=== PATIENT | female | born 1950 | race Caucasian/White ===

== ENCOUNTER → 2017-12-07 11:29 | Outpatient (CLI) | payer MEDICARE, BC, SELFPAY ==
--- NOTE | 2017-12-07 11:37 | XR_ITS ---
EXAM: XR lumbar spine min 4V HISTORY: ITS.REASON: CATRACHITA LOW BACK PAIN ORDERING PHYSICIAN: Dian Terrell PATIENT AGE: 67 years COMPARISON: None FINDINGS: Normal alignment. No fracture or dislocation. No lytic or blastic change. The endplate osteophyte present along the inferior endplate of L2 . IMPRESSION: 1. No acute finding. 2. Small endplate osteophyte inferior endplate of L2
== END ==
PROVIDERS: PCP Nurse Practitioner Family; Visit Provider Nurse Practitioner Family
DX: M54.5 Low back pain (principal)
CPT/HCPCS: 72110

== ENCOUNTER → 2017-12-22 10:48 | Outpatient (CLI) | payer MEDICARE, BC, SELFPAY ==
--- NOTE | 2017-12-22 10:50 | MR_ITS ---
MR lumbar spine wo con, MR 3-d myelogram/MRCP HISTORY: Left-sided sciatica, severe low back pain with weakness in legs, leg pain ITS.REASON: LEFT SIDED SCIATICA ORDERING PHYSICIAN: Darius Joseph MD PATIENT AGE: 67 years COMPARISON: Radiograph of 12/07/2017 TECHNIQUE: Standard multiplanar multiecho sequences are performed without contrast. 3-D MIP and myelographic images are also rendered and reviewed FINDINGS: There is normal alignment. The spinal cord ends at the T12 level. The disc spaces are well-preserved. No disc herniation, canal stenosis, lateral recess, or foraminal narrowing evident. No significant disc bulge or significant degenerative change. There is a small area of decreased T2 signal which involves the mid aspect of the left kidney laterally. This measures 9 mm. IMPRESSION: 1. Negative MRI of the lumbar spine. 2. Small T2 hypointensity in the left kidney laterally which could be due to a hemorrhagic cyst. Ultrasound may confirm.
== END ==
PROVIDERS: Family Provider Internal Medicine Adolescent Medicine; PCP Nurse Practitioner Family; Visit Provider Internal Medicine Adolescent Medicine
DX: M54.32 Sciatica, left side (principal)
CPT/HCPCS: 72148; 76376

== ENCOUNTER → 2019-05-18 16:35 | Outpatient (CLI) | payer MEDICARE, BC, SELFPAY ==
[2019-05-18 17:32] LABS: Adenovirus F 40/41, stool Not Detected (NotDetected); Astrovirus Not Detected (NotDetected); Campylobacter Not Detected (NotDetected); Clostridium Difficile A/B, PCR Not Detected (NotDetected); Cryptosporidium Not Detected (NotDetected); Cyclospora Cayetanesis Not Detected (NotDetected); Entamoeba histolytica Not Detected (NotDetected); Enteroaggregative E coli Not Detected (NotDetected); Enteropathogenic E coli Not Detected (NotDetected); Enterotoxigenic E coli Not Detected (NotDetected); Giardia lamblia Not Detected (NotDetected); Norovirus Not Detected (NotDetected); Plesimonas Shigalloides, PCR Not Detected (NotDetected); Rotavirus A Not Detected (NotDetected); Salmonella, PCR Not Detected (NotDetected); Sapovirus Not Detected (NotDetected); Shiga-like toxin E coli Not Detected (NotDetected); Shigella Enterovasive E coli Not Detected (NotDetected); Vibrio Cholerae Not Detected (NotDetected); Vibrio, PCR Not Detected (NotDetected); Yersinia Entercolitica, PCR Not Detected (NotDetected)
== END ==
PROVIDERS: PCP Internal Medicine Adolescent Medicine; Visit Provider Emergency Medicine
DX: K52.89 Other specified noninfective gastroenteritis and colitis (principal)
CPT/HCPCS: 87507

== ENCOUNTER → 2019-07-30 14:46 | Outpatient (CLI) | payer MEDICARE, BC, SELFPAY ==
--- NOTE | 2019-07-30 14:51 | MR_ITS ---
PROCEDURE: MR HEAD/BRAIN WO CON CLINICAL INDICATION: VERTIGO, TINNITUS OF BOTH EARS COMPARISON: No exams were available for comparison TECHNIQUE: At routine multi-echo and multiplanar images including susceptibility and diffusion-weighted images. FINDINGS: There is no mass, hemorrhage or extra-axial fluid collections. There are no areas of restricted diffusion. Ventricles, sulci and cortical areas are normal. The brainstem areas and posterior fossa structures including petrous portions of the temporal bones and internal auditory canals are normal however study is somewhat limited without the use of intravenous contrast. There is evidence of left orbital globe lens surgery and otherwise the visualized portions of the optic pathway structures are normal. There are small symmetrical areas of increased FLAIR signal within the periventricular white matter adjacent to the trigone portion of the lateral ventricles in a few small foci involving bilateral superior frontal lobe areas. Visualized vessels are patent in the area the foramen magnum is normal. The visualized paranasal sinuses and mastoid air cells are clear. IMPRESSION: White matter findings as described nonspecific although likely either age related or from mild chronic microvascular ischemic change. Dictated by: Sam Oscar 07/30/2019 16:29 Electronically signed by Sam Oscar in [place] 07/30/2019 16:29
== END ==
PROVIDERS: PCP Internal Medicine Adolescent Medicine; Visit Provider Internal Medicine Adolescent Medicine
DX: R42 Dizziness and giddiness (principal); H93.13 Tinnitus, bilateral
CPT/HCPCS: 70551

== ENCOUNTER 2020-08-19 11:44 | Emergency (ER) | payer MEDICARE, BC, SELFPAY ==
[2020-08-19 11:55] VITALS: BP 155/93; PULSE 118; RESP 18; TEMP 36.7; O2SAT 98; BMI 29.7
--- NOTE | 2020-08-19 12:14 | HMH.EDUTC ---
[facility] [place] Impression: Sinusitis Qualifiers: Sinusitis location: unspecified location Chronicity: unspecified Qualified Code(s): J32.9 - Chronic sinusitis, unspecified Disposition: Home, Self-Care Condition on Discharge: Good Instructions: Sinusitis, Sinus Headache, DI for Sinusitis, Azithromycin, Mometasone Nasal Victor Additional Instructions: *Monitor Temp, Over the counter Motrin or Tylenol as directed/as needed Tylenol every 4 hours and Motrin every 6 hours (as long as your family doctor has told you that you can take it) for fever or pain. and straight to ER if unable to lower temp less than 101.0 after medication given *Warm salt water gargles may help to soothe the throat *Throat Lozenges *Warm fluids like tea with honey may help to soothe the throat *Sleep elevated *Humidifier/Vaporizer Continue using nasal spray as prescribed Follow up IMMEDIATELY for new or worsening symptoms or no Noticeable improvement over the next 48-72 hours. 911 for difficulty breathing or swallowing Prescriptions: Benzonatate [Tessalon Perle 100mg Cap*] 100 mg PO TID PRN #15 cap PRN Reason: Cough [facility]: [facility] Azithromycin [Z-Michael 250mg Tab] 250 mg PO DIRECTED #6 tab Transmission Status: [facility] Referrals: Darius Joseph MD [Primary Care Provider] - As needed Time of Disposition: 12:24 Medical Decision Making - Cral Inquiry Pt receiving controlled substance: No Carl was queried for this patient: No Vital Signs: 08/19/20 11:55 Temperature 98.1 F Temperature Source Oral Pulse Rate [Radial] 118 H Respiratory Rate 18 Blood Pressure [Right Arm] 155/93 H Blood Pressure Mean [Right Arm] 113 Blood Pressure Source [Right Arm] Automatic Cuff Blood Pressure Position [Right Arm] Sitting 02 Sat by Pulse Oximetry 98 Oxygen Delivery Method Room Air Medical Decision Narrative: Patient state that she has taken azithromycin without reaction and complications [facility] [place] - General Stated complaint: sinus, headache,sore throat Time Seen by Provider: 08/19/20 12:14 Mode of Arrival: Ambulatory Source of Information: Patient Limitations: No Limitations Description of Symptoms (Recalled from Triage Doc. by RN): sinus, headache, sore throat. HEENT Symptoms (Recalled from RN notes): Yes Resp Symptoms (Recalled from RN notes): No Skin Symptoms (Recalled from RN notes): No MS Symptoms (Recalled from RN notes): No Functional Status (Recalled from RN notes): wnl - History of Present Illness Provider Complaint: Patient states that she gets a bad sinus infection about this time every year and has to come in and get a zpack States that she has been having sinus pain and pressure along with drainage in the back of her throat that is making her throat irritated States that drainage started clear and now is yellowish green and making her have a sinus headache and cough Denies exposure to COVID - Related Data Home Medications Medication Instructions Recorded Confirmed Fexofenadine/Pseudoephedrine 1 each PO DAILY 03/01/18 07/15/19 [Michelle-D 24 Hour Tablet] Previous Rx's Medication Instructions Recorded Meclizine HCl [Meclizine 25mg Tab] 25 mg PO TID PRN #15 tab 07/15/19 Azithromycin [Z-Michael 250mg Tab] 250 mg PO DIRECTED #6 tab 08/19/20 Benzonatate [Tessalon Perle 100mg 100 mg PO TID PRN #15 cap 08/19/20 Cap*] Allergies Allergy/AdvReac Type Severity Reaction Status Date / Time Penicillins [PENICILLINS] Allergy Unknown Verified 03/01/18 16:08 bacitracin Allergy Verified 04/14/18 15:09 [From Neosporin ([id number])] gabapentin Allergy Verified 12/29/18 10:14 neomycin Allergy Verified 04/14/18 15:09 [From Neosporin ([id number])] polymyxin B Allergy Verified 04/14/18 15:09 [From Neosporin ([id number])] - Worker's Comp Is this a Worker's Comp case?: No [facility] History -
[2020-08-19 12:24] VITALS: BP 155/93; PULSE 118; RESP 18; TEMP 36.7; O2SAT 98
== END 2020-08-19 12:26 | disposition home or self-care (01) ==
PROVIDERS: Emergency Provider Nurse Practitioner; PCP Internal Medicine Adolescent Medicine
DX: J32.9 Chronic sinusitis, unspecified (principal); C50.911 Malignant neoplasm of unspecified site of right female breast; Z90.49 Acquired absence of other specified parts of digestive tract; Z90.710 Acquired absence of both cervix and uterus; Z88.0 Allergy status to penicillin
CPT/HCPCS: 99201

== ENCOUNTER → 2020-09-03 16:23 | Outpatient (CLI) | payer MEDICARE, BC, SELFPAY ==
--- NOTE | 2020-09-03 | XR_ITS ---
PROCEDURE: XR RIBS RT 2V CLINICAL INDICATION: RT CHEST WALL PAIN COMPARISON: No exams were available for comparison FINDINGS: Multiple views of the right ribs show no obvious fracture. No lytic or blastic change. Consider follow-up in 7-[address] with 3D reformats if pain persists IMPRESSION: No acute findings. Dictated by: David Salinas MD 09/03/2020 17:18 David Salinas MD in [place] 09/03/2020 17:18
--- NOTE | 2020-09-03 | XR_ITS ---
PROCEDURE: XR CHEST 2V CLINICAL HISTORY: RT CHEST WALL PAIN COMPARISON: CR CXR CHEST(2 VIEWS-NOT PORTABLE) from 08/08/2014 FINDINGS: The cardiomediastinal silhouette and pulmonary vascularity are within normal limits. The lungs are clear without infiltrates, suspicious nodules, or pleural effusions. Calcified granuloma is present in the left lower lobe. No acute bony abnormalities. IMPRESSION: No acute findings. Dictated by: David Salinas MD 09/03/2020 17:19 David Salinas MD in [place] 09/03/2020 17:19
== END ==
PROVIDERS: PCP Internal Medicine Adolescent Medicine; Visit Provider Internal Medicine Adolescent Medicine
DX: R07.89 Other chest pain (principal)
CPT/HCPCS: 71046; 71100

== ENCOUNTER 2021-08-04 10:30 | Emergency (ER) | payer MEDICARE, BC, SELFPAY ==
[2021-08-04 10:40] VITALS: BP 141/73; PULSE 71; RESP 18; TEMP 36.7; O2SAT 97; BMI 28.3
--- NOTE | 2021-08-04 11:11 | HMH.EDUTC ---
[facility] [place] Impression: Infected skin tear Disposition: Home, Self-Care Condition on Discharge: Good Instructions: DI for Cellulitis -- Adult, Doxycycline Additional Instructions: Clean area well with antibacterial soap and water Take oral antibiotic as prescribed Return if needed Straight to ER if any life threatening symptoms Follow up with Family Doctor if needed Prescriptions: Doxycycline Monohydrate [Doxycycline Jennings 100mg Tab] 100 mg PO Q12 7 Days #14 tab Transmission Status: Received by [facility] Referrals: Darius Joseph MD [Primary Care Provider] - As needed Time of Disposition: 11:17 Medical Decision Making - Carl Inquiry Pt receiving controlled substance: No Carl was queried for this patient: No Vital Signs: 08/04/21 10:40 08/04/21 11:13 Temperature 98.0 F 98.0 F Temperature Source Temporal Artery Scan Pulse Rate 71 Pulse Rate [Right Brachial] 71 Respiratory Rate 18 18 Blood Pressure 141/73 H Blood Pressure [Right Arm] 141/73 H Blood Pressure Mean [Right Arm] 95 Blood Pressure Source [Right Arm] Automatic Cuff Blood Pressure Position [Right Arm] Sitting 02 Sat by Pulse Oximetry 97 Oxygen Delivery Method Room Air [facility] [place] - General Stated complaint: AO 07/31 laceration rt arm Time Seen by Provider: 08/04/21 11:11 Mode of Arrival: Ambulatory Source of Information: Patient Limitations: No Limitations Description of Symptoms (Recalled from Triage Doc. by RN): PATIENT C/O SKIN TEAR TO RIGHT FOREARM. SHE REPORTS ON MONDAY SHE WAS TRYING TO CATCH A CABINET WHILE IT WAS FALLING AND IT CUT HER ARM. SHE STATES SHE IS UP TO DATE ON TDAP HEENT Symptoms (Recalled from RN notes): No Resp Symptoms (Recalled from RN notes): No Skin Symptoms (Recalled from RN notes): Yes MS Symptoms (Recalled from RN notes): No Functional Status (Recalled from RN notes): WNL - History of Present Illness Provider Complaint: Patient states that she is up to date on her TDAP States that on Monday a cabinet door was falling and she tried to catch it and it caused a skin tear on her right forearm States that she thought it would be ok but today she noticed it was looking red like it was getting infected so she came in to get it checked out - Related Data Previous Rx's Medication Instructions Recorded Doxycycline Monohydrate 100 mg PO Q12 7 Days #14 tab 08/04/21 [Doxycycline Jennings 100mg Tab] Allergies Allergy/AdvReac Type Severity Reaction Status Date / Time Penicillins [PENICILLINS] Allergy Unknown Verified 03/01/18 16:08 bacitracin Allergy Verified 04/14/18 15:09 [From Neosporin ([id number])] gabapentin Allergy Verified 12/29/18 10:14 neomycin Allergy Verified 04/14/18 15:09 [From Neosporin ([id number])] polymyxin B Allergy Verified 04/14/18 15:09 [From Neosporin ([id number])] - Worker's Comp Is this a Worker's Comp case?: No [facility] [place] History - Hepatitis A Screen Drug use history?: No High risk sexual behaviors?: No History of sexually transmitted infection?: No Currently employed?: No Childcare worker?: No Do you have indoor plumbing?: Yes Do you have electricity?: Yes Attestation statement:: This patient has been screened for Hepatitis A risk factors. I have reviewed the patient's past medical history: Yes Medical History: Reports:: Cancer (breast, stage 0, completed radiation only) Denies:: Diabetes Mellitus Type 1, Diabetes Mellitus Type 2, MRSA Other Medical History: Reports: Other (allergies) Laterality Cases: Right: Lumpectomy, Other, Bilateral: Tonsillectomy Other Surgeries: Yes: Appendectomy, Cholecystectomy, Other (hysterectomy, right breast lumpectomy (preca, stage 0), lt foot cyst,) Amputation: No Fractures: No - Social History Smoking Status: Never smoker Alcohol Intake: never Occupational Status: other Housing: house Household Members: spouse ROS Obtained: Yes All systems rev
[2021-08-04 11:13] VITALS: BP 141/73; PULSE 71; RESP 18; TEMP 36.7; O2SAT 97
== END 2021-08-04 11:31 | disposition home or self-care (01) ==
PROVIDERS: Emergency Provider Nurse Practitioner; PCP Internal Medicine Adolescent Medicine
DX: S51.811A Laceration without foreign body of right forearm, initial encounter (principal); W22.03XA Walked into furniture, initial encounter; Y92.019 Unspecified place in single-family (private) house as the place of occurrence of the external cause; Z88.0 Allergy status to penicillin
CPT/HCPCS: 99202; G0463

== ENCOUNTER 2021-12-25 14:11 | Emergency (ER) | payer MEDICARE, BC, SELFPAY ==
--- NOTE | 2021-12-25 15:26 | HMH.EDUTC ---
[facility] [place] Clinical Impression: Left otitis media Qualifiers: Otitis media type: suppurative Chronicity: acute Recurrence: non-recurrent Spontaneous tympanic membrane rupture: without spontaneous rupture Qualified Code(s): H66.002 - Acute suppurative otitis media without spontaneous rupture of ear drum, left ear Disposition: Home, Self-Care Condition on Discharge: Good Instructions: Middle Ear Infection Additional Instructions: Drink plenty of fluids. Take tylenol for pain or fever. Take the medications as directed. Follow up with your regular doctor. GO TO THE ER FOR ANY WORSENING SYMPTOMS Don't start the oral steroids until tomorrow, since you had the shot here today. Prescriptions: methylPREDNISolone [Medrol] 4 mg PO DIRECTED 6 Days #21 packet Transmission Status: Received by [facility] Azithromycin [Z-Michael 250mg Tab*] 250 mg PO UD DOSE PK #6 tab Transmission Status: Received by [facility] Referrals: Darius Joseph MD [Primary Care Provider] - Time of Disposition: 16:09 Medical Decision Making - Medical Records Medical records reviewed: No: I reviewed the patient's medical records. - Carl Inquiry Pt receiving controlled substance: No Vital Signs: 12/25/21 15:30 12/25/21 16:17 Temperature 98.2 F 98.2 F Temperature Source Oral Pulse Rate 109 H Pulse Rate [Left] 109 H Respiratory Rate 18 18 Blood Pressure 188/81 H Blood Pressure [Right Arm] 188/81 H Blood Pressure Mean [Right Arm] 116 02 Sat by Pulse Oximetry 96 Orders (Tests/Meds): ED MEDICATIONS Discontinued Medications Generic Name Dose Route Start Last Admin Trade Name Radha PRN Reason Stop Dose Admin Methylprednisolone Sodium Succinate 125 mg 12/25/21 15:45 12/25/21 15:49 Methylprednisolone Sod Succ 125mg Vial IM 12/25/21 15:46 125 mg ONCE ONE Administration [facility] [place] HPI - General Stated complaint: facial swelling, lt ear pain Time Seen by Provider: 12/25/21 15:26 - History of Present Illness Provider Complaint: She has had left ear pain and a swollen area below her ear for the past 2 days. She gets ear infections frequently and usually she doesn't have this swelling wiht them, but she has had it sometimes in the past. She denies any fever or chills. - Related Data Previous Rx's Medication Instructions Recorded Doxycycline Monohydrate 100 mg PO Q12 7 Days #14 tab 08/04/21 [Doxycycline Attala 100mg Tab] Azithromycin [Z-Michael 250mg Tab*] 250 mg PO UD DOSE PK #6 tab 12/25/21 methylPREDNISolone [Medrol] 4 mg PO DIRECTED 6 Days #21 12/25/21 packet Allergies Allergy/AdvReac Type Severity Reaction Status Date / Time Penicillins [PENICILLINS] Allergy Unknown Verified 03/01/18 16:08 bacitracin Allergy Verified 04/14/18 15:09 [From Neosporin ([id number])] gabapentin Allergy Verified 12/29/18 10:14 neomycin Allergy Verified 04/14/18 15:09 [From Neosporin ([id number]-tyr-[id number])] polymyxin B Allergy Verified 04/14/18 15:09 [From Neosporin ([id number]-jsq-seara)] [facility] History - Hepatitis A Screen Attestation statement:: This patient has been screened for Hepatitis A risk factors. I have reviewed the patient's past medical history: Yes Medical History: Reports:: Cancer (breast, stage 0, completed radiation only) Denies:: Diabetes Mellitus Type 1, Diabetes Mellitus Type 2, MRSA Other Medical History: Reports: Other (allergies) Laterality Cases: Right: Lumpectomy, Other, Bilateral: Tonsillectomy Other Surgeries: Yes: Appendectomy, Cholecystectomy, Other (hysterectomy, right breast lumpectomy (preca, stage 0), lt foot cyst,) Amputation: No Fractures: No - Social History Smoking Status: Never smoker Alcohol Intake: never Occupational Status: other Housing: house Household Members: spouse ROS Obtained: Yes All systems reviewed & no additional complaints - Constitutional Constitutional: Reports as per HPI
[2021-12-25 15:30] VITALS: BP 188/81; PULSE 109; RESP 18; TEMP 36.8; O2SAT 96; BMI 29.0
[2021-12-25 16:17] VITALS: BP 188/81; PULSE 109; RESP 18; TEMP 36.8
== END 2021-12-25 16:17 | disposition home or self-care (01) ==
PROVIDERS: Emergency Provider Nurse Practitioner Family; PCP Internal Medicine Adolescent Medicine
DX: H66.002 Acute suppurative otitis media without spontaneous rupture of ear drum, left ear (principal); Z88.0 Allergy status to penicillin
CPT/HCPCS: G0463; 96372; 99202

== ENCOUNTER → 2022-05-04 12:34 | Outpatient (CLI) | payer MEDICARE, BC, SELFPAY ==
--- NOTE | 2022-05-04 | CA_ITS ---
FINAL REPORT TECHNIQUE: Color Doppler, duplex Doppler and fry scale sonography of the bilateral neck vasculature was performed. Velocities were measured in the carotid arteries. Stenosis evaluation based on velocity criteria. CLINICAL HISTORY: HTN, dizziness FINDINGS: The peak systolic velocity of the right common carotid artery is 91 cm/sec and internal carotid artery 86 cm/sec. The diastolic velocity in the internal carotid artery is 31 cm/sec. The ICA/CCA ratio is 1.44. Visually, a small amount of plaque is seen. These findings are consistent with less than 50% stenosis. The external carotid artery is patent. The right vertebral artery is patent with antegrade flow. The peak systolic velocity of the left common carotid artery is 106 cm/sec and internal carotid artery 87 cm/sec. The diastolic velocity in the internal carotid artery is 30 cm/sec. The ICA/CCA ratio is 1.14. Visually, a small amount of plaque is seen. These findings are consistent with less than 50% stenosis. The external carotid artery is patent. The left vertebral artery is patent with antegrade flow. IMPRESSION: No evidence of significant carotid stenosis. Bilateral patent vertebral arteries. If indicated, CTA or MRA could further evaluate. Reviewed, Interpreted and Dictated by Benoit Matamoros III, MD Transcribed by Robert Ventura Authenticated and [facility]
== END ==
PROVIDERS: PCP Internal Medicine Adolescent Medicine; Visit Provider Nurse Practitioner Family
DX: R42 Dizziness and giddiness (principal); I10 Essential (primary) hypertension
CPT/HCPCS: 93880

== ENCOUNTER 2022-10-30 15:11 | Emergency (ER) | payer MEDICARE, BC, SELFPAY ==
--- NOTE | 2022-10-30 17:03 | XR_ITS ---
PROCEDURE INFORMATION: Exam: XR Right Hip Exam date and time: 10/30/2022 5:01 PM Age: 72 years old Clinical indication: Patient HX: Right hip pain down leg TECHNIQUE: Imaging protocol: Radiologic exam of the Right hip. Views: 2 or 3 views hip with pelvis when performed. COMPARISON: CR Acute Abdomen 05/18/2019 1:07 PM FINDINGS: Bones/joints: Unremarkable for age. No acute fracture, deformity or bone lesion detected. Joint surfaces preserved. Soft tissues: Unremarkable. IMPRESSION: Negative examination right hip.
--- NOTE | 2022-10-30 17:03 | XR_ITS ---
PROCEDURE INFORMATION: Exam: XR Right Femur Exam date and time: 10/30/2022 5:03 PM Age: 72 years old Clinical indication: Patient HX: Right hip pain down leg TECHNIQUE: Imaging protocol: Radiologic exam of the Right femur. Views: 2 views. COMPARISON: CR XR HIP RT 2-3V W/PELVIS 10/30/2022 5:01 PM FINDINGS: Bones/joints: Unremarkable. No acute fracture. No bony deformity. Soft tissues: Unremarkable. IMPRESSION: Normal exam.
[2022-10-30 17:10] VITALS: BP 196/86; PULSE 85; RESP 20; TEMP 36.8; O2SAT 99; BMI 29.8
--- NOTE | 2022-10-30 17:26 | EXP.UTC ---
Discharge Plan Disposition Patient Disposition: Home, Self-Care Condition: Good Prescriptions Prescriptions: New methylprednisolone 4 mg Tablets,Dose Pack 4 mg PO DIRECTED Qty: 21 0RF Discontinued doxycycline monohydrate 100 MG tablet 100 mg PO Q12 7 Days Qty: 14 0RF azithromycin 250 MG tablet 250 mg PO UD DOSE PK Qty: 6 0RF Rx Instructions: Take two (2) tablets today, then one (1) tablet days #2 thru #5 methylprednisolone 4 MG tablets,dose pack 4 mg PO DIRECTED 6 Days Qty: 21 0RF Referrals Follow up/Referrals: Darius Joseph MD [Primary Care Provider] - See instructions Activity Restrictions/Add. Instructions Additional Instructions/Restrictions: Go home and rest. It would be best if you rested for the next few days and try not to over do anything. No heavy lifting. No twisting. Take the oral medications as directed. Don't start the oral steroids (medrol dose pack) until tomorrow, since you had the shots in here today. Follow up with your regular doctor. If you're not doing some better within 48 hours then make sure you follow up here or with your primary care physician. GO TO THE ER FOR ANY WORSENING SYMPTOMS OR CONCERN, ESPECIALLY BOWEL OR BLADDER ISSUES, SADDLE AREA NUMBNESS, FEVER, ETC Clinical Impressions Clinical Impression: Radicular pain of right lower extremity Instructions Patient Instructions: Methylprednisolone Injection, DI for Lumbar Radiculopathy, Ketorolac Injection Discharge ED Provider: Ramez Chery [facility] General Stated complaint: right hip pain no accident Time Seen by Provider: 10/30/22 17:26 History of Present Illness Provider Complaint: She c/o pain in her right leg that radiates from her hip area down her leg to her foot. She denies any known injury. She has a history of getting sciatica of her left leg, but she has never had it in the right. She states that this feels like her sciatica but she has never had it in this leg before. She denies any recent injury, falls, etc. She denies any fever/chills/malaise. She does have a history of advanced osteopenia, so she is worried about her hip and would like it to be x-rayed. Related Data Previous Rx's Medication Instructions Recorded methylprednisolone 4 mg tablets in 4 mg PO DIRECTED #21 tabs 01/01/23 a dose pack Allergies Allergy/AdvReac Type Severity Reaction Status Date / Time Penicillins [PENICILLINS] Allergy Unknown Verified 03/01/18 16:08 bacitracin Allergy Verified 04/14/18 15:09 [From Neosporin ([id number])] gabapentin Allergy Verified 12/29/18 10:14 neomycin Allergy Verified 04/14/18 15:09 [From Neosporin ([id number])] polymyxin B Allergy Verified 04/14/18 15:09 [From Neosporin ([id number])] [facility] Disclaimer: The information contained in this section may have been updated after the patient was seen, as this information can be updated by other users. Medical History Kidney stone Urinary tract infection Surgical History History of appendectomy History of section History of cholecystectomy History of hysterectomy Social History Smoking Status: Never smoker alcohol intake: never current occupational status: other Travel in the last 8 weeks: None household members: spouse housing: house ROS Obtained: Yes All systems reviewed & no additional complaints except as documented Constitutional Constitutional: Denies chills and Denies fever(s) Eyes Eyes: Denies eye discharge ENT Ears, Nose, Mouth, and Throat: Denies dizziness, Denies otalgia and Denies sore throat Cardiovascular Cardiovascular: Denies chest pain Respiratory Respiratory: Denies shortness of breath, Denies chest congestion, Denies cough, Denies stridor and Denies whee
[2022-10-30 17:45] VITALS: BP 196/86; PULSE 85; RESP 20; TEMP 36.8; O2SAT 99
== END 2022-10-30 18:07 | disposition home or self-care (01) ==
PROVIDERS: Emergency Provider Nurse Practitioner Family; PCP Internal Medicine Adolescent Medicine
DX: M54.10 Radiculopathy, site unspecified (principal); M25.551 Pain in right hip; M85.80 Other specified disorders of bone density and structure, unspecified site
CPT/HCPCS: 73502; 73552; 96372; 99213; 99214; G0463

== ENCOUNTER → 2022-11-09 07:07 | Outpatient (CLI) | payer MEDICARE, BC, SELFPAY ==
--- NOTE | 2022-11-09 07:32 | MR_ITS ---
FINAL REPORT CLINICAL HISTORY: ACUTE RIGHT SIDED LOW BACK PAIN WITH SCIATICA. low back pain into right hip x1.5 weeks. FINDINGS: MRI LUMBAR SPINE W/O CONTRAST Multiplanar MR imaging of the lumbar spine was performed without contrast. On the sagittal T2-weighted images, disc degeneration is seen at multiple levels. There are mild endplate changes at multiple levels. Several hemangiomas are noted. The vertebral alignment is normal. There is no evidence of fracture. The conus has an unremarkable appearance. L1-2: No significant central canal stenosis or neural foraminal narrowing. L2-3: An annular disc bulge is present. No significant central canal stenosis or neural foraminal narrowing. L3-4: An annular disc bulge is present. No significant central canal stenosis or neural foraminal narrowing. L4-5: An annular disc bulge is present. No significant central canal stenosis or neural foraminal narrowing. L5-S1: No significant central canal stenosis or neural foraminal narrowing. IMPRESSION: Multilevel disc degeneration and spondylosis as above. Reviewed, Interpreted and Dictated by Benoit Matamoros III, MD Transcribed by Daphne Flannery Authenticated and [facility]
== END ==
PROVIDERS: PCP Internal Medicine Adolescent Medicine; Visit Provider Internal Medicine Adolescent Medicine
DX: M54.41 Lumbago with sciatica, right side (principal)
CPT/HCPCS: 72148; 76376

== ENCOUNTER 2022-12-26 11:00 | Outpatient (RCR) | payer MEDICARE, BC, SELFPAY | END 2023-02-10 07:15 | disposition home or self-care (01) | LOC: PT 11:00 | PROVIDERS: PCP Internal Medicine Adolescent Medicine; Visit Provider Orthopaedic Surgery | DX: M54.50 Low back pain, unspecified (principal) | CPT/HCPCS: 97010; 97014; 97110; 97140; 97163; G0283 ==

== ENCOUNTER 2023-07-19 11:07 | Emergency (ER) | payer MEDICARE, BC, SELFPAY ==
[2023-07-19 11:30] VITALS: BP 136/86; PULSE 91; RESP 18; TEMP 36.9; O2SAT 98; BMI 31.9
--- NOTE | 2023-07-19 11:54 | EXP.UTC ---
Discharge Plan Disposition Patient Disposition: Home, Self-Care Condition: Good Prescriptions Prescriptions: New doxycycline hyclate 100 mg capsule 100 mg PO BID Qty: 20 0RF No Action fexofenadine [Michelle] 60 mg Tablet 60 mg PO DAILY Referrals Follow up/Referrals: Darius Joseph MD [Primary Care Provider] - See instructions Activity Restrictions/Add. Instructions Additional Instructions/Restrictions: Warm compresses on eyelid Clean with warm water and baby shampoo Follow up with your Family Doctor or Eye Doctor if no improvement or any worsening of symptoms Take antibiotics as prescribed Straight to ER if any life threatening symptoms Clinical Impressions Clinical Impression: Hordeolum externum (stye) Qualifiers: Laterality: right Eyelid: upper Qualified Code(s): H00.011 - Hordeolum externum right upper eyelid Instructions Patient Instructions: DI for Hordeolum, Hordeolum, Doxycycline Discharge ED Provider: Arlene Horton [facility] [place] HPI General Stated complaint: eye pain Mode of Arrival: Ambulatory Source of Information: Patient Limitations: No Limitations Time Seen by Provider: 07/19/23 11:54 Description of Symptoms (Recalled from Triage Doc. by RN): Stye on right eye. OVer the counter ointment is not working. HEENT Symptoms (Recalled from RN notes): Yes Resp Symptoms (Recalled from RN notes): No Skin Symptoms (Recalled from RN notes): No MS Symptoms (Recalled from RN notes): No Functional Status (Recalled from RN notes): n/a History of Present Illness Provider Complaint: Patient states that she has been having redness and swelling in right eye from stye on inner corner of her eye State that she has been doing warm compresses and over the counter stye medication but it hasnt been working States that today it is more sore and swelling in her eyelid so she came in to get something to help Related Data Home Medications Medication Instructions Recorded Confirmed fexofenadine 60 mg tablet 60 mg PO DAILY allergies 07/19/23 07/19/23 Previous Rx's Medication Instructions Recorded doxycycline hyclate 100 mg capsule 100 mg PO BID #20 caps 07/19/23 Allergies Allergy/AdvReac Type Severity Reaction Status Date / Time Penicillins [PENICILLINS] Allergy Unknown Verified 07/19/23 11:46 bacitracin Allergy Verified 07/19/23 11:46 [From Neosporin ([id number])] gabapentin Allergy Verified 07/19/23 11:46 neomycin Allergy Verified 07/19/23 11:46 [From Neosporin ([id number])] polymyxin B Allergy Verified 07/19/23 11:46 [From Neosporin ([id number])] Worker's Comp Is this a Worker's Comp case?: No [facility] Disclaimer: The information contained in this section may have been updated after the patient was seen, as this information can be updated by other users. Medical History Kidney stone Urinary tract infection Surgical History History of appendectomy History of section History of cholecystectomy History of hysterectomy Social History Smoking Status: Never smoker alcohol intake: never current occupational status: other Travel in the last 8 weeks: None household members: spouse housing: house ROS Obtained: Yes All systems reviewed & no additional complaints except as documented and Yes Systems reviewed as appropriate & no additional complaints except as documented Constitutional Constitutional: Reports system reviewed and no additional complaints, except as documented and Reports as per HPI Eyes Eyes: Reports system reviewed and no additional complaints, except as documented, Reports as per HPI and Reports other (redness and swelling from stye in her right eyelid for 3-5 days) ENT Ears, Nose, Mouth, and Throat: Reports system reviewed and no additional complaints, excep
[2023-07-19 12:15] VITALS: BP 136/86; PULSE 91; RESP 16; TEMP 36.9; O2SAT 98
== END 2023-07-19 12:15 | disposition home or self-care (01) ==
PROVIDERS: Emergency Provider Nurse Practitioner; PCP Internal Medicine Adolescent Medicine
DX: H00.011 Hordeolum externum right upper eyelid (principal)
CPT/HCPCS: 99212; 99214; G0463

== ENCOUNTER 2023-08-31 15:54 | Emergency (ER) | payer MEDICARE, BC, SELFPAY ==
[2023-08-31 16:00] VITALS: BP 172/92; PULSE 96; RESP 20; TEMP 36.6; O2SAT 96; BMI 29.0
--- NOTE | 2023-08-31 16:14 | EXP.UTC ---
Discharge Plan Disposition Patient Disposition: Home, Self-Care Condition: Good Prescriptions Prescriptions: No Action fexofenadine [Michelle] 60 mg Tablet 60 mg PO DAILY doxycycline hyclate 100 mg capsule 100 mg PO BID Qty: 20 0RF Referrals Follow up/Referrals: Darius Joseph MD [Primary Care Provider] - See instructions Activity Restrictions/Add. Instructions Additional Instructions/Restrictions: Keep area clean and dry Follow up with your Family Doctor if any signs of infection including but not limited too redness, swelling, drainage etc Return if needed Straight to ER if any life threatening symptoms Allow dermabond to wear off do not pick or pull off Clinical Impressions Clinical Impression: Skin tear Instructions Patient Instructions: DI for Laceration Repair-Skin Glue Discharge ED Provider: Arlene Horton [facility] General Stated complaint: AO08/30 RT hand lac Mode of Arrival: Ambulatory Source of Information: Patient Limitations: No Limitations Time Seen by Provider: 08/31/23 16:15 Description of Symptoms (Recalled from Triage Doc. by RN): PATIENT C/O LACERATION TO RIGHT HAND AFTER A TRASH CAN LID CAME DOWN ON HER HAND YESTERDAY HEENT Symptoms (Recalled from RN notes): No Resp Symptoms (Recalled from RN notes): No Skin Symptoms (Recalled from RN notes): Yes MS Symptoms (Recalled from RN notes): No Functional Status (Recalled from RN notes): WNL History of Present Illness Provider Complaint: Patient states that she was handling her trash can late last night when the lid came down and hit her on the top of her right hand causing a skin tear on the top of her right hand States that she cleaned it well and put a bandaid on it and waited till today to come in and get it looked at thinks she may need some steri strips on it to help it heal good Related Data Home Medications Medication Instructions Recorded Confirmed fexofenadine 60 mg tablet 60 mg PO DAILY allergies 07/19/23 07/19/23 Previous Rx's Medication Instructions Recorded doxycycline hyclate 100 mg capsule 100 mg PO BID #20 caps 07/19/23 Allergies Allergy/AdvReac Type Severity Reaction Status Date / Time Penicillins [PENICILLINS] Allergy Unknown Verified 07/19/23 11:46 bacitracin Allergy Verified 07/19/23 11:46 [From Neosporin ([id number])] gabapentin Allergy Verified 07/19/23 11:46 neomycin Allergy Verified 07/19/23 11:46 [From Neosporin ([id number])] polymyxin B Allergy Verified 07/19/23 11:46 [From Neosporin ([id number])] Worker's Comp Is this a Worker's Comp case?: No [facility] Disclaimer: The information contained in this section may have been updated after the patient was seen, as this information can be updated by other users. Medical History Kidney stone Urinary tract infection Surgical History History of appendectomy History of section History of cholecystectomy History of hysterectomy Social History Smoking Status: Never smoker alcohol intake: never current occupational status: other Travel in the last 8 weeks: None household members: spouse housing: house ROS Obtained: Yes All systems reviewed & no additional complaints except as documented and Yes Systems reviewed as appropriate & no additional complaints except as documented Constitutional Constitutional: Reports system reviewed and no additional complaints, except as documented and Reports as per HPI ENT Ears, Nose, Mouth, and Throat: Reports system reviewed and no additional complaints, except as documented and Reports as per HPI Cardiovascular Cardiovascular: Reports system reviewed and no additional complaints, except as documented and Reports as per HPI Respiratory Respiratory: Reports system reviewed and no additio
[2023-08-31 16:27] VITALS: BP 172/92; PULSE 96; RESP 20; TEMP 36.6; O2SAT 96
== END 2023-08-31 16:31 | disposition home or self-care (01) ==
PROVIDERS: Emergency Provider Nurse Practitioner; PCP Internal Medicine Adolescent Medicine
DX: S61.401A Unspecified open wound of right hand, initial encounter (principal); W20.8XXA Other cause of strike by thrown, projected or falling object, initial encounter
CPT/HCPCS: G0168; 99213; 99214; G0463

== ENCOUNTER 2023-10-08 14:26 | Emergency (ER) | payer MEDICARE, BC, SELFPAY ==
[2023-10-08 14:29] VITALS: BP 180/94; PULSE 81; RESP 16; TEMP 36.8; O2SAT 98; BMI 29.0
--- NOTE | 2023-10-08 14:48 | CT_ITS ---
PROCEDURE INFORMATION: Exam: CT Head Without Contrast Exam date and time: 10/08/2023 3:04 PM Age: 73 years old Clinical indication: Dizziness; Additional info: L dizziness, calvarial pressure TECHNIQUE: Imaging protocol: Computed tomography of the head without contrast. Radiation optimization: All CT scans at this facility use at least one of these dose optimization techniques: automated exposure control; mA and/or kV adjustment per patient size (includes targeted exams where dose is matched to clinical indication); or iterative reconstruction. REPORTING DATA: Count of CT and Cardiac NM exams in prior 12 months: This patient has received 0 known CTs and 0 known cardiac nuclear medicine studies in the 12 months prior to the current study. COMPARISON: MR HEAD/BRAIN WO CON 07/30/2019 3:24 PM FINDINGS: Brain: No intracranial hemorrhage. Generalized atrophic changes of the ventricles and subarachnoid spaces. Chronic small-vessel ischemic changes noted. No mass, mass effect or midline shift. Intracranial atherosclerotic changes are noted. Cerebral ventricles: See Brain finding. Paranasal sinuses: Visualized sinuses are unremarkable. No fluid levels. Mastoid air cells: Visualized mastoid air cells are well aerated. Bones/joints: Unremarkable. No acute fracture. Soft tissues: Unremarkable. IMPRESSION: No acute intracranial abnormality. Chronic changes as above.
--- NOTE | 2023-10-08 14:50 | HMH.EDGENADL ---
Discharge Plan Disposition Patient Disposition: Home, Self-Care Prescriptions Prescriptions: New meclizine 25 mg tablet 25 mg PO TID PRN (Reason: dizziness) Qty: 15 0RF nitrofurantoin macrocrystal 100 mg capsule 100 mg PO BID 5 Days Qty: 10 0RF Rx Instructions: must administer with a meal/food No Action fexofenadine [Michelle] 60 mg Tablet 60 mg PO DAILY doxycycline hyclate 100 mg capsule 100 mg PO BID Qty: 20 0RF Referrals Follow up/Referrals: Darius Joseph MD [Primary Care Provider] - See instructions Activity Restrictions/Add. Instructions Additional Instructions/Restrictions: Please follow-up with your primary care provider. Please return to the emergency department if you develop any new or worsening symptoms or become concerned for your health. Please take nitrofurantoin as prescribed for urinary tract infection. Please take meclizine as needed for vertigo. Clinical Impressions Clinical Impression: Vertigo UTI (urinary tract infection) Qualifiers: Urinary tract infection type: acute cystitis Hematuria presence: without hematuria Qualified Code(s): N30.00 - Acute cystitis without hematuria Discharge ED Provider: Jamison Chew General Adult HPI <Jamison Chew MD - Last Filed: 10/08/23 15:29> General Chief complaint: Dizziness Stated complaint: dizziness,vomiting,weakness Time Seen by Provider: 10/08/23 14:33 History of Present Illness HPI narrative: Patient is a 73-year-old female with past medical history of vertigo who presents the emergency department for multiple complaints. Patient states that she has vertiginous symptoms at baseline that come and go however she has had persistent left-sided vertigo over the last 2 weeks that have been refractory to her meclizine. She has previously seen ENT who have told her that she has damaged her middle ear . Patient also has decreased p.o. intake, 1 episode of nonbloody nonbilious vomiting, dark urine and dysuria over the last few days. No falls. No blood thinners. No other acute complaints at this time. Related Data Home Medications Medication Instructions Recorded Confirmed fexofenadine 60 mg tablet 60 mg PO DAILY allergies 07/19/23 07/19/23 Previous Rx's Medication Instructions Recorded doxycycline hyclate 100 mg capsule 100 mg PO BID #20 caps 07/19/23 meclizine 25 mg tablet 25 mg PO TID PRN dizziness #15 tabs 10/08/23 nitrofurantoin macrocrystal 100 mg 100 mg PO BID 5 days #10 caps 10/08/23 capsule Allergies Allergy/AdvReac Type Severity Reaction Status Date / Time Penicillins [PENICILLINS] Allergy Unknown Verified 07/19/23 11:46 bacitracin Allergy Verified 07/19/23 11:46 [From Neosporin ([id number])] gabapentin Allergy Verified 07/19/23 11:46 neomycin Allergy Verified 07/19/23 11:46 [From Neosporin ([id number])] polymyxin B Allergy Verified 07/19/23 11:46 [From Neosporin ([id number])] PFSH <Jamison Chew MD - Last Filed: 10/08/23 15:29> [facility] Disclaimer: The information contained in this section may have been updated after the patient was seen, as this information can be updated by other users. Medical History Kidney stone Urinary tract infection Surgical History History of appendectomy History of section History of cholecystectomy History of hysterectomy Social History Smoking Status: Never smoker alcohol intake: never current occupational status: other Travel in the last 8 weeks: None household members: spouse housing: house <Jamison Chew MD - Last Filed: 10/08/23 15:29> ROS Obtained: Yes Systems reviewed as appropriate & no additional complaints except as documented Physical Exam <Jamison Chew MD - Last Filed: 10/08/23 15:29> General Gene
[2023-10-08 14:59] LABS: Microscopic, Urine URINE MICROSCOPIC (MICROSCOPIC)
[2023-10-08 15:01] LABS: Appearance,Urine CLEAR (Clear); Bilirubin,Urine Negative (Negative); Blood, Urine Negative (Negative); Color,Urine YELLOW (Yellow); Glucose,Urine (UA) Negative (Negative); Ketones,Urine Negative (Negative); Leukocyte Esterase,Urine 1+ (Negative); Nitrate,Urine Negative (Negative); Protein,Urine Negative (Negative); Specific Gravity, Urine >= 1.030 (1.005-1.030); Urobilinogen,Urine 0.2 EU/dl (0.2)
--- NOTE | 2023-10-08 15:02 | PC.NURSE ---
Pt to rad
--- NOTE | 2023-10-08 15:03 | PC.NURSE ---
Patient to CT
--- NOTE | 2023-10-08 15:13 | ECG_ITS ---
APPROVED REPORT Exam: Resting ECG HR:81 bpm ECG Measurements Heart Rate 81 AXES LA 156 P 65 QRSd 86 QRS 52 QT 393 T 59 QTc 430 Conclusion SINUS RHYTHM NORMAL ECG UNCONFIRMED REPORT Electronically signed by : Darius Joseph MD 10/09/2023 19:19:17
[2023-10-08 15:15] LABS: Basophils % 0.5 % (0.1-2.0); Eosinophils # 0.1 K/mm3 (0.0-0.4); Eosinophils % 0.7 % (0.1-12.0); Hematocrit 47.8 % (37.0-47.0); Hemoglobin 15.7 g/dL (12.2-16.2); Lymphocytes # 2.9 K/mm3 (0.7-4.5); Lymphocytes % 32.9 % (10-50); Mean Corpuscular HGB Conc 32.9 g/dL (31.8-35.4); Mean Corpuscular Hemoglobin 29.1 pg (27.0-31.2); Mean Corpuscular Volume 88.6 fl (81-99); Mean Platelet Volume 7.9 fl (7.4-10.4); Monocytes # 0.4 K/mm3 (0.1-1.0); Monocytes % 4.6 % (1.7-9.3); Neutrophils # 5.4 K/mm3 (1.8-7.8); Neutrophils % 61.5 % (37.0-80.0); Platelet Count 275 K/mm3 (142-424); Red Cell Distribution Width 14.5 % (11.5-17.5); White Blood Count 8.8 K/mm3 (4.8-10.8)
[2023-10-08 15:19] LABS: Chloride 106 mmol/L (98-107); Potassium 3.9 mmoL/L (3.5-5.1); Sodium 141 mmol/L (136-145)
--- NOTE | 2023-10-08 15:20 | PC.NURSE ---
Rounded on patient; Call light within reach of patient
[2023-10-08 15:21] LABS: Blood Urea Nitrogen 9 mg/dl (7-17); Creatinine Clearance Estimated 64 mL/min (50-200); Estimated Glomerular Filt Rate 82 ml/min (>60); GFR (African American) 99 ML/MIN (>60)
[2023-10-08 15:22] LABS: Alanine Aminotransferase 27 U/L (12-78); Albumin Level 4.5 g/dl (3.5-5.0); Albumin/Globulin Ratio 1.5 (1.1-1.8); Alkaline Phosphatase 65 U/L (38-126); Anion Gap 10.9 mEq/L (5-15); Aspartate Amino Transferase 30 U/L (14-36); Bilirubin,Total 0.7 mg/dl (0.2-1.3); Calcium 8.8 mg/dl (8.4-10.2); Carbon Dioxide 28 mmol/L (22.0-30.0); Globulin 3.1 g/dL (1.3-3.2); Glucose 108 mg/dl (74-100); Lipase 78 U/L (23-300); Total Protein,Serum 7.6 g/dl (6.3-8.2)
--- NOTE | 2023-10-08 15:25 | PC.NURSE ---
Rounded on patient; call light within reach
[2023-10-08 15:31] VITALS: BP 164/75; PULSE 79; RESP 16; O2SAT 97
[2023-10-08 16:02] VITALS: BP 158/66; PULSE 78; RESP 17; O2SAT 95
[2023-10-08 16:16] LABS: Coronavirus 19, PCR Not Detected (NotDetected); Influenza A, PCR Not Detected (NotDetected); Influenza B, PCR Not Detected (NotDetected)
[2023-10-08 16:17] VITALS: BP 185/82; PULSE 77; RESP 16; O2SAT 98
[2023-10-08 16:21] VITALS: BP 177/77; PULSE 80; RESP 16; O2SAT 98
[2023-10-08 16:30] VITALS: BP 177/77; PULSE 82; RESP 16; TEMP 36.8; O2SAT 98
== END 2023-10-08 16:35 | disposition home or self-care (01) ==
PROVIDERS: Emergency Provider Emergency Medicine; PCP Internal Medicine Adolescent Medicine
DX: N30.00 Acute cystitis without hematuria (principal); R42 Dizziness and giddiness
CPT/HCPCS: 70450; 80053; 81001; 83690; 83735; 85025; 87086; 87636; 93005; 96361; 96374; 99285; J2405

== ENCOUNTER 2023-12-12 16:51 | Emergency (ER) | payer MEDICARE, BC, SELFPAY ==
[2023-12-12 17:50] VITALS: BP 186/60; PULSE 86; RESP 20; TEMP 36.7; O2SAT 98; BMI 29.2
--- NOTE | 2023-12-12 18:08 | EXP.UTC ---
Discharge Plan Disposition Patient Disposition: Home, Self-Care Condition: Good Prescriptions Prescriptions: New sulfamethoxazole-trimethoprim [Bactrim DS] 800-160 mg tablet 1 tab PO BID 5 Days Qty: 10 0RF phenazopyridine [Pyridium] 200 mg tablet 200 mg PO Q8H 2 Days Qty: 6 0RF No Action meclizine 25 mg tablet 25 mg PO TID PRN (Reason: dizziness) Qty: 15 0RF nitrofurantoin macrocrystal 100 mg capsule 100 mg PO BID 5 Days Qty: 10 0RF Rx Instructions: must administer with a meal/food fexofenadine [Michelle] 60 mg Tablet 60 mg PO DAILY doxycycline hyclate 100 mg capsule 100 mg PO BID Qty: 20 0RF Referrals Follow up/Referrals: Darius Joseph MD [Primary Care Provider] - See instructions Activity Restrictions/Add. Instructions Additional Instructions/Restrictions: *Increase fluids. Water not Soda or Tea *Start antibiotic immediately and be sure to take as ordered for the FULL length of time although you should start to see improvement over the next 48 hours *Pyridium as needed Remember this medication will turn your urine . This is normal but it will stain what ever it gets on *You should not use Pyridium for more than 48 hours. If so , follow up with your primary physician to review urine culture and ensure that antibiotic is adequate for infection *Be SURE to follow up anytime for new or worsening symptoms with your family doctor. AND in 48 hours for urine culture results with your family doctor, if you do not have a doctor then you may call back to the [facility] for urine culture results and further treatment. We do recommend that you choose and establish care with a Primary Care Physician. ?AND follow up with them ?in 10-14 days to repeat UA to ensure infection is resolved and blood no longer present *Be sure to let your PCP know that we sent urine cultures from the [facility] so they can follow up to ensure that you area the on the correct antibiotic Call your doctor office and make appointment for 48 hours (2 days from today) ?to follow up and get the results of your urine culture and further treatment Clinical Impressions Clinical Impression: UTI (urinary tract infection) Qualifiers: Urinary tract infection type: site unspecified Hematuria presence: without hematuria Qualified Code(s): N39.0 - Urinary tract infection, site not specified Instructions Patient Instructions: DI for Urinary Tract Infection (UTI), DI for Ear Pain-Adult Discharge ED Provider: Arlene Horton [facility] [place] HPI General Stated complaint: pain in kidney area on both sides Mode of Arrival: Ambulatory Source of Information: Patient Limitations: No Limitations Time Seen by Provider: 12/12/23 18:09 Description of Symptoms (Recalled from Triage Doc. by RN): PATIENT C/O BURNING WITH URINATION X 3 WEEKS, BILATERAL FLANK PAIN AND LEFT EAR PAIN/SWELLING HEENT Symptoms (Recalled from RN notes): Yes Resp Symptoms (Recalled from RN notes): No Skin Symptoms (Recalled from RN notes): No MS Symptoms (Recalled from RN notes): No Functional Status (Recalled from RN notes): WNL History of Present Illness Provider Complaint: Patient states that she has been having achy like feeling in her back around her kidneys, burning with urination and feeling of urgency and frequency States that she seen her PCP in Oct for it and was started on Macrobid but didnt finish it because she was having some side effects from the medication so tonight when she was still having bilateral flank pain, burning with urination and pain in her left ear she came in to get checked again and see if there was something else she can take Related Data Home Medications Medication Instructions Recorded Confirmed fexofenadine 60 mg tablet 60 mg PO DAILY allergies 07/19/23 07/19/23 Previous Rx's Medication Instructions Recorded doxycycline hyclate 100 mg capsule 100 mg PO BID #20 caps 07/19/23 meclizine 25 mg tablet 25 mg PO TID PRN dizziness #15 tabs 10/08/23 nitrofurantoin macrocrystal 100 mg 100 mg PO BID 5 days #10 caps 10/08/23 capsule phenazopyridine 200 mg tablet 200 mg PO Q8H pain 2 days #6 tabs 12/12/23 (Pyridium) sulfamethoxazole 800 1 tab PO BID 5 days #10 tabs 12/12/23 mg-trimethoprim 160 mg tablet (Bactrim DS) Allergies Allergy/AdvReac Type Severity Reaction Status Date / Time bacitracin Allergy Verified 07/19/23 11:46 [From Neosporin ([id number])] gabapentin Allergy Verified 07/19/23 11:46 neomycin Allergy Verified 07/19/23 11:46 [From Neosporin ([id number])] polymyxin B Allergy Verified 07/19/23 11:46 [From Neosporin ([id number])] nitrofurantoin AdvReac Verified 12/12/23 18:08 [From Macrobid] Worker's Comp Is this a Worker's Comp case?: No [facility] Disclaimer: The information contained in this section may have been updated after the patient was seen, as this information can be updated by other users. Medical History Kidney stone Urinary tract infection Surgical History History of appendectomy History of section History of cholecystectomy History of hysterectomy Social History Smoking Status: Never smoker alcohol intake: never current occupational status: other Travel in the last 8 weeks: None household members: spouse housing: house ROS Obtained: Yes All systems reviewed & no additional complaints except as documented and Yes Systems reviewed as appropriate & no additional complaints except as documented Constitutional Constitutional: Reports system reviewed and no additional complaints, except as documented, Reports as per HPI, Denies body ache, Denies chills and Denies fever(s) ENT Ears, Nose, Mouth, and Throat: Reports system reviewed and no additional complaints, except as documented, Reports as per HPI and Reports otalgia Cardiovascular Cardiovascular: Reports system reviewed and no additional complaints, except as documented and Reports as per HPI Respiratory Respiratory: Reports system reviewed and no additional complaints, except as documented and Reports as per HPI Gastrointestinal Gastrointestingal: Reports system reviewed and no additional complaints, except as documented and as per HPI; Denies abdominal pain, nausea or vomiting Genitourinary Female Genitourinary: Reports system reviewed and no additional complaints, except as documented, Reports as per HPI, Reports dysuria, Reports flank pain, Reports urinary frequency and Reports urinary urgency Physical Exam General General appearance: alert and in no apparent distress ENT ENT exam: Present mucous membranes moist Expanded ENT Exam TM/Canal exam: Left TM: erythema (mild ) and bulging Throat exam: Present normal inspection Respiratory Respiratory exam: Present normal lung sounds bilaterally; Absent respiratory distress or wheezes Cardiovascular Cardiovascular exam: Present regular rate, normal rhythm and normal heart sounds Abdominal Exam Abdominal exam: Present soft and normal bowel sounds; Absent distention or tenderness Back Exam Back 1 view image: 1. reports achy like pain in kidney area on and off x 3 weeks Neurological Exam Neurological exam: Present alert, oriented X3 and normal gait Medical Decision Making Carl Inquiry Pt receiving controlled substance: No Carl was queried for this patient: No Vital Signs: 12/12/23 17:50 Temperature 98.1 F Temperature Source Oral Pulse Rate [Left Brachial] 86 Respiratory Rate 20 Blood Pressure [Left Arm] 186/60 H Blood Pressure Mean [Left Arm] 102 Blood Pressure Source [Left Arm] Automatic Cuff Blood Pressure Position [Left Arm] Sitting 02 Sat by Pulse Oximetry 98 Oxygen Delivery Method Room Air Lab Data Lab results reviewed: Yes I reviewed the patient's lab results. Medical Decision Narrative: Medication discussed with pharmacy and dosed per pharmacy Patient no allergy to bactrim
[2023-12-12 18:14] LABS: Apearance,Urine Cloudy (Clear); Bilirubin,Urine Negative (Negative); Blood, Urine Trace (Negative); Color,Urine Yellow (Yellow); Glucose,Urine (UA) Negative (Negative); Ketones,Urine Negative (Negative); PH,Urine 5.5 (5.0-8.5); Protein,Urine Negative (Negative); Specific Gravity, Urine >= 1.030 (1.005-1.030); UTC Leukocyte Esterase,Urine 1+ (Negative); UTC Nitrate,Urine Negative (Negative); Urobilinogen,Urine 0.2 EU/dl (0.2)
[2023-12-12 18:23] VITALS: BP 186/60; PULSE 86; RESP 20; TEMP 36.7; O2SAT 98
== END 2023-12-12 18:25 | disposition home or self-care (01) ==
PROVIDERS: Emergency Provider Nurse Practitioner; PCP Internal Medicine Adolescent Medicine
DX: N39.0 Urinary tract infection, site not specified (principal); R10.30 Lower abdominal pain, unspecified; M54.59 Other low back pain; H92.02 Otalgia, left ear
CPT/HCPCS: 81003; 99212; 99214; G0463

== ENCOUNTER 2024-01-27 10:18 | Emergency (ER) | payer MEDICARE, BC, SELFPAY ==
[2024-01-27 10:35] VITALS: BP 140/87; PULSE 89; RESP 19; TEMP 36.7; O2SAT 98; BMI 31.2
--- NOTE | 2024-01-27 10:55 | EXP.UTC ---
Discharge Plan Disposition Patient Disposition: Home, Self-Care Condition: Good Prescriptions Prescriptions: New azithromycin [Zithromax] 250 mg tablet 250 mg PO UD DOSE PK Qty: 6 0RF Rx Instructions: Take two (2) tablets today, then one (1) tablet days #2 thru #5 benzonatate 100 mg capsule 100 mg PO TIDP PRN (Reason: Cough) Qty: 30 0RF No Action fexofenadine [Michelle] 60 mg Tablet 60 mg PO DAILY Referrals Follow up/Referrals: Darius Joseph MD [Primary Care Provider] - See instructions Activity Restrictions/Add. Instructions Additional Instructions/Restrictions: Drink plenty of fluids. Take tylenol or ibuprofen for pain or fever. Take the medications as directed. Follow up with your regular doctor. GO TO THE ER FOR ANY WORSENING SYMPTOMS Clinical Impressions Clinical Impression: Sinusitis, Allergic rhinitis Instructions Patient Instructions: Sinusitis, DI for Sinusitis, Benzonatate, Azithromycin Discharge ED Provider: Ramez Chery [facility] General Stated complaint: runny nose, cough, sore throat Mode of Arrival: Ambulatory Source of Information: Patient Limitations: No Limitations Time Seen by Provider: 01/27/24 10:55 Description of Symptoms (Recalled from Triage Doc. by RN): PATIENT C/O SINUS DRAINAGE, SORE THROAT, AND CHEST CONGESTION HEENT Symptoms (Recalled from RN notes): Yes Resp Symptoms (Recalled from RN notes): No Skin Symptoms (Recalled from RN notes): No MS Symptoms (Recalled from RN notes): No Functional Status (Recalled from RN notes): WNL History of Present Illness Provider Complaint: She states that for the past 3 days she has had worsening sinus congestion, scratchy throat and a cough. She denies any fever/chills/body aches. Related Data Home Medications Medication Instructions Recorded Confirmed fexofenadine 60 mg tablet 60 mg PO DAILY allergies 07/19/23 01/27/24 Previous Rx's Medication Instructions Recorded azithromycin 250 mg tablet 250 mg PO UD DOSE PK #6 tabs 01/27/24 (Zithromax) benzonatate 100 mg capsule 100 mg PO TIDP PRN Cough #30 caps 01/27/24 Allergies Allergy/AdvReac Type Severity Reaction Status Date / Time bacitracin Allergy Verified 07/19/23 11:46 [From Neosporin ([id number])] gabapentin Allergy Verified 07/19/23 11:46 neomycin Allergy Verified 07/19/23 11:46 [From Neosporin ([id number])] polymyxin B Allergy Verified 07/19/23 11:46 [From Neosporin ([id number])] nitrofurantoin AdvReac Verified 12/12/23 18:08 [From Macrobid] Worker's Comp Is this a Worker's Comp case?: No [facility] Disclaimer: The information contained in this section may have been updated after the patient was seen, as this information can be updated by other users. Medical History Kidney stone Urinary tract infection Surgical History History of appendectomy History of section History of cholecystectomy History of hysterectomy Social History Smoking Status: Never smoker alcohol intake: never current occupational status: other Travel in the last 8 weeks: None household members: spouse housing: house ROS Obtained: Yes All systems reviewed & no additional complaints except as documented Constitutional Constitutional: Reports poor appetite Eyes Eyes: Reports system reviewed and no additional complaints, except as documented ENT Ears, Nose, Mouth, and Throat: Reports as per HPI Cardiovascular Cardiovascular: Reports system reviewed and no additional complaints, except as documented and Denies chest pain Respiratory Respiratory: Denies shortness of breath, Reports chest congestion, Reports cough, Denies stridor and Denies wheezing Gastrointestinal Gastrointestingal: Reports system reviewed and no additional complaints, except as documented; Denies abdominal pain, diarrhea or vomiting Musculoskeletal Musculoskeletal: Reports system reviewed and no additional complaints, except as documented and Denies arthralgias Integumentary/Breasts Skin/Breast: Reports system reviewed and no additional complaints, except as documented and Denies rash Neurologic Neurologic: Denies paresthesias Allergic/Immunologic Allergic/Immunologic: Denies wheezing Physical Exam General General appearance: alert and in no apparent distress Eye Eye exam: Present normal appearance, PERRL and EOMI ENT ENT exam: Present mucous membranes moist and normal external ear exam Expanded ENT Exam External ear exam: Present normal external inspection TM/Canal exam: Bilateral TM: erythema and bulging Nose exam: Absent sinus tenderness Nasal speculum exam: Bilateral: normal Mouth exam: Present normal external inspection; Absent drooling Teeth exam: Present normal inspection Throat exam: Present tonsillar erythema and tonsillomegaly Neck Neck exam: Present normal inspection, full ROM and trachea midline; Absent tenderness, lymphadenopathy or thyromegaly Chest Chest inspection: Present normal inspection and symmetric chest wall rise; Absent tenderness or rash Respiratory Respiratory exam: Present normal lung sounds bilaterally; Absent respiratory distress, wheezes, stridor or accessory muscle use Cardiovascular Cardiovascular exam: Present regular rate, normal rhythm and normal heart sounds Abdominal Exam Abdominal exam: Present soft; Absent distention, tenderness, guarding, rebound or rigidity Extremities Exam Extremities exam: Present normal inspection, full ROM and normal capillary refill; Absent tenderness or calf tenderness Back Exam Back exam: Present normal inspection and full ROM; Absent tenderness Neurological Exam Neurological exam: Present alert and oriented X3 Psychiatric Psychiatric exam: Present normal affect and normal mood Skin Skin exam: Present warm, dry, intact and normal color Lymphatic Lymphatic Findings: no adenopathy Medical Decision Making Medical Records Medical records reviewed: No I reviewed the patient's medical records. Carl Inquiry Pt receiving controlled substance: No Vital Signs: 01/27/24 10:35 Temperature 98.1 F Temperature Source Oral Pulse Rate [Left Brachial] 89 Respiratory Rate 19 Blood Pressure [Left Arm] 140/87 Blood Pressure Mean [Left Arm] 104 Blood Pressure Source [Left Arm] Automatic Cuff Blood Pressure Position [Left Arm] Sitting 02 Sat by Pulse Oximetry 98 Oxygen Delivery Method Room Air Lab Data Lab results reviewed: Yes I reviewed the patient's lab results.
[2024-01-27 10:59] VITALS: BP 140/87; PULSE 89; RESP 19; TEMP 36.7; O2SAT 98
[2024-01-27] MEDS: DEXAMETHASONE 4MG/ML 1ML VIAL 8 MG IM (11:15)
== END 2024-01-27 11:23 | disposition home or self-care (01) ==
PROVIDERS: Emergency Provider Nurse Practitioner Family; PCP Internal Medicine Adolescent Medicine
DX: J01.90 Acute sinusitis, unspecified (principal); R05.9 Cough, unspecified; R07.0 Pain in throat; R09.81 Nasal congestion
CPT/HCPCS: 96372; 99212; 99214; G0463

== ENCOUNTER 2024-08-04 14:35 | Emergency (ER) | payer MEDICARE, BC, SELFPAY ==
[2024-08-04 14:48] VITALS: BP 222/90; PULSE 100; RESP 20; TEMP 36.8; O2SAT 97; BMI 29.0
--- NOTE | 2024-08-04 14:54 | EXP.UTC ---
Discharge Plan Disposition Patient Disposition: Home, Self-Care Condition: Good Prescriptions Prescriptions: New diphenhydramine HCl 25 mg capsule 25 mg PO Q6HP PRN (Reason: Itching) Qty: 30 0RF methylprednisolone 4 mg Tablets,Dose Pack 4 mg PO DIRECTED 6 Days Qty: 21 0RF Rx Instructions: Take 1 pack as directed for 6 days No Action fexofenadine [Michelle] 60 mg Tablet 60 mg PO DAILY Referrals Follow up/Referrals: Darius Joseph MD [Primary Care Provider] - See instructions Activity Restrictions/Add. Instructions Additional Instructions/Restrictions: Try to identify and avoid contact with the offending substance. Don't start the oral steroids until tomorrow. The diphenhydramine (benedryl) will make you drowsy, so don't drive or operate heavy machinery after taking it. Follow up with your regular doctor. GO TO THE ER FOR ANY WORSENING SYMPTOMS OR CONCERNS Clinical Impressions Clinical Impression: Contact dermatitis Instructions Patient Instructions: DI for Contact Dermatitis Print Language Print Language: Indonesian Discharge ED Provider: Ramez Chery [facility] General Stated complaint: swollen eye lids Mode of Arrival: Ambulatory Source of Information: Patient Time Seen by Provider: 08/04/24 14:54 Description of Symptoms (Recalled from Triage Doc. by RN): SWOLLEN EYELIDS, ITCHING, BURNING, WAS AROUND POISION [place] HEENT Symptoms (Recalled from RN notes): Yes Resp Symptoms (Recalled from RN notes): No Skin Symptoms (Recalled from RN notes): No MS Symptoms (Recalled from RN notes): No Functional Status (Recalled from RN notes): WNL Related Data Home Medications ?Medication ?Instructions ?Recorded ?Confirmed fexofenadine 60 mg tablet 60 mg PO DAILY allergies 07/19/23 08/04/24 Previous Rx's ?Medication ?Instructions ?Recorded diphenhydramine HCl 25 mg capsule 25 mg PO Q6HP PRN Itching #30 caps 08/04/24 methylprednisolone 4 mg tablets in 4 mg PO DIRECTED 6 days #21 tabs 08/04/24 a dose pack Allergies Allergy/AdvReac Type Severity Reaction Status Date / Time bacitracin Allergy Verified 07/19/23 11:46 [From Neosporin ([id number])] gabapentin Allergy Verified 07/19/23 11:46 neomycin Allergy Verified 07/19/23 11:46 [From Neosporin ([id number])] polymyxin B Allergy Verified 07/19/23 11:46 [From Neosporin ([id number])] nitrofurantoin AdvReac Verified 12/12/23 18:08 [From Macrobid] Worker's Comp Is this a Worker's Comp case?: No [facility] Disclaimer: The information contained in this section may have been updated after the patient was seen, as this information can be updated by other users. Medical History Kidney stone Urinary tract infection Surgical History History of appendectomy History of section History of cholecystectomy History of hysterectomy Social History Smoking Status: Never smoker alcohol intake: never current occupational status: other Travel in the last 8 weeks: None household members: spouse housing: house ROS Obtained: Yes All systems reviewed & no additional complaints except as documented Constitutional Constitutional: Denies chills and Denies fever(s) Eyes Eyes: Denies eye discharge ENT Ears, Nose, Mouth, and Throat: Denies dizziness, Denies otalgia and Denies sore throat Cardiovascular Cardiovascular: Denies chest pain Respiratory Respiratory: Denies shortness of breath, Denies chest congestion, Denies cough, Denies stridor and Denies wheezing Gastrointestinal Gastrointestingal: Denies nausea or vomiting Musculoskeletal Musculoskeletal: Reports system reviewed and no additional complaints, except as documented and Denies arthralgias Integumentary/Breasts Skin/Breast: Reports as per HPI and Reports rash Neurologic Neurologic: Denies dizziness and Denies paresthesias Allergic/Immunologic Allergic/Immunologic: Denies wheezing Physical Exam General General appearance: alert and in no apparent distress Head Head exam: atraumatic, normocephalic and normal inspection Eye Eye exam: Present normal appearance, PERRL and EOMI ENT ENT exam: Present normal exam, normal oropharynx, mucous membranes moist, TM's normal bilaterally and normal external ear exam Neck Neck exam: Present normal inspection, full ROM and trachea midline; Absent meningismus or lymphadenopathy Chest Chest inspection: Present normal inspection and symmetric chest wall rise; Absent tenderness Respiratory Respiratory exam: Present normal lung sounds bilaterally; Absent respiratory distress Cardiovascular Cardiovascular exam: Present regular rate and normal rhythm; Absent JVD Abdominal Exam Abdominal exam: Present soft and normal bowel sounds; Absent distention, tenderness or guarding Extremities Exam Extremities exam: Present normal inspection, full ROM and normal capillary refill; Absent calf tenderness Back Exam Back exam: Present normal inspection; Absent tenderness Neurological Exam Neurological exam: Present alert and oriented X3 Psychiatric Psychiatric exam: Present normal affect and normal mood Skin Skin exam: Present rash Lymphatic Lymphatic Findings: no adenopathy Medical Decision Making Medical Records Medical records reviewed: No I reviewed the patient's medical records. Screening: Per USPSTF and CDC recommendations, given the prevalence of disease in our region, it is our hospital?s policy to screen for HIV and viral Hepatitis for all patients aged 18 and over and those with ongoing risk factors. Carl Inquiry Pt receiving controlled substance: No Vital Signs: 08/04/24 14:48 Temperature 98.2 F Temperature Source Oral Pulse Rate [Left Radial] 100 H Respiratory Rate 20 Blood Pressure [Left Arm] 222/90 H Blood Pressure Mean [Left Arm] 134 02 Sat by Pulse Oximetry 97
[2024-08-04] MEDS: DEXAMETHASONE 4MG/ML 1ML VIAL 8 MG IM (15:26)
[2024-08-04 15:56] VITALS: BP 142/82; PULSE 100; RESP 20; TEMP 36.8
== END 2024-08-04 15:56 | disposition home or self-care (01) ==
PROVIDERS: Emergency Provider Nurse Practitioner Family; PCP Internal Medicine Adolescent Medicine
DX: L25.9 Unspecified contact dermatitis, unspecified cause (principal)
CPT/HCPCS: 96372; 99213; G0381; J1100

== ENCOUNTER 2024-08-10 14:03 | Emergency (ER) | payer MEDICARE, BC, SELFPAY ==
[2024-08-10 14:04] VITALS: BP 196/91; PULSE 97; RESP 20; TEMP 37.1; O2SAT 97; BMI 28.2
[2024-08-10 14:16] VITALS: BP 162/82; PULSE 93; O2SAT 98
--- NOTE | 2024-08-10 14:20 | ED_ITS ---
Discharge Plan Disposition Patient Disposition: Home, Self-Care Condition: Good Prescriptions Prescriptions: New pantoprazole [Protonix] 20 mg tablet,delayed release (DR/EC) 20 mg PO DAILY 28 Days Qty: 28 0RF No Action fexofenadine [Michelle] 60 mg Tablet 60 mg PO DAILY diphenhydramine HCl 25 mg capsule 25 mg PO Q6HP PRN (Reason: Itching) Qty: 30 0RF methylprednisolone 4 mg Tablets,Dose Pack 4 mg PO DIRECTED 6 Days Qty: 21 0RF Rx Instructions: Take 1 pack as directed for 6 days Referrals Follow up/Referrals: Darius Joseph MD [Primary Care Provider] - See instructions Activity Restrictions/Add. Instructions Additional Instructions/Restrictions: Follow-up with PCP for blood pressure control. Monitor blood pressure at home to follow-up with your PCP. Increase fluids and rest. May take Tylenol if you have a headache. Return to the emergency department if needed Clinical Impressions Clinical Impression: Viral illness, Acid reflux disease Instructions Patient Instructions: DI for Acute Abdominal Pain Print Language Print Language: [place] Discharge ED Provider: Yayo Dickson General Adult HPI <Malaika Rivera, - Last Filed: 08/10/24 15:12> General Chief complaint: Abdominal Pain Stated complaint: reaction to steriod shot and pill Time Seen by Provider: 08/10/24 14:06 Related Data Home Medications ?Medication ?Instructions ?Recorded ?Confirmed fexofenadine 60 mg tablet 60 mg PO DAILY allergies 07/19/23 08/04/24 Previous Rx's ?Medication ?Instructions ?Recorded diphenhydramine HCl 25 mg capsule 25 mg PO Q6HP PRN Itching #30 caps 08/04/24 methylprednisolone 4 mg tablets in 4 mg PO DIRECTED 6 days #21 tabs 08/04/24 a dose pack pantoprazole 20 mg tablet,delayed 20 mg PO DAILY 4 weeks #28 tabs 08/10/24 release (Protonix) Allergies Allergy/AdvReac Type Severity Reaction Status Date / Time bacitracin Allergy Verified 07/19/23 11:46 [From Neosporin ([id number])] gabapentin Allergy Verified 07/19/23 11:46 neomycin Allergy Verified 07/19/23 11:46 [From Neosporin ([id number])] polymyxin B Allergy Verified 07/19/23 11:46 [From Neosporin ([id number])] nitrofurantoin AdvReac Verified 12/12/23 18:08 [From Macrobid] <Sirena Mckeon (SHAHEED)SHERLYN - Last Filed: 08/10/24 15:19> General Mode of Arrival: Ambulatory Source of Information: Patient Limitations: No Limitations Description of Symptoms (Recalled from ER Triage Doc. by RN): Patient presents to ED with abdominal pain/cramping, nausea, and dirrahea. Patient reports she started a steriod dose pack on Monday for a reaction to posion oak. Patient states she thinks the steriods are causing her abdominal pain. History of Present Illness HPI narrative: This is a 74-year-old female who presents to the ED today for nausea, epigastric tenderness, diarrhea that is green and a headache for the past 2 days. States that she went to the urgent treatment center and received a shot of steroids and a Methylpred pack. She says that she has been taking the steroids for the past 3 days. She has been having nausea but no vomiting and green diarrhea for 2 days. She noticed that her head was hurting as well. States that she believes this is a reaction to her steroids. She said she did have sinusitis a couple to 3 weeks back and had a Z-Michael and a steroid shot then as well. She thinks that this was too close together with the steroids and that has made her feel terrible. She says her blood pressure has been elevated at home. Patient does not take any blood pressure medicine. Her doctor is Dr. Mariano. She denies any chest pain or shortness of breath. Her initial blood pressure here was also elevated at 222 systolic. Her repeat was 142/82. PFSH <Malaika Rivera DO - Last Filed: 08/10/24 15:12> [facility] Medical History Kidney stone Urinary tract infection Surgical History History of appendectomy History of section History of cholecystectomy History of hysterectomy Social History Smoking Status: Never smoker alcohol intake: never current occupational status: other Travel in the last 8 weeks: None household members: spouse housing: house <Sirena Mckeon (ED), [employer] - Last Filed: 08/10/24 15:19> [facility] Disclaimer: The information contained in this section may have been updated after the patient was seen, as this information can be updated by other users. Other Medical History Have you received the Flu Vaccine for this season: No Have you received the Pneumonia Vaccine: No <Sirena Sonicholewilliam (ED), [employer] - Last Filed: 08/10/24 15:19> ROS Obtained: Yes Systems reviewed as appropriate & no additional complaints except as documented Constitutional Constitutional: Reports as per HPI Physical Exam <Sirena Mckeon (ED), [employer] - Last Filed: 08/10/24 15:19> General General appearance: alert Comment: Patient alert and oriented, appears to be feeling unwell, complaining of epigastric pain and nausea at this time Head Head exam: atraumatic and normocephalic Eye Eye exam: Present normal appearance, PERRL and EOMI ENT ENT exam: Present normal exam, normal oropharynx and mucous membranes moist Neck Neck exam: Present normal inspection, full ROM and trachea midline Respiratory Respiratory exam: Present normal lung sounds bilaterally Cardiovascular Cardiovascular exam: Present regular rate, normal rhythm, normal heart sounds, +S1 and +S2 Abdominal Exam Abdominal exam: Present soft, tenderness (At epigastric area no tenderness in her lower abdomen or in right upper or left upper quadrants) and normal bowel sounds Extremities Exam Extremities exam: Present normal inspection and full ROM Neurological Exam Neurological exam: Present alert, oriented X3 and normal gait Psychiatric Psychiatric exam: Present normal affect Skin Skin exam: Present warm, dry and intact Medical Decision Making <Malaika Rivera DO - Last Filed: 08/10/24 15:12> Vital Signs: 08/10/24 14:04 08/10/24 14:16 08/10/24 14:30 Temperature 98.7 F Temperature Source Oral Pulse Rate 93 H 94 H Pulse Rate [Right Brachial] 97 H Respiratory Rate 20 Blood Pressure 162/82 H 135/91 H Blood Pressure [Right Arm] 196/91 H Blood Pressure Mean Blood Pressure Mean [Right Arm] 126 Blood Pressure Source Blood Pressure Source [Right Arm] Automatic Cuff Blood Pressure Position Blood Pressure Position [Right Arm] Supine 02 Sat by Pulse Oximetry 97 98 97 Oxygen Delivery Method Room Air 08/10/24 15:02 08/10/24 15:23 Temperature 98.7 F Temperature Source Oral Pulse Rate 85 83 Pulse Rate [Right Brachial] Respiratory Rate 18 Blood Pressure 146/76 H 146/76 H Blood Pressure [Right Arm] Blood Pressure Mean 99 Blood Pressure Mean [Right Arm] Blood Pressure Source Automatic Cuff Blood Pressure Source [Right Arm] Blood Pressure Position Supine Blood Pressure Position [Right Arm] 02 Sat by Pulse Oximetry 97 Oxygen Delivery Method Room Air Lab Data Lab Results 08/10/24 14:13: WBC 12.8 H, RBC 5.89 H, Hgb 16.7 H, Hct 50.7 H, MCV 86.1, MCH 28.4, MCHC 33.0, RDW 14.8, Plt Count 299, MPV 7.3 L, Neut % (Auto) 71.6, Lymph % (Auto) 21.0, Dickinson % (Auto) 5.7, Eos % (Auto) 0.8, Baso % (Auto) 0.8, Neut # (Auto) 9.2 H, Lymph # (Auto) 2.7, Dickinson # (Auto) 0.7, Eos # (Auto) 0.1, Baso # (Auto) 0.1, Sodium 136, Potassium 3.8, Chloride 103, Carbon Dioxide 27, Anion Gap 9.8, BUN 18 H, Creatinine 0.90, Estimated Creat Clear 61, Estimated GFR 61, Est GFR ( Amer) 74, Glucose 141 H, Calcium 9.4, Total Bilirubin 1.0, AST 26, ALT 25, Alkaline Phosphatase 83, Troponin I < 0.01, Total Protein 7.5, Albumin 4.3, Globulin 3.2, Albumin/Globulin Ratio 1.3, Lipase 72, HIV 1&2 Antibody Rapid Nonreactive 08/10/24 14:26: Chlamy pneumoniae PCR Not detected, Adenovirus (PCR) Not detected, B. pertussis DNA (PCR) Not detected, Coronavirus OC43 (PCR) Not detected, Coronavirus HKU1 (PCR) Not detected, Coronavirus 229E (PCR) Not detected, SARS-CoV-2 (PCR) Not detected, Coronavirus NL63 (PCR) Not detected, Human Metapneumovir PCR Not detected, Influenza A (H1) PCR Not detected, Influ A (H1N1/09) PCR Not detected, Influenza A (H3) PCR Not detected, Influenza Type A (PCR) Not detected, Influenza Type B (PCR) Not detected, M. pneumoniae (PCR) Not detected, Parainfluenza 1 (PCR) Not detected, Parainfluenza 2 (PCR) Not detected, Parainfluenza 3 (PCR) Not detected, Parainfluenza 4 (PCR) Not detected, RSV (PCR) Not detected, Entero/Rhino (PCR) Not detected 08/10/24 14:58: Urine Color Yellow, Urine Appearance Clear, Urine pH 5.5, Ur Specific [place] >= 1.030, Urine Protein 1+ A, Urine Glucose (UA) Negative, Urine Ketones Trace, Urine Blood Trace-i, Urine Nitrate Negative, Urine Bilirubin 2+ A, Urine Urobilinogen 1.0, Ur Leukocyte Esterase Trace, Urine RBC 3-5, Urine WBC 20-50, Ur Squamous Epith Cells 3-5, Urine Bacteria 2+ 08/10/24 14:13 08/10/24 14:13 Orders (Tests/Meds): ED MEDICATIONS Discontinued Medications Generic Name Dose Route Start Last Admin Trade Name Freq PRN Reason Stop Dose Admin Acetaminophen 1,000 mg 08/10/24 14:19 08/10/24 14:23 Acetaminophen 500mg Tab PO 08/10/24 14:20 1,000 mg ONCE ONE Administration Ondansetron HCl 4 mg 08/10/24 14:15 08/10/24 14:22 Ondansetron 4mg/2ml Vial IV 08/10/24 14:16 4 mg ONCE ONE Administration Pantoprazole Sodium 40 mg 08/10/24 14:15 08/10/24 14:22 Pantoprazole 40mg Vial IV 08/10/24 14:16 40 mg ONCE ONE Administration Sodium Chloride 10 ml 08/10/24 14:15 08/10/24 14:22 Sodium Chloride 0.9% 10ml Vial IV 09/09/24 14:14 10 ml NEEDED PRN Administration dilute protonix ORDERS Category Date Time Status Complete Blood Count Auto Diff Stat Lab 08/10/24 14:13 Completed Comprehensive Metabolic Panel Stat Lab 08/10/24 14:13 Completed Full Resp Panel w/COVID ([facility]) Routine Lab 08/10/24 14:26 Completed HIV (1&2) Antibody Rapid Stat Lab 08/10/24 14:13 Completed Hep C Ab with Reflex to RNA Stat Lab 08/10/24 14:13 Received Lipase Stat Lab 08/10/24 14:13 Completed Trop I [Troponin I] Stat Lab 08/10/24 14:13 Completed UA [Urinalysis and Microscopic] Stat Lab 08/10/24 14:58 Completed Urine Culture Stat Micro 08/10/24 14:58 Received ECG Data Tracing #1: I reviewed this ECG and interpreted as documented below: Normal sinus rhythm with a ventricular rate of [address] changes concerning for ischemia. Normal axis and intervals. ECG initial impression date: 08/10/24 ECG initial impression time: 14:27 <Sirena Mckeon (ED), [employer] - Last Filed: 08/10/24 15:19> Medical Records Screening: Per USPSTF and CDC recommendations, given the prevalence of disease in our region, it is our hospital?s policy to screen for HIV and viral Hepatitis for all patients aged 18 and over and those with ongoing risk factors. Carl Inquiry Pt receiving controlled substance: No Carl was queried for this patient: No Vital Signs: 08/10/24 14:04 08/10/24 14:16 08/10/24 14:30 Temperature 98.7 F Temperature Source Oral Pulse Rate 93 H 94 H Pulse Rate [Right Brachial] 97 H Respiratory Rate 20 Blood Pressure 162/82 H 135/91 H Blood Pressure [Right Arm] 196/91 H Blood Pressure Mean Blood Pressure Mean [Right Arm] 126 Blood Pressure Source Blood Pressure Source [Right Arm] Automatic Cuff Blood Pressure Position Blood Pressure Position [Right Arm] Supine 02 Sat by Pulse Oximetry 97 98 97 Oxygen Delivery Method Room Air 08/10/24 15:02 08/10/24 15:23 Temperature 98.7 F Temperature Source Oral Pulse Rate 85 83 Pulse Rate [Right Brachial] Respiratory Rate 18 Blood Pressure 146/76 H 146/76 H Blood Pressure [Right Arm] Blood Pressure Mean 99 Blood Pressure Mean [Right Arm] Blood Pressure Source Automatic Cuff Blood Pressure Source [Right Arm] Blood Pressure Position Supine Blood Pressure Position [Right Arm] 02 Sat by Pulse Oximetry 97 Oxygen Delivery Method Room Air Lab Data Lab Results 08/10/24 14:13: WBC 12.8 H, RBC 5.89 H, Hgb 16.7 H, Hct 50.7 H, MCV 86.1, MCH 28.4, MCHC 33.0, RDW 14.8, Plt Count 299, MPV 7.3 L, Neut % (Auto) 71.6, Lymph % (Auto) 21.0, Dickinson % (Auto) 5.7, Eos % (Auto) 0.8, Baso % (Auto) 0.8, Neut # (Auto) 9.2 H, Lymph # (Auto) 2.7, Dickinson # (Auto) 0.7, Eos # (Auto) 0.1, Baso # (Auto) 0.1, Sodium 136, Potassium 3.8, Chloride 103, Carbon Dioxide 27, Anion Gap 9.8, BUN 18 H, Creatinine 0.90, Estimated Creat Clear 61, Estimated GFR 61, Est GFR ( Amer) 74, Glucose 141 H, Calcium 9.4, Total Bilirubin 1.0, AST 26, ALT 25, Alkaline Phosphatase 83, Troponin I < 0.01, Total Protein 7.5, Albumin 4.3, Globulin 3.2, Albumin/Globulin Ratio 1.3, Lipase 72, HIV 1&2 Antibody Rapid Nonreactive 08/10/24 14:26: Chlamy pneumoniae PCR Not detected, Adenovirus (PCR) Not detected, B. pertussis DNA (PCR) Not detected, Coronavirus OC43 (PCR) Not detected, Coronavirus HKU1 (PCR) Not detected, Coronavirus 229E (PCR) Not detected, SARS-CoV-2 (PCR) Not detected, Coronavirus NL63 (PCR) Not detected, Human Metapneumovir PCR Not detected, Influenza A (H1) PCR Not detected, Influ A (H1N1/09) PCR Not detected, Influenza A (H3) PCR Not detected, Influenza Type A (PCR) Not detected, Influenza Type B (PCR) Not detected, M. pneumoniae (PCR) Not detected, Parainfluenza 1 (PCR) Not detected, Parainfluenza 2 (PCR) Not detected, Parainfluenza 3 (PCR) Not detected, Parainfluenza 4 (PCR) Not detected, RSV (PCR) Not detected, Entero/Rhino (PCR) Not detected 08/10/24 14:58: Urine Color Yellow, Urine Appearance Clear, Urine pH 5.5, Ur Specific [place] >= 1.030, Urine Protein 1+ A, Urine Glucose (UA) Negative, Urine Ketones Trace, Urine Blood Trace-i, Urine Nitrate Negative, Urine Bilirubin 2+ A, Urine Urobilinogen 1.0, Ur Leukocyte Esterase Trace, Urine RBC 3-5, Urine WBC 20-50, Ur Squamous Epith Cells 3-5, Urine Bacteria 2+ Orders (Tests/Meds): ED MEDICATIONS Discontinued Medications Generic Name Dose Route Start Last Admin Trade Name Freq PRN Reason Stop Dose Admin Acetaminophen 1,000 mg 08/10/24 14:19 08/10/24 14:23 Acetaminophen 500mg Tab PO 08/10/24 14:20 1,000 mg ONCE ONE Administration Ondansetron HCl 4 mg 08/10/24 14:15 08/10/24 14:22 Ondansetron 4mg/2ml Vial IV 08/10/24 14:16 4 mg ONCE ONE Administration Pantoprazole Sodium 40 mg 08/10/24 14:15 08/10/24 14:22 Pantoprazole 40mg Vial IV 08/10/24 14:16 40 mg ONCE ONE Administration Sodium Chloride 10 ml 08/10/24 14:15 08/10/24 14:22 Sodium Chloride 0.9% 10ml Vial IV 09/09/24 14:14 10 ml NEEDED PRN Administration dilute protonix ORDERS Category Date Time Status Complete Blood Count Auto Diff Stat Lab 08/10/24 14:13 Completed Comprehensive Metabolic Panel Stat Lab 08/10/24 14:13 Completed Full Resp Panel w/COVID ([facility]) Routine Lab 08/10/24 14:26 Completed HIV (1&2) Antibody Rapid Stat Lab 08/10/24 14:13 Completed Hep C Ab with Reflex to RNA Stat Lab 08/10/24 14:13 Received Lipase Stat Lab 08/10/24 14:13 Completed Trop I [Troponin I] Stat Lab 08/10/24 14:13 Completed UA [Urinalysis and Microscopic] Stat Lab 08/10/24 14:58 Completed Urine Culture Stat Micro 08/10/24 14:58 Received Medical Decision Narrative: Insert review patient is a 74-year-old female presenting to the emergency department for evaluation of epigastric pain, nausea, diarrhea. Patient is hemodynamically stable, BP initially 222 systolic, recheck was 142/82 while I was in the room and nontoxic-appearing upon arrival, afebrile. Differential diagnosis includes viral illness, stomach virus, reaction to steroids, reflux, hypertension among others. Workup will be conducted with EKG, labs including CBC CMP, lipase, respiratory panel. Initial inventions include Tylenol for headache, Protonix, GI cocktail. Initial workup reviewed by me and patient's white count was 12.8 which is expected as she has been on steroids and she has had diarrhea. Upon repeat evaluation patient's pain is improved, appears better. Patient has improved blood pressure at 135/91. She says her pain is much improved. She is at bedside drinking Sprite. She is asking when she can eat. Patient will be discharged home. She was told to follow-up with Dr. Mariano for her blood pressure. <Yayo Dickson MD - Last Filed: 08/10/24 17:30> Vital Signs: 08/10/24 14:04 08/10/24 14:16 08/10/24 14:30 Temperature 98.7 F Temperature Source Oral Pulse Rate 93 H 94 H Pulse Rate [Right Brachial] 97 H Respiratory Rate 20 Blood Pressure 162/82 H 135/91 H Blood Pressure [Right Arm] 196/91 H Blood Pressure Mean Blood Pressure Mean [Right Arm] 126 Blood Pressure Source Blood Pressure Source [Right Arm] Automatic Cuff Blood Pressure Position Blood Pressure Position [Right Arm] Supine 02 Sat by Pulse Oximetry 97 98 97 Oxygen Delivery Method Room Air 08/10/24 15:02 08/10/24 15:23 Temperature 98.7 F Temperature Source Oral Pulse Rate 85 83 Pulse Rate [Right Brachial] Respiratory Rate 18 Blood Pressure 146/76 H 146/76 H Blood Pressure [Right Arm] Blood Pressure Mean 99 Blood Pressure Mean [Right Arm] Blood Pressure Source Automatic Cuff Blood Pressure Source [Right Arm] Blood Pressure Position Supine Blood Pressure Position [Right Arm] 02 Sat by Pulse Oximetry 97 Oxygen Delivery Method Room Air Lab Data Lab Results 08/10/24 14:13: WBC 12.8 H, RBC 5.89 H, Hgb 16.7 H, Hct 50.7 H, MCV 86.1, MCH 28.4, MCHC 33.0, RDW 14.8, Plt Count 299, MPV 7.3 L, Neut % (Auto) 71.6, Lymph % (Auto) 21.0, Dickinson % (Auto) 5.7, Eos % (Auto) 0.8, Baso % (Auto) 0.8, Neut # (Auto) 9.2 H, Lymph # (Auto) 2.7, Dickinson # (Auto) 0.7, Eos # (Auto) 0.1, Baso # (Auto) 0.1, Sodium 136, Potassium 3.8, Chloride 103, Carbon Dioxide 27, Anion Gap 9.8, BUN 18 H, Creatinine 0.90, Estimated Creat Clear 61, Estimated GFR 61, Est GFR ( Amer) 74, Glucose 141 H, Calcium 9.4, Total Bilirubin 1.0, AST 26, ALT 25, Alkaline Phosphatase 83, Troponin I < 0.01, Total Protein 7.5, Albumin 4.3, Globulin 3.2, Albumin/Globulin Ratio 1.3, Lipase 72, HIV 1&2 Antibody Rapid Nonreactive 08/10/24 14:26: Chlamy pneumoniae PCR Not detected, Adenovirus (PCR) Not detected, B. pertussis DNA (PCR) Not detected, Coronavirus OC43 (PCR) Not detected, Coronavirus HKU1 (PCR) Not detected, Coronavirus 229E (PCR) Not detected, SARS-CoV-2 (PCR) Not detected, Coronavirus NL63 (PCR) Not detected, Human Metapneumovir PCR Not detected, Influenza A (H1) PCR Not detected, Influ A (H1N1/09) PCR Not detected, Influenza A (H3) PCR Not detected, Influenza Type A (PCR) Not detected, Influenza Type B (PCR) Not detected, M. pneumoniae (PCR) Not detected, Parainfluenza 1 (PCR) Not detected, Parainfluenza 2 (PCR) Not detected, Parainfluenza 3 (PCR) Not detected, Parainfluenza 4 (PCR) Not detected, RSV (PCR) Not detected, Entero/Rhino (PCR) Not detected 08/10/24 14:58: Urine Color Yellow, Urine Appearance Clear, Urine pH 5.5, Ur Specific [place] >= 1.030, Urine Protein 1+ A, Urine Glucose (UA) Negative, Urine Ketones Trace, Urine Blood Trace-i, Urine Nitrate Negative, Urine Bilirubin 2+ A, Urine Urobilinogen 1.0, Ur Leukocyte Esterase Trace, Urine RBC 3-5, Urine WBC 20-50, Ur Squamous Epith Cells 3-5, Urine Bacteria 2+ Orders (Tests/Meds): ED MEDICATIONS Discontinued Medications Generic Name Dose Route Start Last Admin Trade Name Freq PRN Reason Stop Dose Admin Acetaminophen 1,000 mg 08/10/24 14:19 08/10/24 14:23 Acetaminophen 500mg Tab PO 08/10/24 14:20 1,000 mg ONCE ONE Administration Ondansetron HCl 4 mg 08/10/24 14:15 08/10/24 14:22 Ondansetron 4mg/2ml Vial IV 08/10/24 14:16 4 mg ONCE ONE Administration Pantoprazole Sodium 40 mg 08/10/24 14:15 08/10/24 14:22 Pantoprazole 40mg Vial IV 08/10/24 14:16 40 mg ONCE ONE Administration Sodium Chloride 10 ml 08/10/24 14:15 08/10/24 14:22 Sodium Chloride 0.9% 10ml Vial IV 09/09/24 14:14 10 ml NEEDED PRN Administration dilute protonix ORDERS Category Date Time Status Complete Blood Count Auto Diff Stat Lab 08/10/24 14:13 Completed Comprehensive Metabolic Panel Stat Lab 08/10/24 14:13 Completed Full Resp Panel w/COVID ([facility]) Routine Lab 08/10/24 14:26 Completed HIV (1&2) Antibody Rapid Stat Lab 08/10/24 14:13 Completed Hep C Ab with Reflex to RNA Stat Lab 08/10/24 14:13 Received Lipase Stat Lab 08/10/24 14:13 Completed Trop I [Troponin I] Stat Lab 08/10/24 14:13 Completed UA [Urinalysis and Microscopic] Stat Lab 08/10/24 14:58 Completed Urine Culture Stat Micro 08/10/24 14:58 Received Medical Decision Narrative: Insert review patient is a 74-year-old female presenting to the emergency department for evaluation of epigastric pain, nausea, diarrhea. Patient is hemodynamically stable, BP initially 222 systolic, recheck was 142/82 while I was in the room and nontoxic-appearing upon arrival, afebrile. Differential diagnosis includes viral illness, stomach virus, reaction to steroids, reflux, hypertension among others. Workup will be conducted with EKG, labs including CBC CMP, lipase, respiratory panel. Initial inventions include Tylenol for headache, Protonix, GI cocktail. Initial workup reviewed by me and patient's white count was 12.8 which is expected as she has been on steroids and she has had diarrhea. Upon repeat evaluation patient's pain is improved, appears better. Patient has improved blood pressure at 135/91. She says her pain is much improved. She is at bedside drinking Sprite. She is asking when she can eat. Patient will be discharged home. She was told to follow-up with Dr. Mariano for her blood pressure. I was consulted by the BERNARD, and we discussed the complexity of the problems being addressed. I approved the treatment and management plan for this patient's care in the Emergency Department, thus performing a substantive portion of the medical decision making. Yayo Dickson MD Critical Care <Sirena Mckeon (ED), [employer] - Last Filed: 08/10/24 15:19> Critical Care Time Critical Care Time: No
[2024-08-10] MEDS: PANTOPRAZOLE 40MG VIAL 40 MG IV (14:22)
[2024-08-10] MEDS: SODIUM CHLORIDE 0.9% 10ML VIAL 10 ML IV (14:22)
[2024-08-10] MEDS: ONDANSETRON 4MG/2ML VIAL 4 MG IV (14:22)
[2024-08-10] MEDS: ACETAMINOPHEN 500MG TAB 1000 MG PO (14:23)
[2024-08-10 14:24] LABS: Basophils # 0.1 K/mm3 (0-0.2); Basophils % 0.8 % (0.1-2.0); Eosinophils # 0.1 K/mm3 (0.0-0.4); Eosinophils % 0.8 % (0.1-12.0); Hematocrit 50.7 % (37.0-47.0); Hemoglobin 16.7 g/dL (12.2-16.2); Lymphocytes # 2.7 K/mm3 (0.7-4.5); Mean Corpuscular Hemoglobin 28.4 pg (27.0-31.2); Mean Corpuscular Volume 86.1 fl (81-99); Mean Platelet Volume 7.3 fl (7.4-10.4); Monocytes # 0.7 K/mm3 (0.1-1.0); Monocytes % 5.7 % (1.7-9.3); Neutrophils # 9.2 K/mm3 (1.8-7.8); Neutrophils % 71.6 % (37.0-80.0); Platelet Count 299 K/mm3 (142-424); Red Blood Count 5.89 M/mm3 (4.20-5.40); Red Cell Distribution Width 14.8 % (11.5-17.5); White Blood Count 12.8 K/mm3 (4.8-10.8)
--- NOTE | 2024-08-10 14:25 | ECG_ITS ---
APPROVED REPORT Exam: Resting ECG HR:89 bpm ECG Measurements Heart Rate 89 AXES WA 141 P 62 QRSd 90 QRS 46 QT 385 T 70 QTc 432 Conclusion SINUS RHYTHM NORMAL ECG Electronically signed by : JEANNIE CHAUDHARY, 08/11/2024 13:15:59
[2024-08-10 14:27] LABS: Chloride 103 mmol/L (98-107); Potassium 3.8 mmoL/L (3.5-5.1); Sodium 136 mmol/L (136-145)
[2024-08-10 14:29] LABS: Blood Urea Nitrogen 18 mg/dl (7-17); Creatinine Clearance Estimated 61 mL/min (50-200); Estimated Glomerular Filt Rate 61 ml/min (>60); GFR (African American) 74 ML/MIN (>60)
[2024-08-10 14:30] VITALS: BP 135/91; PULSE 94; O2SAT 97
[2024-08-10 14:30] LABS: Alanine Aminotransferase 25 U/L (12-78); Alkaline Phosphatase 83 U/L (38-126); Anion Gap 9.8 mEq/L (5-15); Aspartate Amino Transferase 26 U/L (14-36); Calcium 9.4 mg/dl (8.4-10.2); Carbon Dioxide 27 mmol/L (22.0-30.0); Glucose 141 mg/dl (74-100); Lipase 72 U/L (23-300); Total Protein,Serum 7.5 g/dl (6.3-8.2)
[2024-08-10 14:31] LABS: Adenovirus,PCR Not Detected (NotDetected); Bordetella Pertussis Not Detected (NotDetected); Chlamydophila Pneumoniae, PCR Not Detected (NotDetected); Coronavirus 19, PCR Not Detected (NotDetected); Coronavirus 229E Not Detected (NotDetected); Coronavirus NL63 Not Detected (NotDetected); Coronavirus OC43 Not Detected (NotDetected); Coronovirus HKU1,PCR Not Detected (NotDetected); Human Metapneumovirus Not Detected (NotDetected); Influenza A, PCR Not Detected (NotDetected); Influenza AH1, 2009 Not Detected (NotDetected); Influenza AH1, PCR Not Detected (NotDetected); Influenza AH3,PCR Not Detected (NotDetected); Influenza B, PCR Not Detected (NotDetected); Mycoplasma Pneumoniae, PCR Not Detected (NotDetected); Parainfluenza 1, PCR Not Detected (NotDetected); Parainfluenza 2, PCR Not Detected (NotDetected); Parainfluenza 3, PCR Not Detected (NotDetected); Parainfluenza 4, PCR Not Detected (NotDetected); Respiratory Syncytial Virus Not Detected (NotDetected); Rhinovirus/Enterovirus Not Detected (NotDetected)
[2024-08-10 14:48] LABS: Troponin I < 0.01 ng/ml (0.00-0.034)
[2024-08-10 15:02] VITALS: BP 146/76; PULSE 85; O2SAT 97
[2024-08-10 15:05] LABS: HIV (1&2) Antibody Rapid NONREACTIVE (NONREACTIVE)
[2024-08-10 15:05] LABS: Microscopic, Urine URINE MICROSCOPIC (MICROSCOPIC)
[2024-08-10 15:11] LABS: Albumin Level 4.3 g/dl (3.5-5.0); Albumin/Globulin Ratio 1.3 (1.1-1.8); Globulin 3.2 g/dL (1.3-3.2)
[2024-08-10 15:15] LABS: Appearance,Urine CLEAR (Clear); Blood, Urine TRACE-I (Negative); Color,Urine YELLOW (Yellow); Glucose,Urine (UA) Negative (Negative); Ketones,Urine TRACE (Negative); Leukocyte Esterase,Urine TRACE (Negative); Nitrate,Urine Negative (Negative); PH,Urine 5.5 (5.0-8.5); Protein,Urine 1+ (Negative); Specific Gravity, Urine >= 1.030 (1.005-1.030)
[2024-08-10 15:17] LABS: Bilirubin,Urine 2+ (Negative)
[2024-08-10 15:23] VITALS: BP 146/76; PULSE 83; RESP 18; TEMP 37.1; O2SAT 97
[2024-08-10 15:34] LABS: WBC,Urine 20-50 #/hpf (0-3)
[2024-08-10 15:35] LABS: Bacteria,Urine 2+ /lpf
[2024-08-13 05:09] LABS: HCV Ab Non Reactive (Non Reactive)
== END 2024-08-10 15:28 | disposition home or self-care (01) ==
PROVIDERS: Emergency Medicine; Nurse Practitioner; Emergency Provider Emergency Medicine; PCP Internal Medicine Adolescent Medicine
DX: B34.9 Viral infection, unspecified (principal); K21.9 Gastro-esophageal reflux disease without esophagitis; R10.9 Unspecified abdominal pain; R11.0 Nausea; R19.7 Diarrhea, unspecified; R51.9 Headache, unspecified
CPT/HCPCS: 80053; 81001; 83690; 84484; 85025; 86803; 87086; 87265; 87389; 87486; 87581; 87632; 87635; 93005; 96374; 96375; 99283; J2405

== ENCOUNTER 2024-10-11 11:42 | Emergency (ER) | payer MEDICARE, BC, SELFPAY ==
--- NOTE | 2024-10-11 12:42 | ED_ITS ---
Discharge Plan Disposition Patient Disposition: Home, Self-Care Condition: Good Prescriptions Prescriptions: New azithromycin [Zithromax] 250 mg tablet 250 mg PO UD DOSE PK Qty: 6 0RF Rx Instructions: Take two (2) tablets today, then one (1) tablet days #2 thru #5 benzonatate 100 mg capsule 100 mg PO TIDP PRN (Reason: Cough) Qty: 30 0RF No Action fexofenadine [Michelle] 60 mg Tablet 60 mg PO DAILY diphenhydramine HCl 25 mg capsule 25 mg PO Q6HP PRN (Reason: Itching) Qty: 30 0RF methylprednisolone 4 mg Tablets,Dose Pack 4 mg PO DIRECTED 6 Days Qty: 21 0RF Rx Instructions: Take 1 pack as directed for 6 days pantoprazole [Protonix] 20 mg tablet,delayed release (DR/EC) 20 mg PO DAILY 28 Days Qty: 28 0RF Referrals Follow up/Referrals: Darius Joseph MD [Primary Care Provider] - See instructions Activity Restrictions/Add. Instructions Additional Instructions/Restrictions: Drink plenty of fluids. Take tylenol or ibuprofen for pain or fever. Take the medications as directed. Follow up with your regular doctor. GO TO THE ER FOR ANY WORSENING SYMPTOMS Clinical Impressions Clinical Impression: Acute bronchitis Instructions Patient Instructions: Acute Bronchitis, DI for Acute Bronchitis Print Language Print Language: Frisian Discharge ED Provider: Ramez Chery [facility] General Stated complaint: chest congestion wheezing Time Seen by Provider: 10/11/24 12:42 Related Data Home Medications ?Medication ?Instructions ?Recorded ?Confirmed fexofenadine 60 mg tablet 60 mg PO DAILY allergies 07/19/23 08/04/24 Previous Rx's ?Medication ?Instructions ?Recorded diphenhydramine HCl 25 mg capsule 25 mg PO Q6HP PRN Itching #30 caps 08/04/24 methylprednisolone 4 mg tablets in 4 mg PO DIRECTED 6 days #21 tabs 08/04/24 a dose pack pantoprazole 20 mg tablet,delayed 20 mg PO DAILY 4 weeks #28 tabs 08/10/24 release (Protonix) azithromycin 250 mg tablet 250 mg PO UD DOSE PK #6 tabs 10/11/24 (Zithromax) benzonatate 100 mg capsule 100 mg PO TIDP PRN Cough #30 caps 10/11/24 Allergies Allergy/AdvReac Type Severity Reaction Status Date / Time bacitracin (From Neosporin Allergy Rash Verified 10/11/24 12:54 ([id number])) gabapentin Allergy Gastrointestinal Verified 10/11/24 12:54 Upset neomycin (From Neosporin Allergy Rash Verified 10/11/24 12:54 ([id number])) polymyxin B (From Neosporin Allergy Rash Verified 10/11/24 12:54 ([id number])) prednisone AdvReac Severe Gastrointestinal Verified 10/11/24 12:54 Upset Corticosteroids AdvReac Gastrointestinal Verified 10/11/24 12:57 (Glucocorticoids) Upset nitrofurantoin (From AdvReac Gastrointestinal Verified 10/11/24 12:54 Macrobid) Upset PFSH PFSH Disclaimer: The information contained in this section may have been updated after the patient was seen, as this information can be updated by other users. Medical History Kidney stone Urinary tract infection Surgical History History of appendectomy History of section History of cholecystectomy History of hysterectomy Social History Smoking Status: Never smoker alcohol intake: never current occupational status: other Travel in the last 8 weeks: None household members: spouse housing: house Have you lived/traveled outside US in past 30 days?: No Contact w/someone who lives/traveled outside US past 30 days?: No Exposure to someone with infectious disease in past 14 days?: No Do you have a fever (greater than 100.4 F or 38 C)?: No Have you tested positive for COVID-19: No Exposed to someone with COVID-19 in past 14 days?: No Do you have a sore throat?: No Do you have a cough?: Yes Do you have any weakness?: No Do you have any diarrhea?: No Are you experiencing any unusual bleeding?: No Do you have any muscle aches/pain?: No Do you have any abdominal pain?: No Are you experiencing loss of taste or smell?: No ROS Obtained: Yes All systems reviewed & no additional complaints except as documented Constitutional Constitutional: Reports poor appetite Eyes Eyes: Reports system reviewed and no additional complaints, except as documented ENT Ears, Nose, Mouth, and Throat: Reports as per HPI Cardiovascular Cardiovascular: Reports system reviewed and no additional complaints, except as documented and Denies chest pain Respiratory Respiratory: Denies shortness of breath, Reports chest congestion, Reports cough, Denies stridor and Denies wheezing Gastrointestinal Gastrointestingal: Reports system reviewed and no additional complaints, except as documented; Denies abdominal pain, diarrhea or vomiting Musculoskeletal Musculoskeletal: Reports system reviewed and no additional complaints, except as documented and Denies arthralgias Integumentary/Breasts Skin/Breast: Reports system reviewed and no additional complaints, except as documented and Denies rash Neurologic Neurologic: Denies paresthesias Allergic/Immunologic Allergic/Immunologic: Denies wheezing Physical Exam General General appearance: alert and in no apparent distress Head Head exam: atraumatic, normocephalic and normal inspection Eye Eye exam: Present normal appearance, PERRL and EOMI ENT ENT exam: Present normal exam, normal oropharynx, mucous membranes moist, TM's normal bilaterally and normal external ear exam Neck Neck exam: Present normal inspection, full ROM and trachea midline; Absent meningismus or lymphadenopathy Chest Chest inspection: Present normal inspection and symmetric chest wall rise; Absent tenderness Respiratory Respiratory exam: Present normal lung sounds bilaterally; Absent respiratory distress Cardiovascular Cardiovascular exam: Present regular rate and normal rhythm; Absent JVD Abdominal Exam Abdominal exam: Present soft and normal bowel sounds; Absent distention, tenderness or guarding Extremities Exam Extremities exam: Present normal inspection, full ROM and normal capillary refill; Absent calf tenderness Back Exam Back exam: Present normal inspection; Absent tenderness Neurological Exam Neurological exam: Present alert and oriented X3 Psychiatric Psychiatric exam: Present normal affect and normal mood Skin Skin exam: Present warm, dry, intact and normal color Lymphatic Lymphatic Findings: no adenopathy Medical Decision Making Medical Records Medical records reviewed: No I reviewed the patient's medical records. Screening: Per USPSTF and CDC recommendations, given the prevalence of disease in our region, it is our hospital?s policy to screen for HIV and viral Hepatitis for all patients aged 18 and over and those with ongoing risk factors. Carl Inquiry Pt receiving controlled substance: No
[2024-10-11 12:47] VITALS: BP 162/85; PULSE 98; RESP 20; TEMP 36.6; O2SAT 96; BMI 28.7
--- NOTE | 2024-10-11 12:47 | XR_ITS ---
FINAL REPORT CLINICAL HISTORY: Nonspecific cough, congestion COMPARISON: 09/03/2020 FINDINGS: Two views of the chest were obtained. The heart size and pulmonary vascularity are within normal limits. The mediastinum is normal. No acute pulmonary abnormality is identified. There is no pneumothorax. The bony thorax is intact. IMPRESSION: No active cardiopulmonary disease. Reviewed, Interpreted and Dictated by Benoit Matamoros III, MD Transcribed by Zulay Red Authenticated and [facility]
[2024-10-11 13:40] VITALS: BP 162/85; PULSE 98; RESP 20; TEMP 36.6
[2024-10-11 13:45] LABS: Coronavirus 19, PCR Not Detected (NotDetected); Influenza A, PCR Not Detected (NotDetected); Influenza B, PCR Not Detected (NotDetected)
== END 2024-10-11 13:45 | disposition home or self-care (01) ==
PROVIDERS: Emergency Provider Nurse Practitioner Family; PCP Internal Medicine Adolescent Medicine
DX: J20.9 Acute bronchitis, unspecified (principal); R06.2 Wheezing; R09.89 Other specified symptoms and signs involving the circulatory and respiratory systems
CPT/HCPCS: 71046; 87636; 99212; G0381

== ENCOUNTER 2024-10-29 17:53 | Emergency (ER) | payer MEDICARE, BC, SELFPAY ==
--- NOTE | 2024-10-29 17:59 | HMH.EDGENADL ---
Discharge Plan Disposition Patient Disposition: Home, Self-Care Condition: Good Prescriptions Prescriptions: New prednisone 20 mg tablet 40 mg PO DAILY 5 Days Qty: 10 0RF methocarbamol 750 mg tablet 1,500 mg PO TID 5 Days Qty: 30 0RF lidocaine 5 % adhesive patch,medicated 1 patch topical DAILY Qty: 30 0RF Rx Instructions: leave on most painful area for up to 12 hrs oxycodone 5 mg tablet 5 mg PO Q6H PRN (Reason: pain) Qty: 10 0RF No Action azithromycin [Zithromax] 250 mg tablet 250 mg PO UD DOSE PK Qty: 6 0RF Rx Instructions: Take two (2) tablets today, then one (1) tablet days #2 thru #5 benzonatate 100 mg capsule 100 mg PO TIDP PRN (Reason: Cough) Qty: 30 0RF fexofenadine [Michelle] 60 mg Tablet 60 mg PO DAILY diphenhydramine HCl 25 mg capsule 25 mg PO Q6HP PRN (Reason: Itching) Qty: 30 0RF methylprednisolone 4 mg Tablets,Dose Pack 4 mg PO DIRECTED 6 Days Qty: 21 0RF Rx Instructions: Take 1 pack as directed for 6 days pantoprazole [Protonix] 20 mg tablet,delayed release (DR/EC) 20 mg PO DAILY 28 Days Qty: 28 0RF Referrals Follow up/Referrals: Nelson Higgins MD [Staff Physician] - See instructions Darius Joseph MD [Primary Care Provider] - See instructions Activity Restrictions/Add. Instructions Additional Instructions/Restrictions: Call your family doctor to establish care for this visit to the emergency department and schedule follow-up within 48 hours to ensure improvement. If you have any worsening of your condition or any other concerning signs or symptoms, return to the emergency department or your primary care doctor for further evaluation. Meds as prescribed. Call Dr. Higgins, his office will be able to help you with acute pain and vertebroplasty (potentially fixing that collapsed vertebra) Clinical Impressions Clinical Impression: Compression fracture of thoracic spine, non-traumatic Instructions Patient Instructions: DI for Low Back Pain Print Language Print Language: Canadian Discharge ED Provider: Yayo Dickson General Adult HPI <GLADYS Shields - Last Filed: 10/29/24 20:03> General Chief complaint: Back Pain/Injury Stated complaint: AO 10/29 1350 left side back pain Time Seen by Provider: 10/29/24 17:59 History of Present Illness HPI narrative: Patient presents for evaluation of acute mid left-sided back pain. Patient was lifting a fence post and felt a sudden pop in her mid back and excruciating pain. She has no numbness no tingling no loss of motor or sensory however she has exquisite pain and has no position of comfort currently. Related Data Home Medications ?Medication ?Instructions ?Recorded ?Confirmed fexofenadine 60 mg tablet 60 mg PO DAILY allergies 07/19/23 08/04/24 Previous Rx's ?Medication ?Instructions ?Recorded diphenhydramine HCl 25 mg capsule 25 mg PO Q6HP PRN Itching #30 caps 08/04/24 methylprednisolone 4 mg tablets in 4 mg PO DIRECTED 6 days #21 tabs 08/04/24 a dose pack pantoprazole 20 mg tablet,delayed 20 mg PO DAILY 4 weeks #28 tabs 08/10/24 release (Protonix) azithromycin 250 mg tablet 250 mg PO UD DOSE PK #6 tabs 10/11/24 (Zithromax) benzonatate 100 mg capsule 100 mg PO TIDP PRN Cough #30 caps 10/11/24 lidocaine 5 % topical patch 1 patch topical DAILY #30 ea 10/29/24 methocarbamol 750 mg tablet 1,500 mg (2 x 750 mg) PO TID 5 10/29/24 days #30 tabs oxycodone 5 mg tablet 5 mg PO Q6H PRN pain #10 tabs 10/29/24 prednisone 20 mg tablet 40 mg (2 x 20 mg) PO DAILY 5 days 10/29/24 #10 tabs Allergies Allergy/AdvReac Type Severity Reaction Status Date / Time bacitracin (From Neosporin Allergy Rash Verified 10/11/24 12:54 ([id number])) gabapentin Allergy Gastrointestinal Verified 10/11/24 12:54 Upset neomycin (From Neosporin Allergy Rash Verified 10/11/24 12:54 ([id number])) polymyxin B (From Neosporin Allergy Rash Verified 10/11/24 12:54 ([id number])) prednisone AdvReac Severe Gastrointestinal Verified 10/11/24 12:54 Upset Corticosteroids AdvReac Gastrointestinal Verified 10/11/24 12:57 (Glucocorticoids) Upset nitrofurantoin (From AdvReac Gastrointestinal Verified 10/11/24 12:54 Macrobid) Upset PFSH <GLADYS Shields - Last Filed: 10/29/24 20:03> [facility] Disclaimer: The information contained in this section may have been updated after the patient was seen, as this information can be updated by other users. Medical History Kidney stone Urinary tract infection Surgical History History of appendectomy History of section History of cholecystectomy History of hysterectomy Social History Smoking Status: Never smoker alcohol intake: never current occupational status: other Travel in the last 8 weeks: None household members: spouse housing: house Have you lived/traveled outside US in past 30 days?: No Contact w/someone who lives/traveled outside US past 30 days?: No Exposure to someone with infectious disease in past 14 days?: No Do you have a fever (greater than 100.4 F or 38 C)?: No Have you tested positive for COVID-19: No Exposed to someone with COVID-19 in past 14 days?: No Do you have a sore throat?: No Do you have a cough?: No Do you have any weakness?: No Do you have any diarrhea?: No Are you experiencing any unusual bleeding?: No Do you have any muscle aches/pain?: No Do you have any abdominal pain?: No Are you experiencing loss of taste or smell?: No Other Medical History Have you received the Flu Vaccine for this season: No Have you received the Pneumonia Vaccine: No <GLADYS Shields - Last Filed: 10/29/24 20:03> ROS Obtained: Yes Systems reviewed as appropriate & no additional complaints except as documented Physical Exam <GLADYS Shields - Last Filed: 10/29/24 20:03> General General appearance: alert and in no apparent distress Neck Neck exam: Present lymphadenopathy Respiratory Respiratory exam: Present normal lung sounds bilaterally and accessory muscle use Cardiovascular Cardiovascular exam: Present regular rate Neurological Exam Neurological exam: Present alert and oriented X3 Medical Decision Making <GLADYS Shields - Last Filed: 10/29/24 20:03> Medical Records Screening: Per USPSTF and CDC recommendations, given the prevalence of disease in our region, it is our hospital?s policy to screen for HIV and viral Hepatitis for all patients aged 18 and over and those with ongoing risk factors. Carl Inquiry Pt receiving controlled substance: No Vital Signs: 10/29/24 18:10 10/29/24 19:57 Temperature 97.8 F 97.9 F Temperature Source Oral Oral Pulse Rate 96 H Pulse Rate [Left] 112 H Respiratory Rate 18 16 Blood Pressure 164/90 H Blood Pressure [Right Arm] 198/110 H Blood Pressure Mean [Right Arm] 139 Blood Pressure Source Automatic Cuff Blood Pressure Source [Right Arm] Automatic Cuff Blood Pressure Position Supine Blood Pressure Position [Right Arm] Sitting 02 Sat by Pulse Oximetry 99 Oxygen Delivery Method Room Air Room Air Orders (Tests/Meds): ED MEDICATIONS Discontinued Medications Generic Name Dose Route Start Last Admin Trade Name Freq PRN Reason Stop Dose Admin Acetaminophen 1,000 mg 10/29/24 18:02 10/29/24 18:28 Acetaminophen 500mg Tab PO 10/29/24 18:03 1,000 mg ONCE ONE Administration Ibuprofen 800 mg 10/29/24 18:02 10/29/24 18:28 Ibuprofen 400 Mg Tablet PO 10/29/24 18:03 800 mg ONCE ONE Administration Lidocaine 1 each 10/29/24 18:02 10/29/24 18:29 Lidocaine 5% Transdermal Patch TP 10/29/24 18:03 1 each ONCE ONE Administration Methocarbamol 500 mg 10/29/24 18:02 10/29/24 18:29 Methocarbamol 500mg Tablet PO 10/29/24 18:03 500 mg ONCE ONE Administration Oxycodone HCl 5 mg 10/29/24 19:52 10/29/24 19:56 Oxycodone 5mg Immediate Release Tablet PO 10/29/24 19:53 5 mg ONCE ONE Administration ORDERS Category Date Time Status CT chest wo con Stat Cat Scan 10/29/24 18:12 Completed POCUS Point of Care (ER Only) Stat Exams 10/29/24 18:37 Ordered Medical Decision Narrative: In summary patient is a 74-year-old female who presents to the emergency department for evaluation of acute left mid back pain. Patient is initially hypertensive with a blood pressure of 198/110 and tachycardic at 112 breathing 18 times a minute satting at 99% on room air upon arrival, afebrile. Physical exam is remarkable for marked tenderness to palpation in the distal thoracic spine and associated paraspinous musculature on the left. I do not palpate a bony deformity however patient hurts even to light palpation. She is neurovascularly intact distally and has no focal neurologic deficits.. Differential diagnosis includes muscle tear versus rib fracture versus spinous process fracture versus vertebral fracture etc. Initial workup will be conducted with CT scan Noncon of the chest. Initial interventions include Lidoderm patch Tylenol ibuprofen Robaxin. Initial workup reviewed by me and my informal interpretation of her CT scan of the chest shows that she has an acute compression fracture of the T10 vertebra with less than 50% loss of height and no spinal cord impingement. Upon repeat evaluation patient had modest improvement after initial intervention and is now able to lay flat. Given this I had interactive discussion with the patient and her regarding the findings and recommendations and given that tomorrow is New 's Day offered to send medication to [facility] in [place] which is available 24 hours a day so that she has some pain relief tonight. Via patient directed decision making and discharge, patient feels comfortable in going home in that regard. Prior to discharge patient is able to ambulate without assistance and has better pain control prior to discharge. Subsequently she is appropriate for discharge with referral to Dr. Higgins for pain management and back to her PCP for no improvement or worsening signs or symptoms or she can return to the ER as needed. <Yayo Dickson MD - Last Filed: 10/29/24 20:16> Vital Signs: 10/29/24 18:10 10/29/24 19:57 Temperature 97.8 F 97.9 F Temperature Source Oral Oral Pulse Rate 96 H Pulse Rate [Left] 112 H Respiratory Rate 18 16 Blood Pressure 164/90 H Blood Pressure [Right Arm] 198/110 H Blood Pressure Mean [Right Arm] 139 Blood Pressure Source Automatic Cuff Blood Pressure Source [Right Arm] Automatic Cuff Blood Pressure Position Supine Blood Pressure Position [Right Arm] Sitting 02 Sat by Pulse Oximetry 99 Oxygen Delivery Method Room Air Room Air Orders (Tests/Meds): ED MEDICATIONS Discontinued Medications Generic Name Dose Route Start Last Admin Trade Name Freq PRN Reason Stop Dose Admin Acetaminophen 1,000 mg 10/29/24 18:02 10/29/24 18:28 Acetaminophen 500mg Tab PO 10/29/24 18:03 1,000 mg ONCE ONE Administration Ibuprofen 800 mg 10/29/24 18:02 10/29/24 18:28 Ibuprofen 400 Mg Tablet PO 10/29/24 18:03 800 mg ONCE ONE Administration Lidocaine 1 each 10/29/24 18:02 10/29/24 18:29 Lidocaine 5% Transdermal Patch TP 10/29/24 18:03 1 each ONCE ONE Administration Methocarbamol 500 mg 10/29/24 18:02 10/29/24 18:29 Methocarbamol 500mg Tablet PO 10/29/24 18:03 500 mg ONCE ONE Administration Oxycodone HCl 5 mg 10/29/24 19:52 10/29/24 19:56 Oxycodone 5mg Immediate Release Tablet PO 10/29/24 19:53 5 mg ONCE ONE Administration ORDERS Category Date Time Status CT chest wo con Stat Cat Scan 10/29/24 18:12 Completed POCUS Point of Care (ER Only) Stat Exams 10/29/24 18:37 Ordered Medical Decision Narrative: In summary patient is a 74-year-old female who presents to the emergency department for evaluation of acute left mid back pain. Patient is initially hypertensive with a blood pressure of 198/110 and tachycardic at 112 breathing 18 times a minute satting at 99% on room air upon arrival, afebrile. Physical exam is remarkable for marked tenderness to palpation in the distal thoracic spine and associated paraspinous musculature on the left. I do not palpate a bony deformity however patient hurts even to light palpation. She is neurovascularly intact distally and has no focal neurologic deficits.. Differential diagnosis includes muscle tear versus rib fracture versus spinous process fracture versus vertebral fracture etc. Initial workup will be conducted with CT scan Noncon of the chest. Initial interventions include Lidoderm patch Tylenol ibuprofen Robaxin. Initial workup reviewed by me and my informal interpretation of her CT scan of the chest shows that she has an acute compression fracture of the T10 vertebra with less than 50% loss of height and no spinal cord impingement. Upon repeat evaluation patient had modest improvement after initial intervention and is now able to lay flat. Given this I had interactive discussion with the patient and her regarding the findings and recommendations and given that tomorrow is New Year's Day offered to send medication to [facility] in [place] which is available 24 hours a day so that she has some pain relief tonight. Via patient directed decision making and discharge, patient feels comfortable in going home in that regard. Prior to discharge patient is able to ambulate without assistance and has better pain control prior to discharge. Subsequently she is appropriate for discharge with referral to Dr. Higgins for pain management and back to her PCP for no improvement or worsening signs or symptoms or she can return to the ER as needed. I was consulted by the BERNARD, and we discussed the complexity of the problems being addressed. I approved the treatment and management plan for this patient's care in the Emergency Department, thus performing a substantive portion of the medical decision making. Yayo Dickson MD Critical Care <GLADYS Shields - Last Filed: 10/29/24 20:03> Critical Care Time Critical Care Time: No
[2024-10-29 18:10] VITALS: BP 198/110; PULSE 112; RESP 18; TEMP 36.6; O2SAT 99; BMI 25.7
--- NOTE | 2024-10-29 18:12 | CT_ITS ---
PROCEDURE INFORMATION: Exam: CT Chest Without Contrast; Diagnostic Exam date and time: 10/29/2024 6:18 PM Age: 74 years old Clinical indication: Pain; Left-sided; Additional info: Acute left mid back pain TECHNIQUE: Imaging protocol: Diagnostic computed tomography of the chest without contrast. Radiation optimization: All CT scans at this facility use at least one of these dose optimization techniques: automated exposure control; mA and/or kV adjustment per patient size (includes targeted exams where dose is matched to clinical indication); or iterative reconstruction. COMPARISON: CR XR CHEST 2V 10/11/2024 12:58 PM FINDINGS: Lungs: Mild scarring noted in the anterior right lung. Calcified granuloma noted in the lateral left lung base. No significant consolidation. Pleural spaces: Unremarkable. No pneumothorax. No pleural effusion. Heart: Unremarkable. No cardiomegaly. No pericardial effusion. Coronary arteries: Coronary artery stent noted. No prominent coronary artery calcifications. Lymph nodes: Unremarkable. No enlarged lymph nodes. Vasculature: Unremarkable. No aortic aneurysm. Bones/joints: There is an acute appearing comminuted fracture of the superior endplate of T10 with moderate loss of vertebral body height. No significant bony retropulsion or spinal stenosis. No other acute fracture. Soft tissues: Unremarkable. IMPRESSION: Acute compression fracture of T10 without significant spinal stenosis
[2024-10-29] MEDS: IBUPROFEN 400 MG TABLET 800 MG PO (18:28)
[2024-10-29] MEDS: ACETAMINOPHEN 500MG TAB 1000 MG PO (18:28)
[2024-10-29] MEDS: METHOCARBAMOL 500MG TABLET 500 MG PO (18:29)
[2024-10-29] MEDS: LIDOCAINE 5% TRANSDERMAL PATCH 1 EACH TP (18:29)
--- NOTE | 2024-10-29 18:54 | PC.NURSE ---
pt resting in bed no needs at this time call light in reach
[2024-10-29] MEDS: OXYCODONE 5MG IMMEDIATE RELEASE TABLET 5 MG PO (19:56)
[2024-10-29 19:57] VITALS: BP 164/90; PULSE 96; RESP 16; TEMP 36.6; O2SAT 98
--- NOTE | 2024-10-29 19:58 | PC.NURSE ---
Patient IV removed. Catheter tip intact. Bleeding controlled.
== END 2024-10-29 20:01 | disposition home or self-care (01) ==
PROVIDERS: Emergency Provider Emergency Medicine; PCP Internal Medicine Adolescent Medicine
DX: M48.54XA Collapsed vertebra, not elsewhere classified, thoracic region, initial encounter for fracture (principal); M54.9 Dorsalgia, unspecified; X50.0XXA Overexertion from strenuous movement or load, initial encounter; Y93.89 Activity, other specified; Y92.89 Other specified places as the place of occurrence of the external cause
CPT/HCPCS: 71250; 99284

== ENCOUNTER 2024-11-01 13:15 | Outpatient (POV) | payer MEDICARE, BC, SELFPAY ==
--- NOTE | 2024-11-01 13:20 | EXP.PAIN.OV ---
HPI Data of Consult Patient: new to practice Consult date: 11/01/24 Requesting Physician: Malaika Guevara APRN Primary Care Provider: Darius Joseph MD Consult Narrative Reason for consult: Mid back pain, left leg pain, compression fracture History of present illness: Ms. Horton is a 74 year old female who presents today as a new patient. She is a referral from Dr. Joseph's office. Today she rates her pain a 10 out of 10. Patient states on New she was lifting a wood fence when she felt something pop and immediately had severe shooting pain. Patient states this pain has continued since. She states that she has trouble breathing or even moving in certain positions. She states she cannot turn her head to the left without sharp shooting pain and can even do simple activities like take a shower. Patient states the pain is severe and interferes with her ability perform activities of daily living such as cooking and cleaning. She does state that it does radiate down her entire left leg. Patient does state that she has a history of osteopenia and it has been a couple years since she had a DEXA scan. Patient states she has tried oral medications and was given oxycodone and methocarbamol in the ER and that she did just have an appointment with Dr. Joseph this morning and had refills sent in. Patient does make mention that she has not had a bowel movement since having the popping sensation and that Dr. Joseph did recommend getting Dulcolax. Patient has tried topicals with minimal relief. Patient is unable to tolerate physical therapy due to the severity of pain. Patient does state the pain does seem to be more towards the left side and radiates down around going towards her abdomen and down her low back to her left leg. Patient is interested in any help we may be able to provide.She is currently being prescribed oxycodone 5 mg from an outside provider. Her Carl has been reviewed and is appropriate. CC: Malaika Guevara APRN [facility] Disclaimer: The information contained in this section may have been updated after the patient was seen, as this information can be updated by other users. Medical History Kidney stone Urinary tract infection Surgical History History of appendectomy History of section History of cholecystectomy History of hysterectomy Social History Smoking Status: Never smoker alcohol intake: never current occupational status: other Travel in the last 8 weeks: None household members: spouse housing: house Review of Systems Review of Systems Review of systems:: pertinent systems reviewed and negative unless documented below Review of systems (narrative): Review of Systems: General: No recent weight changes, no fever, no sleep disturbances Respiratory: No cough, no shortness of air, no recurring pulmonary infections Cardiovascular/peripheral vascular: No chest pain, no palpitations, no edema, no shortness of breath Gastrointestinal: No new onset incontinence, normal bowel movements reported Genitourinary: No new onset incontinence Musculoskeletal: Mid back pain, low back pain, left leg pain Psychiatric: [Normal mood/affect] Neurological: [Denies weakness in extremities], [denies balance issues] Meds Home Medications and Allergies Home Medications ?Medication ?Instructions ?Recorded ?Confirmed ?Type fexofenadine 60 mg tablet 60 mg PO DAILY allergies 07/19/23 11/01/24 History diphenhydramine HCl 25 mg capsule 25 mg PO Q6HP PRN Itching #30 caps 08/04/24 11/01/24 Rx methylprednisolone 4 mg tablets in 4 mg PO DIRECTED 6 days #21 tabs 08/04/24 11/01/24 Rx a dose pack pantoprazole 20 mg tablet,delayed 20 mg PO DAILY 4 weeks #28 tabs 08/10/24 11/01/24 Rx release (Protonix) azithromycin 250 mg tablet 250 mg PO UD DOSE PK #6 tabs 10/11/24 11/01/24 Rx (Zithromax) benzonatate 100 mg capsule 100 mg PO TIDP PRN Cough #30 caps 10/11/24 11/01/24 Rx lidocaine 5 % topical patch 1 patch topical DAILY #30 ea 10/29/24 11/01/24 Rx methocarbamol 750 mg tablet 1,500 mg (2 x 750 mg) PO TID 5 10/29/24 11/01/24 Rx days #30 tabs oxycodone 5 mg tablet 5 mg PO Q6H PRN pain #10 tabs 10/29/24 11/01/24 Rx prednisone 20 mg tablet 40 mg (2 x 20 mg) PO DAILY 5 days 10/29/24 11/01/24 Rx #10 tabs New Prescriptions to Start Prescriptions: Allergies Allergy/AdvReac Type Severity Reaction Status Date / Time bacitracin (From Neosporin Allergy Rash Verified 10/11/24 12:54 ([id number])) gabapentin Allergy Gastrointestinal Verified 10/11/24 12:54 Upset neomycin (From Neosporin Allergy Rash Verified 10/11/24 12:54 ([id number])) polymyxin B (From Neosporin Allergy Rash Verified 10/11/24 12:54 ([id number])) prednisone AdvReac Severe Gastrointestinal Verified 10/11/24 12:54 Upset Corticosteroids AdvReac Gastrointestinal Verified 10/11/24 12:57 (Glucocorticoids) Upset nitrofurantoin (From AdvReac Gastrointestinal Verified 10/11/24 12:54 Macrobid) Upset Objective Narrative: Physical Exam: General: Alert and oriented x3, no acute distress, pleasant and cooperative Lungs: Respirations even and unlabored, symmetrical chest expansion Eyes: PERRL Musculoskeletal: Flexion and extension of thoracic, lumbar [spine] somewhat guarded secondary to pain, [antalgic gait noted] point tenderness along the lower thoracic lumbar spine, positive left leg raise Neurological: Speech clear, no gross sensory deficit Additional findings Additional findings: COMPARISON: CR XR CHEST 2V 10/11/2024 12:58 PM FINDINGS: Lungs: Mild scarring noted in the anterior right lung. Calcified granuloma noted in the lateral left lung base. No significant consolidation. Pleural spaces: Unremarkable. No pneumothorax. No pleural effusion. Heart: Unremarkable. No cardiomegaly. No pericardial effusion. Coronary arteries: Coronary artery stent noted. No prominent coronary artery calcifications. Lymph nodes: Unremarkable. No enlarged lymph nodes. Vasculature: Unremarkable. No aortic aneurysm. Bones/joints: There is an acute appearing comminuted fracture of the superior endplate of T10 with moderate loss of vertebral body height. No significant bony retropulsion or spinal stenosis. No other acute fracture. Soft tissues: Unremarkable. IMPRESSION: Acute compression fracture of T10 without significant spinal stenosis INGS: MRI LUMBAR SPINE W/O CONTRAST Multiplanar MR imaging of the lumbar spine was performed without contrast. On the sagittal T2-weighted images, disc degeneration is seen at multiple levels. There are mild endplate changes at multiple levels. Several hemangiomas are noted. The vertebral alignment is normal. There is no evidence of fracture. The conus has an unremarkable appearance. L1-2: No significant central canal stenosis or neural foraminal narrowing. L2-3: An annular disc bulge is present. No significant central canal stenosis or neural foraminal narrowing. L3-4: An annular disc bulge is present. No significant central canal stenosis or neural foraminal narrowing. L4-5: An annular disc bulge is present. No significant central canal stenosis or neural foraminal narrowing. L5-S1: No significant central canal stenosis or neural foraminal narrowing. IMPRESSION: Multilevel disc degeneration and spondylosis as above. Reviewed, Interpreted and Dictated by Benoit Matamoros III, MD Transcribed by Daphne Flannery Authenticated and . [facility] Assessment and Plan *Assessment and plan (1) Compression fracture of thoracic spine, non-traumatic: Status: Acute Category: Medical Code(s): M48.54XA - Collapsed vertebra, not elsewhere classified, thoracic region, initial encounter for fracture (2) Mid back pain: Status: Acute Category: Medical Code(s): M54.9 - Dorsalgia, unspecified (3) Low back pain: Status: Acute Category: Medical Code(s): M54.50 - Low back pain, unspecified (4) Lumbar radiculopathy: Status: Acute Category: Medical Code(s): M54.16 - Radiculopathy, lumbar region Plan Patient is experiencing worsening pain in her mid back with limited range of motion and point tenderness along her lower thoracic spine. Patient did have chest x-ray that did not show any acute compression fracture of T10. I did discuss with the patient that she may be a beneficial candidate of a kyphoplasty procedure. Risk and benefits were discussed with the patient and she would like to proceed forward. I will order x-ray and MRI without contrast of her thoracic spine. If she does in fact have an acute compression fracture we will plan on proceeding forward with a kyphoplasty. I will also order the patient a DEXA scan. Patient will be ordered a back brace to reduce pain by restricting mobility of the spine and facilitate healing following an injury to the spine. Patient has already been sent in new prescriptions on her pain medication and muscle relaxers. I will order the patient a compounded cream. I did also discuss with the patient due to the severity of her pain and limited range of motion of her thoracic and lumbar spine with point tenderness and a positive left leg raise that I do believe she would benefit from a thoracic epidural at the site of the compression fracture. Risk and benefits were discussed with the patient and she would like to proceed forward with this plan of care. Patient has tried and failed conservative therapy and is not a candidate currently for physical therapy due to the severe nature and acute compression fracture of T10. Patient will be scheduled for a thoracic epidural steroid injection T10 under fluoroscopy. Patient has been instructed to contact the clinic with any concerns before the next appointment. Dr. Higgins has reviewed this note and agrees with this plan of care. This note was dictated using voice recognition software and make contain errors or omissions. All injections are used with Lidocaine, Bupivacaine and Depo Medrol. Occasionally urine drug screen is needed to verify patient's compliance with our office pain contract. This is ordered based off specific treatments related to chronic pain with the potential to abuse certain medications.
[2024-11-01 14:06] VITALS: BP 188/78; PULSE 100; RESP 16; TEMP 36.6; O2SAT 95; BMI 28.2
== END 2024-11-01 23:59 | disposition home or self-care (01) ==
LOC: SC.PAIN 13:17
PROVIDERS: PCP Internal Medicine Adolescent Medicine; Visit Provider Nurse Practitioner Family
DX: M48.54XA Collapsed vertebra, not elsewhere classified, thoracic region, initial encounter for fracture (principal); M54.9 Dorsalgia, unspecified; M54.50 Low back pain, unspecified; M54.16 Radiculopathy, lumbar region; Z73.89 Other problems related to life management difficulty
CPT/HCPCS: 99202; G0463

== ENCOUNTER 2024-11-05 09:17 | Outpatient (CLI) | payer MEDICARE, BC, SELFPAY ==
--- NOTE | 2024-11-05 09:26 | XR_ITS ---
FINAL REPORT TECHNIQUE: Bone densitometry calculations of the lumbar spine and left hip were obtained. CLINICAL HISTORY: COMPRESSION FX COMPARISON: None FINDINGS: Using L1-4, the bone mineral density of the spine is 0.761 g/cm2, corresponding to T-score of -2.6. Using the left hip, the bone mineral density of the femoral neck is 0.548 g/cm2, corresponding to a T-score of -2.7. NOTE: T-score: Standard deviation compared with peak bone mass of young adult mean. *Following the recommendations of the International Society of Bone densitometry, classification of hip BMD is based on the lower of two T-scores; total hip or femoral neck. IMPRESSION: Diminished bone mineral density of the lumbar spine and left hip consistent with osteopenia. Reviewed, Interpreted and Dictated by Jose Daniel Mckee MD Transcribed by Marti Mccormick Authenticated and . [facility]
--- NOTE | 2024-11-05 09:51 | MR_ITS ---
FINAL REPORT CLINICAL HISTORY: COMPRESSION FX WHILE LIFTING. UNABLE TO PUT WEIGHT ON LEFT LEG COMPARISON: None FINDINGS: Multiplanar MR imaging of the thoracic spine was performed without contrast. On the sagittal T2-weighted images, no significant disc degeneration is identified. There is 50% loss of height of the T10 vertebral body secondary to a superior endplate fracture and associated bone marrow edema. No retropulsion of bone is identified. The vertebral alignment is normal. No bony mass is otherwise identified. The thoracic spinal cord has an unremarkable appearance without evidence of mass, edema or syrinx. There is no evidence of canal stenosis or cord compression. On the axial images, no focal disc protrusion is identified. There is no evidence of significant canal stenosis. No paraspinous soft tissue abnormality is seen. IMPRESSION: 50% T10 compression fracture involving the superior endplate, consistent with a subacute insufficiency fracture. Reviewed, Interpreted and Dictated by Jose Daniel Mckee MD Transcribed by Marti Mccormick Authenticated and [facility]
== END 2024-11-05 23:59 | disposition home or self-care (01) ==
LOC: RAD 09:20
PROVIDERS: PCP Internal Medicine Adolescent Medicine; Visit Provider Nurse Practitioner Family
DX: M54.6 Pain in thoracic spine (principal); M85.88 Other specified disorders of bone density and structure, other site; S22.070A Wedge compression fracture of T9-T10 vertebra, initial encounter for closed fracture
CPT/HCPCS: 72146; 77080

== ENCOUNTER 2025-03-19 19:21 | Emergency (ER) | payer MEDICARE, BC, SELFPAY ==
[2025-03-19 19:50] VITALS: BP 213/101; PULSE 127; RESP 20; TEMP 36.8; O2SAT 96; BMI 28.2
--- NOTE | 2025-03-19 19:51 | ED_ITS ---
<Statement entered by Malaika Rivera DO - 03/19/25 23:49> I was consulted by the BERNARD, and we discussed the complexity of the problems being addressed. I approved the treatment and management plan for this patient's care in the emergency department, thus performing a substantive portion of the medical decision making. Malaika Rivera DO Discharge Plan Disposition Patient Disposition: Home, Self-Care Condition: Good Prescriptions Prescriptions: New lidocaine 5 % adhesive patch,medicated 1 patch topical DAILY Qty: 30 0RF Rx Instructions: leave on most painful area for up to 12 hrs No Action azithromycin [Zithromax] 250 mg tablet 250 mg PO UD DOSE PK Qty: 6 0RF Rx Instructions: Take two (2) tablets today, then one (1) tablet days #2 thru #5 benzonatate 100 mg capsule 100 mg PO TIDP PRN (Reason: Cough) Qty: 30 0RF prednisone 20 mg tablet 40 mg PO DAILY 5 Days Qty: 10 0RF methocarbamol 750 mg tablet 1,500 mg PO TID 5 Days Qty: 30 0RF lidocaine 5 % adhesive patch,medicated 1 patch topical DAILY Qty: 30 0RF Rx Instructions: leave on most painful area for up to 12 hrs oxycodone 5 mg tablet 5 mg PO Q6H PRN (Reason: pain) Qty: 10 0RF fexofenadine [Micehlle] 60 mg Tablet 60 mg PO DAILY diphenhydramine HCl 25 mg capsule 25 mg PO Q6HP PRN (Reason: Itching) Qty: 30 0RF methylprednisolone 4 mg Tablets,Dose Pack 4 mg PO DIRECTED 6 Days Qty: 21 0RF Rx Instructions: Take 1 pack as directed for 6 days pantoprazole [Protonix] 20 mg tablet,delayed release (DR/EC) 20 mg PO DAILY 28 Days Qty: 28 0RF Referrals Follow up/Referrals: Darius Joseph MD [Primary Care Provider] - See instructions Activity Restrictions/Add. Instructions Additional Instructions/Restrictions: Recommend continue taking your muscle relaxer along with Tylenol warm heat and I have sent the Lidoderm patch into your pharmacy. If you have persistent new or worsening signs or symptoms please follow-up with your PCP for further evaluation and management or return to the ER as needed. Clinical Impressions Clinical Impression: Cervicalgia Instructions Patient Instructions: DI for Neck Pain Print Language Print Language: [place] Discharge ED Provider: Malaika Rivera General Adult HPI General Chief complaint: Neck Pain/Injury Stated complaint: L Shoulder and Neck Pain Time Seen by Provider: 03/19/25 19:51 History of Present Illness HPI narrative: Patient presents for evaluation of neck pain. Patient states that she has had increasing neck pain over the last 2 days. Patient has a history of a T10 kyphoplasty due to a compression fracture. She states that she is worried that she has another 1. She has had no trauma no falls however was utilizing manual eunice and trimming bushes the day prior to her soreness. She denies any numbness and she denies any tingling or loss of motor or sensory. She has no chest pain shortness of breath fever chills hemoptysis hematochezia melena nausea vomiting diarrhea. Related Data Home Medications ?Medication ?Instructions ?Recorded ?Confirmed fexofenadine 60 mg tablet 60 mg PO DAILY allergies 07/19/23 11/01/24 Previous Rx's ?Medication ?Instructions ?Recorded diphenhydramine HCl 25 mg capsule 25 mg PO Q6HP PRN Itching #30 caps 08/04/24 methylprednisolone 4 mg tablets in 4 mg PO DIRECTED 6 days #21 tabs 08/04/24 a dose pack pantoprazole 20 mg tablet,delayed 20 mg PO DAILY 4 weeks #28 tabs 08/10/24 release (Protonix) azithromycin 250 mg tablet 250 mg PO UD DOSE PK #6 tabs 10/11/24 (Zithromax) benzonatate 100 mg capsule 100 mg PO TIDP PRN Cough #30 caps 10/11/24 lidocaine 5 % topical patch 1 patch topical DAILY #30 ea 10/29/24 methocarbamol 750 mg tablet 1,500 mg (2 x 750 mg) PO TID 5 10/29/24 days #30 tabs oxycodone 5 mg tablet 5 mg PO Q6H PRN pain #10 tabs 10/29/24 prednisone 20 mg tablet 40 mg (2 x 20 mg) PO DAILY 5 days 10/29/24 #10 tabs lidocaine 5 % topical patch 1 patch topical DAILY #30 ea 03/19/25 Allergies Allergy/AdvReac Type Severity Reaction Status Date / Time bacitracin (From Neosporin Allergy Rash Verified 10/11/24 12:54 ([id number])) gabapentin Allergy Gastrointestinal Verified 10/11/24 12:54 Upset neomycin (From Neosporin Allergy Rash Verified 10/11/24 12:54 ([id number])) polymyxin B (From Neosporin Allergy Rash Verified 10/11/24 12:54 ([id number])) prednisone AdvReac Severe Gastrointestinal Verified 10/11/24 12:54 Upset Corticosteroids AdvReac Gastrointestinal Verified 10/11/24 12:57 (Glucocorticoids) Upset nitrofurantoin (From AdvReac Gastrointestinal Verified 10/11/24 12:54 Macrobid) Upset PFSH PFSH Disclaimer: The information contained in this section may have been updated after the patient was seen, as this information can be updated by other users. Medical History Kidney stone Urinary tract infection Surgical History History of appendectomy History of section History of cholecystectomy History of hysterectomy Social History Smoking Status: Never smoker alcohol intake: never current occupational status: other Travel in the last 8 weeks?: None household members: spouse housing: house Have you lived/traveled outside [place] in past 30 days?: No Contact w/someone who lives/traveled outside US past 30 days?: No Exposure to someone with infectious disease in past 14 days?: No Do you have a fever (greater than 100.4 F or 38 C)?: No Have you tested positive for COVID-19?: No Exposed to someone with COVID-19 in past 14 days?: No Do you have a sore throat?: No Do you have a cough?: No Do you have any weakness?: No Do you have any diarrhea?: No Are you experiencing any unusual bleeding?: No Do you have any muscle aches/pain?: No Do you have any abdominal pain?: No Are you experiencing loss of taste or smell?: No Other Medical History Have you received the Flu Vaccine for this season: Yes Have you received the Pneumonia Vaccine: Yes ROS Obtained: Yes Systems reviewed as appropriate & no additional complaints except as documented Physical Exam General General appearance: alert and in no apparent distress Respiratory Respiratory exam: Present normal lung sounds bilaterally Cardiovascular Cardiovascular exam: Present regular rate Neurological Exam Neurological exam: Present alert and oriented X3 Medical Decision Making Medical Records Medical records reviewed: Yes I reviewed the patient's medical records. Screening: Per USPSTF and CDC recommendations, given the prevalence of disease in our region, it is our hospital?s policy to screen for HIV and viral Hepatitis for all patients aged 18 and over and those with ongoing risk factors. Carl Inquiry Pt receiving controlled substance: No Vital Signs: 03/19/25 19:50 03/19/25 20:00 03/19/25 21:00 Temperature 98.2 F Temperature Source Oral Pulse Rate 105 H 95 H Pulse Rate [Right Brachial] 127 H Respiratory Rate 20 Blood Pressure 189/107 H 178/101 H Blood Pressure [Right Arm] 213/101 H Blood Pressure Mean [Right Arm] 138 Blood Pressure Source [Right Arm] Automatic Cuff Blood Pressure Position [Right Arm] Sitting 02 Sat by Pulse Oximetry 96 98 97 Oxygen Delivery Method Room Air Room Air Room Air Orders (Tests/Meds): ED MEDICATIONS Discontinued Medications Generic Name Dose Route Start Last Admin Trade Name Freq PRN Reason Stop Dose Admin Lidocaine 1 each 03/19/25 20:14 03/19/25 20:26 Lidocaine 5% Transdermal Patch TD 03/19/25 20:15 1 each ONCE ONE Administration Methocarbamol 500 mg 03/19/25 20:12 03/19/25 20:26 Methocarbamol 500mg Tablet PO 03/19/25 20:13 500 mg ONCE ONE Administration ORDERS Category Date Time Status CT cervical spine wo con Stat Cat Scan 03/19/25 20:[address] thoracic spine wo con Stat Cat Scan 03/19/25 20:12 Taken Medical Decision Narrative: In summary patient is a 74-year-old female who presents to the emergency department for evaluation of cervicalgia. Patient is initially hypertensive with a blood pressure of 213/101 with a pulse of 127 sinus tachycardia the bedside monitor breathing 20 times a minute satting at 96% on room air upon arrival, afebrile. Physical exam is remarkable for cervical paraspinous and trapezius muscle tenderness left greater than right no definitive midline cervical or thoracic bony abnormalities. Patient is neurovascularly intact in her bilateral upper extremities and has full range of motion. She has limited range of motion of her C-spine due to her pain.. Differential diagnosis includes torticollis versus cervicalgia versus possible occult fracture although less likely etc. Initial workup will be conducted with CT scan of the cervical and thoracic spine that the patient's request.. Initial interventions include Tylenol Robaxin and Lidoderm initially as patient has intolerance to prednisone and declines opiates. Initial workup reviewed by me and my informed interpretation shows no acute bony abnormality prior to radiology read. Please see radiologist read for formal interpretation.. Upon repeat evaluation moderate improvement after initial intervention. Given this patient is appropriate for discharge with instruction to continue taking Tylenol warm heat and I have sent in Lidoderm patch to her pharmacy. If she has persistent new or worsening signs or symptoms follow-up with PCP return to the ER as needed. Critical Care Critical Care Time Critical Care Time: No
[2025-03-19 20:00] VITALS: BP 189/107; PULSE 105; O2SAT 98
--- NOTE | 2025-03-19 20:12 | CT_ITS ---
PROCEDURE INFORMATION: Exam: CT Thoracic Spine Without Contrast Exam date and time: 03/19/2025 8:55 PM Age: 74 years old Clinical indication: Pain in thoracic spine; Additional info: Back pain TECHNIQUE: Imaging protocol: Computed tomography of the thoracic spine without contrast. Radiation optimization: All CT scans at this facility use at least one of these dose optimization techniques: automated exposure control; mA and/or kV adjustment per patient size (includes targeted exams where dose is matched to clinical indication); or iterative reconstruction. COMPARISON: CT CERVICAL SPINE WO CON 03/19/2025 8:53 PM FINDINGS: Bones/joints: Chronic T10 vertebroplasty changes. No bony retropulsion. No acute fracture. Normal alignment. No significant arthropathy. No significant disc bulge or herniation. No severe spinal canal stenosis. No significant neural foraminal narrowing. Soft tissues: Unremarkable. IMPRESSION: Unremarkable CT Spine.
[2025-03-19] MEDS: LIDOCAINE 5% TRANSDERMAL PATCH 1 EACH TD (20:26)
[2025-03-19] MEDS: METHOCARBAMOL 500MG TABLET 500 MG PO (20:26)
--- NOTE | 2025-03-19 20:56 | CT_ITS ---
PROCEDURE INFORMATION: Exam: CT Cervical Spine Without Contrast Exam date and time: 03/19/2025 8:53 PM Age: 74 years old Clinical indication: Neck pain; Additional info: Cervicalgia TECHNIQUE: Imaging protocol: Computed tomography of the cervical spine without contrast. Radiation optimization: All CT scans at this facility use at least one of these dose optimization techniques: automated exposure control; mA and/or kV adjustment per patient size (includes targeted exams where dose is matched to clinical indication); or iterative reconstruction. COMPARISON: No relevant prior studies available. FINDINGS: Bones: No acute fracture. Normal alignment. No significant arthropathy. No significant disc bulge or herniation. No severe spinal canal stenosis. No significant neural foraminal narrowing. Lungs: Unremarkable. Soft tissues: Unremarkable. IMPRESSION: No acute findings.
[2025-03-19 21:00] VITALS: BP 178/101; PULSE 95; O2SAT 97
[2025-03-19 22:06] VITALS: BP 191/101; PULSE 108; RESP 17; TEMP 36.8; O2SAT 98
== END 2025-03-19 22:07 | disposition home or self-care (01) ==
PROVIDERS: Emergency Provider Emergency Medicine; PCP Internal Medicine Adolescent Medicine
DX: M54.2 Cervicalgia (principal); R03.0 Elevated blood-pressure reading, without diagnosis of hypertension; R00.0 Tachycardia, unspecified
CPT/HCPCS: 72125; 72128; 99284

== ENCOUNTER 2025-07-13 17:33 | Emergency (ER) | payer MEDICARE, BC, SELFPAY ==
[2025-07-13] VITALS (17 sets, daily range): BP systolic 184–207; BP diastolic 66–102; PULSE 99–118; RESP 12–21; TEMP 36.6; O2SAT 95–99; BMI 29.0
--- NOTE | 2025-07-13 17:39 | XR_ITS ---
PROCEDURE INFORMATION: Exam: XR Chest Exam date and time: 07/13/2025 7:18 PM Age: 74 years old Clinical indication: Shortness of breath; Additional info: Cp SOA TECHNIQUE: Imaging protocol: Radiologic exam of the chest. Views: 1 view. COMPARISON: CT ANGIO CHEST PE PROTOCOL 07/13/2025 7:17 PM FINDINGS: Lungs: Pleuroparenchymal scarring of the lung bases with subsegmental atelectasis is present without consolidations or pleural effusions that project above the diaphragm. Pleural spaces: Unremarkable. No pleural effusion. No pneumothorax. Heart/Mediastinum: Unremarkable. No cardiomegaly. Bones/joints: Unremarkable. IMPRESSION: Pleuroparenchymal scarring of the lung bases with subsegmental atelectasis is present without consolidations or pleural effusions that project above the diaphragm.
--- NOTE | 2025-07-13 17:42 | ED_ITS ---
Discharge Plan Disposition Patient Disposition: Home, Self-Care Prescriptions Prescriptions: New benzonatate 100 mg capsule 100 mg PO BID PRN (Reason: cough) Qty: 10 0RF No Action hydralazine 25 mg tablet 25 mg PO BID Referrals Follow up/Referrals: Darius Joseph MD [Primary Care Provider, Internal Medicine] - See instructions Clinical Impressions Clinical Impression: Bronchitis Instructions Patient Instructions: Acute Bronchitis Print Language Print Language: Citizen Of [place] Discharge ED Provider: Jamison hCew HPI <Beulah Morales APRN - Last Filed: 07/13/25 21:26> General Chief Complaint: Upper Respiratory Infection Stated Complaint: congestion,coughing up blood,headache Time Seen by Provider: 07/13/25 17:37 History of Present Illness HPI narrative: patient is a 74-year-old female PMHx history of bronchitis, history of sinusitis who presents to the ED for complaints of cough, shortness of breath, wheezing, sinusitis since 4 days ago. Patient states she recently completed a Z-Michael today for a sinus infection however her condition is unchanged. Patient reports body aches and chills. Denies additional complaints. Related Data Home Medications ?Medication ?Instructions ?Recorded ?Confirmed hydralazine 25 mg tablet 25 mg PO BID 07/13/25 Previous Rx's ?Medication ?Instructions ?Recorded benzonatate 100 mg capsule 100 mg PO BID PRN cough #10 caps 07/13/25 Allergies Allergy/AdvReac Type Severity Reaction Status Date / Time bacitracin (From Neosporin Allergy Rash Verified 10/11/24 12:54 ([id number])) gabapentin Allergy Gastrointestinal Verified 10/11/24 12:54 Upset neomycin (From Neosporin Allergy Rash Verified 10/11/24 12:54 ([id number])) polymyxin B (From Neosporin Allergy Rash Verified 10/11/24 12:54 ([id number])) prednisone AdvReac Severe Gastrointestinal Verified 10/11/24 12:54 Upset Corticosteroids AdvReac Gastrointestinal Verified 10/11/24 12:57 (Glucocorticoids) Upset nitrofurantoin (From AdvReac Gastrointestinal Verified 10/11/24 12:54 Macrobid) Upset PFSH <Beulah Morales APRN - Last Filed: 07/13/25 21:26> PFSH Disclaimer: The information contained in this section may have been updated after the patient was seen, as this information can be updated by other users. Medical History Kidney stone Urinary tract infection Surgical History History of appendectomy History of section History of cholecystectomy History of hysterectomy Social History Smoking Status: Never smoker alcohol intake: never current occupational status: other Travel in the last 8 weeks?: None household members: spouse housing: house Have you lived/traveled outside [place] in past 30 days?: No Contact w/someone who lives/traveled outside US past 30 days?: No Exposure to someone with infectious disease in past 14 days?: No Do you have a fever (greater than 100.4 F or 38 C)?: No Have you tested positive for COVID-19?: No Exposed to someone with COVID-19 in past 14 days?: No Do you have a sore throat?: No Do you have a cough?: No Do you have any weakness?: No Do you have any diarrhea?: No Are you experiencing any unusual bleeding?: No Do you have any muscle aches/pain?: No Do you have any abdominal pain?: No Are you experiencing loss of taste or smell?: No Other Medical History Have you received the Flu Vaccine for this season: Yes Have you received the Pneumonia Vaccine: Yes <Beulah Morales APRN - Last Filed: 07/13/25 21:26> ROS Obtained: Yes Systems reviewed as appropriate & no additional complaints except as documented Physical Exam <Beulah Morales APRN - Last Filed: 07/13/25 21:26> General General appearance: alert Head Head exam: atraumatic Eye Eye exam: Present PERRL and EOMI Respiratory Respiratory exam: Present wheezes Cardiovascular Cardiovascular exam: Present tachycardia Back Exam Back exam: Present full ROM Neurological Exam Neurological exam: Present alert and oriented X3 HEART Score <Beulah Morales APRN - Last Filed: 07/13/25 21:26> HEART Score HEART Score assessment performed?: No Critical Care <Beulah Morales APRN - Last Filed: 07/13/25 21:26> Critical Care Time Critical Care Time: No Medical Decision Making <Beulah Morales, CHIEF MEDICAL TECHNOLOGIST - Last Filed: 07/13/25 21:26> Carl Inquiry Pt receiving controlled substance: No Vital Signs Vital Signs: 07/13/25 17:38 07/13/25 17:44 07/13/25 17:49 Temperature 97.8 F Temperature Source Temporal Artery Scan Pulse Rate 110 H Pulse Rate [Right Radial] 115 H Respiratory Rate 14 18 Blood Pressure 200/94 H Blood Pressure [Right Arm] 200/94 H Blood Pressure Mean Blood Pressure Mean [Right Arm] 129 Blood Pressure Source Blood Pressure Source [Right Arm] Automatic Cuff Blood Pressure Position Blood Pressure Position [Right Arm] Sitting 02 Sat by Pulse Oximetry 96 95 95 Oxygen Delivery Method Room Air Room Air Room Air 07/13/25 18:00 07/13/25 18:30 07/13/25 19:00 Temperature Temperature Source Pulse Rate 104 H 99 H Pulse Rate [Right Radial] Respiratory Rate 17 19 Blood Pressure 194/102 H 189/94 H 184/75 H Blood Pressure [Right Arm] Blood Pressure Mean 114 Blood Pressure Mean [Right Arm] Blood Pressure Source Blood Pressure Source [Right Arm] Blood Pressure Position Blood Pressure Position [Right Arm] 02 Sat by Pulse Oximetry 98 98 Oxygen Delivery Method T-Piece Room Air 07/13/25 19:00 07/13/25 19:23 07/13/25 19:27 Temperature Temperature Source Pulse Rate 111 H 118 H Pulse Rate [Right Radial] Respiratory Rate 21 21 Blood Pressure 190/88 H Blood Pressure [Right Arm] Blood Pressure Mean 107 Blood Pressure Mean [Right Arm] Blood Pressure Source Blood Pressure Source [Right Arm] Blood Pressure Position Blood Pressure Position [Right Arm] 02 Sat by Pulse Oximetry 95 97 Oxygen Delivery Method 07/13/25 19:27 07/13/25 19:30 07/13/25 19:30 Temperature Temperature Source Pulse Rate 111 H 107 H Pulse Rate [Right Radial] Respiratory Rate 19 20 Blood Pressure 190/82 H Blood Pressure [Right Arm] Blood Pressure Mean 118 Blood Pressure Mean [Right Arm] Blood Pressure Source Blood Pressure Source [Right Arm] Blood Pressure Position Blood Pressure Position [Right Arm] 02 Sat by Pulse Oximetry 96 96 Oxygen Delivery Method 07/13/25 19:45 07/13/25 20:00 07/13/25 20:01 Temperature Temperature Source Pulse Rate 105 H 107 H Pulse Rate [Right Radial] Respiratory Rate 18 20 Blood Pressure 186/66 H Blood Pressure [Right Arm] Blood Pressure Mean 106 Blood Pressure Mean [Right Arm] Blood Pressure Source Blood Pressure Source [Right Arm] Blood Pressure Position Blood Pressure Position [Right Arm] 02 Sat by Pulse Oximetry 96 96 Oxygen Delivery Method 07/13/25 20:01 07/13/25 20:15 07/13/25 20:45 Temperature Temperature Source Pulse Rate 110 H 114 H 108 H Pulse Rate [Right Radial] Respiratory Rate 19 16 12 Blood Pressure Blood Pressure [Right Arm] Blood Pressure Mean Blood Pressure Mean [Right Arm] Blood Pressure Source Blood Pressure Source [Right Arm] Blood Pressure Position Blood Pressure Position [Right Arm] 02 Sat by Pulse Oximetry 96 97 98 Oxygen Delivery Method 07/13/25 21:15 07/13/25 21:15 07/13/25 21:18 Temperature Temperature Source Pulse Rate 106 H Pulse Rate [Right Radial] Respiratory Rate 16 18 Blood Pressure 207/88 H Blood Pressure [Right Arm] Blood Pressure Mean 127 Blood Pressure Mean [Right Arm] Blood Pressure Source Blood Pressure Source [Right Arm] Blood Pressure Position Blood Pressure Position [Right Arm] 02 Sat by Pulse Oximetry 97 Oxygen Delivery Method 07/13/25 21:18 07/13/25 21:29 Temperature 97.8 F Temperature Source Pulse Rate 103 H Pulse Rate [Right Radial] Respiratory Rate 18 Blood Pressure 198/90 H 198/90 H Blood Pressure [Right Arm] Blood Pressure Mean 126 Blood Pressure Mean [Right Arm] Blood Pressure Source Automatic Cuff Blood Pressure Source [Right Arm] Blood Pressure Position Sitting Blood Pressure Position [Right Arm] 02 Sat by Pulse Oximetry Oxygen Delivery Method Room Air Lab Data Labs: Lab Results 07/13/25 17:39: VBG pH 7.46 H, VBG pCO2 30.8 L, VBG pO2 108.1 H, VBG HCO3 21.4 L , VBG Total CO2 22.3 L, VBG O2 Saturation 98.4 H, VBG Base Excess -2.5 L, VBG Lactic Acid 2.9 H 07/13/25 17:41: WBC 11.1 H, RBC 4.84, Hgb 13.5, Hct 40.9, MCV 84.5, MCH 27.9, MCHC 33.0, RDW 14.1, Plt Count 272, MPV 9.5, Neut % (Auto) 68.7, Lymph % (Auto) 19.6, Bradley % (Auto) 7.4, Eos % (Auto) 3.4, Baso % (Auto) 0.5, Neut # (Auto) 7.7, Lymph # (Auto) 2.2, Bradley # (Auto) 0.8, Eos # (Auto) 0.4, Baso # (Auto) 0.1, Sodium 139, Potassium 3.2 L, Chloride 104, Carbon Dioxide 23, Anion Gap 15.2 H, BUN 7, Creatinine 0.70, Estimated Creat Clear 63, Estimated GFR 82, Est GFR ( Amer) 99, Glucose 220 H, Calcium 9.1, Total Bilirubin 0.8, AST 26, ALT 19, Alkaline Phosphatase 63, Troponin I < 0.01, NT-Pro-B Natriuret Pep 1400 H, Total Protein 7.2, Albumin 4.2, Globulin 3.0, Albumin/Globulin Ratio 1.4, SARS-CoV-2 (PCR) Not detected, Influenza A Untype (PCR) Not detected, Influenza Type B (PCR) Not detected 07/13/25 20:00: VBG pH 7.39, VBG pCO2 36.3, VBG pO2 79.7 H, VBG HCO3 21.6 L, VBG Total CO2 22.7 L, VBG O2 Saturation 95.7 H, VBG Base Excess -3.3 L, VBG Lactic Acid 4.5 H 07/13/25 17:41 07/13/25 17:41 Response Orders (Tests/Meds): ED MEDICATIONS Discontinued Medications Generic Name Dose Route Start Last Admin Trade Name Radha PRN Reason Stop Dose Admin Albuterol/Ipratropium 9 ml 07/13/25 17:39 07/13/25 17:53 Ipratropium/Albuterol 3 Ml Neb IH 07/13/25 17:40 9 ml ONCE ONE Administration Benzonatate 100 mg 07/13/25 20:45 07/13/25 20:55 Benzonatate 100mg Capsule PO 08/12/25 20:44 100 mg ONCE JULISA Administration Magnesium Sulfate 2 gm in 50 mls @ 50 mls/hr 07/13/25 17:39 07/13/25 18:48 Magnesium Sulfate 2gm/50ml Premix IV 07/13/25 18:38 50 mls/hr ONCE ONE Infusion Ceftriaxone Sodium 1 gm/ 50 mls @ 100 mls/hr 07/13/25 18:30 07/13/25 20:14 Sodium Chloride IV 07/23/25 18:29 Infused Q24H JULISA Infusion Sodium Chloride 1,000 mls @ 999 mls/hr 07/13/25 18:38 07/13/25 20:50 Sod Chlor 0.9% 1000ml Bag IV 07/13/25 19:38 Infused .Q1H1M ONE Infusion Iopamidol 70 ml 07/13/25 19:16 07/13/25 19:18 Iopamidol-370 (76%);100ml Bottle IV 07/13/25 19:17 70 ml ONCE ONE Administration Methylprednisolone Sodium Succinate 125 mg 07/13/25 17:39 07/13/25 17:53 Methylprednisolone Sod Succ 125mg Vial IV 07/13/25 17:40 125 mg ONCE ONE Administration Sodium Chloride 10 ml 07/13/25 19:16 07/13/25 19:18 Sodium Chloride 0.9% 10ml Syr (Rad Only) IV 07/13/25 19:17 10 ml ONCE ONE Administration Sodium Chloride 50 ml 07/13/25 19:16 07/13/25 19:17 0.9 % Sodium Chloride 50 Ml Vial IV 07/13/25 19:17 50 ml ONCE ONE Administration ORDERS Category Date Time Status CT angio chest PE protocol Stat Cat Scan 07/13/25 18:04 Completed CXR --portable [XR chest portable] Stat Exams 07/13/25 17:39 Completed POCUS Point of Care (ER Only) Stat Exams 07/13/25 18:29 Completed BNP [NT Pro Brain Natriuretic Pep.] Stat Lab 07/13/25 17:41 Completed CBC w/Auto Diff [Complete Blood Count Auto Diff] Stat Lab 07/13/25 17:41 Completed CMP [Comprehensive Metabolic Panel] Stat Lab 07/13/25 17:41 Completed Rapid PCR Covid and Flu A/B Stat Lab 07/13/25 17:41 Completed Trop I [Troponin I] Stat Lab 07/13/25 17:41 Completed Blood Culture Stat Micro 07/13/25 19:11 Received VBG [Venous Blood Gas] Stat RT 07/13/25 17:39 Completed VBG [Venous Blood Gas] Stat RT 07/13/25 20:00 Completed MDM Narrative Medical Decision Narrative: In summary, patient is a 74-year-old female PMHx history of bronchitis, history of sinusitis who presents to the ED for complaints of cough, shortness of breath, wheezing, sinusitis since 4 days ago. Patient states she recently completed a Z-Michael today for a sinus infection however her condition is unchanged. Patient reports body aches and chills. Denies additional complaints. Upon initial evaluation patient is alert, oriented and cooperative. She is hypertensive upon arrival, states that she took her blood pressure medication this morning. She is tachycardic. Lung sounds present bilaterally, wheezing noted bilaterally. Inspiratory and expiratory. Denies objective fever, headache, visual disturbances, abdominal pain, back pain, dysuria. Differential diagnosis include pulmonary embolism, ACS, pneumonia, pneumothorax, among others. Discussed with patient we will proceed with labs, chest x-ray, EKG and most likely CT. CBC unremarkable for significant leukocytosis, stable H&H. VBG remarkable for pH 7.46, CO2 30.8, HCO3 21.4, lactic acid 2.9. Continuous DuoNebs ordered. Will start IV fluid bolus however not 30 mL per cake due to BNP 1400. blood cultures and antibiotics. CMP remarkable for a potassium of 3.2, anion gap 15.2, glucose 220, troponin < 0.01. COVID and influenza negative. Upon reassessment, patient's condition has significantly improved. Her wheezing has decreased, she states that she feels better. Patient has a resolving respiratory alkalosis, second VBG lactic elevated however most likely type B. Chest CTA unremarkable for any acute findings. Chest x-ray read remarkable for pleural parenchymal scarring of the lung base with subsegmental atelectasis without consolidations or pleural effusions. Discussed with patient diagnosis of bronchitis. We discussed that she will need follow-up with her PCP tomorrow. I also advised her that her glucose was elevated, especially if she does not have a diagnosis of diabetes. She states that she recently received a steroid injection at her PCP office that this may be elevating the glucose as well. I advised her to follow-up on this. We discussed very strict return precautions to the ED. [place] Chew: Procedure performed was cardiac ultrasound procedure performed by Jamison Chew using the phased array probe parasternal long axis views were obtained, no large pericardial effusion normal ejection fraction, images were technically adequate and necessitated further imaging. Patient tolerated procedure well there were no complications. <Jamison Chew MD - Last Filed: 07/13/25 23:33> Vital Signs Vital Signs: 07/13/25 17:38 07/13/25 17:44 07/13/25 17:49 Temperature 97.8 F Temperature Source Temporal Artery Scan Pulse Rate 110 H Pulse Rate [Right Radial] 115 H Respiratory Rate 14 18 Blood Pressure 200/94 H Blood Pressure [Right Arm] 200/94 H Blood Pressure Mean Blood Pressure Mean [Right Arm] 129 Blood Pressure Source Blood Pressure Source [Right Arm] Automatic Cuff Blood Pressure Position Blood Pressure Position [Right Arm] Sitting 02 Sat by Pulse Oximetry 96 95 95 Oxygen Delivery Method Room Air Room Air Room Air 07/13/25 18:00 07/13/25 18:30 07/13/25 19:00 Temperature Temperature Source Pulse Rate 104 H 99 H Pulse Rate [Right Radial] Respiratory Rate 17 19 Blood Pressure 194/102 H 189/94 H 184/75 H Blood Pressure [Right Arm] Blood Pressure Mean 114 Blood Pressure Mean [Right Arm] Blood Pressure Source Blood Pressure Source [Right Arm] Blood Pressure Position Blood Pressure Position [Right Arm] 02 Sat by Pulse Oximetry 98 98 Oxygen Delivery Method T-Piece Room Air 07/13/25 19:00 07/13/25 19:23 07/13/25 19:27 Temperature Temperature Source Pulse Rate 111 H 118 H Pulse Rate [Right Radial] Respiratory Rate 21 21 Blood Pressure 190/88 H Blood Pressure [Right Arm] Blood Pressure Mean 107 Blood Pressure Mean [Right Arm] Blood Pressure Source Blood Pressure Source [Right Arm] Blood Pressure Position Blood Pressure Position [Right Arm] 02 Sat by Pulse Oximetry 95 97 Oxygen Delivery Method 07/13/25 19:27 07/13/25 19:30 07/13/25 19:30 Temperature Temperature Source Pulse Rate 111 H 107 H Pulse Rate [Right Radial] Respiratory Rate 19 20 Blood Pressure 190/82 H Blood Pressure [Right Arm] Blood Pressure Mean 118 Blood Pressure Mean [Right Arm] Blood Pressure Source Blood Pressure Source [Right Arm] Blood Pressure Position Blood Pressure Position [Right Arm] 02 Sat by Pulse Oximetry 96 96 Oxygen Delivery Method 07/13/25 19:45 07/13/25 20:00 07/13/25 20:01 Temperature Temperature Source Pulse Rate 105 H 107 H Pulse Rate [Right Radial] Respiratory Rate 18 20 Blood Pressure 186/66 H Blood Pressure [Right Arm] Blood Pressure Mean 106 Blood Pressure Mean [Right Arm] Blood Pressure Source Blood Pressure Source [Right Arm] Blood Pressure Position Blood Pressure Position [Right Arm] 02 Sat by Pulse Oximetry 96 96 Oxygen Delivery Method 07/13/25 20:01 07/13/25 20:15 07/13/25 20:45 Temperature Temperature Source Pulse Rate 110 H 114 H 108 H Pulse Rate [Right Radial] Respiratory Rate 19 16 12 Blood Pressure Blood Pressure [Right Arm] Blood Pressure Mean Blood Pressure Mean [Right Arm] Blood Pressure Source Blood Pressure Source [Right Arm] Blood Pressure Position Blood Pressure Position [Right Arm] 02 Sat by Pulse Oximetry 96 97 98 Oxygen Delivery Method 07/13/25 21:15 07/13/25 21:15 07/13/25 21:18 Temperature Temperature Source Pulse Rate 106 H Pulse Rate [Right Radial] Respiratory Rate 16 18 Blood Pressure 207/88 H Blood Pressure [Right Arm] Blood Pressure Mean 127 Blood Pressure Mean [Right Arm] Blood Pressure Source Blood Pressure Source [Right Arm] Blood Pressure Position Blood Pressure Position [Right Arm] 02 Sat by Pulse Oximetry 97 Oxygen Delivery Method 07/13/25 21:18 07/13/25 21:29 Temperature 97.8 F Temperature Source Pulse Rate 103 H Pulse Rate [Right Radial] Respiratory Rate 18 Blood Pressure 198/90 H 198/90 H Blood Pressure [Right Arm] Blood Pressure Mean 126 Blood Pressure Mean [Right Arm] Blood Pressure Source Automatic Cuff Blood Pressure Source [Right Arm] Blood Pressure Position Sitting Blood Pressure Position [Right Arm] 02 Sat by Pulse Oximetry Oxygen Delivery Method Room Air Lab Data Labs: Lab Results 07/13/25 17:39: VBG pH 7.46 H, VBG pCO2 30.8 L, VBG pO2 108.1 H, VBG HCO3 21.4 L , VBG Total CO2 22.3 L, VBG O2 Saturation 98.4 H, VBG Base Excess -2.5 L, VBG Lactic Acid 2.9 H 07/13/25 17:41: WBC 11.1 H, RBC 4.84, Hgb 13.5, Hct 40.9, MCV 84.5, MCH 27.9, MCHC 33.0, RDW 14.1, Plt Count 272, MPV 9.5, Neut % (Auto) 68.7, Lymph % (Auto) 19.6, Bradley % (Auto) 7.4, Eos % (Auto) 3.4, Baso % (Auto) 0.5, Neut # (Auto) 7.7, Lymph # (Auto) 2.2, Bradley # (Auto) 0.8, Eos # (Auto) 0.4, Baso # (Auto) 0.1, Sodium 139, Potassium 3.2 L, Chloride 104, Carbon Dioxide 23, Anion Gap 15.2 H, BUN 7, Creatinine 0.70, Estimated Creat Clear 63, Estimated GFR 82, Est GFR ( Amer) 99, Glucose 220 H, Calcium 9.1, Total Bilirubin 0.8, AST 26, ALT 19, Alkaline Phosphatase 63, Troponin I < 0.01, NT-Pro-B Natriuret Pep 1400 H, Total Protein 7.2, Albumin 4.2, Globulin 3.0, Albumin/Globulin Ratio 1.4, SARS-CoV-2 (PCR) Not detected, Influenza A Untype (PCR) Not detected, Influenza Type B (PCR) Not detected 07/13/25 20:00: VBG pH 7.39, VBG pCO2 36.3, VBG pO2 79.7 H, VBG HCO3 21.6 L, VBG Total CO2 22.7 L, VBG O2 Saturation 95.7 H, VBG Base Excess -3.3 L, VBG Lactic Acid 4.5 H Response Orders (Tests/Meds): ED MEDICATIONS Discontinued Medications Generic Name Dose Route Start Last Admin Trade Name Freq PRN Reason Stop Dose Admin Albuterol/Ipratropium 9 ml 07/13/25 17:39 07/13/25 17:53 Ipratropium/Albuterol 3 Ml Neb IH 07/13/25 17:40 9 ml ONCE ONE Administration Benzonatate 100 mg 07/13/25 20:45 07/13/25 20:55 Benzonatate 100mg Capsule PO 08/12/25 20:44 100 mg ONCE JULISA Administration Magnesium Sulfate 2 gm in 50 mls @ 50 mls/hr 07/13/25 17:39 07/13/25 18:48 Magnesium Sulfate 2gm/50ml Premix IV 07/13/25 18:38 50 mls/hr ONCE ONE Infusion Ceftriaxone Sodium 1 gm/ 50 mls @ 100 mls/hr 07/13/25 18:30 07/13/25 20:14 Sodium Chloride IV 07/23/25 18:29 Infused Q24H JULISA Infusion Sodium Chloride 1,000 mls @ 999 mls/hr 07/13/25 18:38 07/13/25 20:50 Sod Chlor 0.9% 1000ml Bag IV 07/13/25 19:38 Infused .Q1H1M ONE Infusion Iopamidol 70 ml 07/13/25 19:16 07/13/25 19:18 Iopamidol-370 (76%);100ml Bottle IV 07/13/25 19:17 70 ml ONCE ONE Administration Methylprednisolone Sodium Succinate 125 mg 07/13/25 17:39 07/13/25 17:53 Methylprednisolone Sod Succ 125mg Vial IV 07/13/25 17:40 125 mg ONCE ONE Administration Sodium Chloride 10 ml 07/13/25 19:16 07/13/25 19:18 Sodium Chloride 0.9% 10ml Syr (Rad Only) IV 07/13/25 19:17 10 ml ONCE ONE Administration Sodium Chloride 50 ml 07/13/25 19:16 07/13/25 19:17 0.9 % Sodium Chloride 50 Ml Vial IV 07/13/25 19:17 50 ml ONCE ONE Administration ORDERS Category Date Time Status CT angio chest PE protocol Stat Cat Scan 07/13/25 18:04 Completed CXR --portable [XR chest portable] Stat Exams 07/13/25 17:39 Completed POCUS Point of Care (ER Only) Stat Exams 07/13/25 18:29 Completed BNP [NT Pro Brain Natriuretic Pep.] Stat Lab 07/13/25 17:41 Completed CBC w/Auto Diff [Complete Blood Count Auto Diff] Stat Lab 07/13/25 17:41 Completed CMP [Comprehensive Metabolic Panel] Stat Lab 07/13/25 17:41 Completed Rapid PCR Covid and Flu A/B Stat Lab 07/13/25 17:41 Completed Trop I [Troponin I] Stat Lab 07/13/25 17:41 Completed Blood Culture Stat Micro 07/13/25 19:11 Received VBG [Venous Blood Gas] Stat RT 07/13/25 17:39 Completed VBG [Venous Blood Gas] Stat RT 07/13/25 20:00 Completed ECG Data Tracing #1: ECG Narrative: Independently inter by me rate is 102, rhythm is regular, axis is normal, no ST elevation in anatomical contiguous leads, QTc 423. MDM Narrative Medical Decision Narrative: In summary, patient is a 74-year-old female PMHx history of bronchitis, history of sinusitis who presents to the ED for complaints of cough, shortness of breath, wheezing, sinusitis since 4 days ago. Patient states she recently completed a Z-Michael today for a sinus infection however her condition is unchanged. Patient reports body aches and chills. Denies additional complaints. Upon initial evaluation patient is alert, oriented and cooperative. She is hypertensive upon arrival, states that she took her blood pressure medication this morning. She is tachycardic. Lung sounds present bilaterally, wheezing noted bilaterally. Inspiratory and expiratory. Denies objective fever, headache, visual disturbances, abdominal pain, back pain, dysuria. Differential diagnosis include pulmonary embolism, ACS, pneumonia, pneumothorax, among others. Discussed with patient we will proceed with labs, chest x-ray, EKG and most likely CT. CBC unremarkable for significant leukocytosis, stable H&H. VBG remarkable for pH 7.46, CO2 30.8, HCO3 21.4, lactic acid 2.9. Continuous DuoNebs ordered. Will start IV fluid bolus however not 30 mL per cake due to BNP 1400. blood cultures and antibiotics. CMP remarkable for a potassium of 3.2, anion gap 15.2, glucose 220, troponin < 0.01. COVID and influenza negative. Upon reassessment, patient's condition has significantly improved. Her wheezing has decreased, she states that she feels better. Patient has a resolving respiratory alkalosis, second VBG lactic elevated however most likely type B. Chest CTA unremarkable for any acute findings. Chest x-ray read remarkable for pleural parenchymal scarring of the lung base with subsegmental atelectasis without consolidations or pleural effusions. Discussed with patient diagnosis of bronchitis. We discussed that she will need follow-up with her PCP tomorrow. I also advised her that her glucose was elevated, especially if she does not have a diagnosis of diabetes. She states that she recently received a steroid injection at her PCP office that this may be elevating the glucose as well. I advised her to follow-up on this. We discussed very strict return precautions to the ED. [place] Chew: Procedure performed was cardiac ultrasound procedure performed by Jamison Chew using the phased array probe parasternal long axis views were obtained, no large pericardial effusion normal ejection fraction, images were technically adequate and necessitated further imaging. Patient tolerated procedure well there were no complications. I was consulted by the BERNARD, and we discussed the complexity of the problems being addressed. I approved the treatment and management plan for this patient's care in the emergency department, thus performing a substantive portion of the medical decision making. Jamison Chew MD
--- NOTE | 2025-07-13 17:44 | PC.NURSE ---
respiratory called for VBG that was sent to lab
[2025-07-13 17:51] LABS: VBG HCO3 21.4 mmol/L (23-30); VBG PCO2 30.8 mmol/L (35-51); VBG PH 7.46 mmol/L (7.31-7.41); VBG PO2 108.1 mmol/L (28-40)
[2025-07-13 17:52] LABS: Hematocrit 40.9 % (37.0-47.0); Hemoglobin 13.5 g/dL (12.2-16.2); Immature Granulocytes % 0.4 %; Mean Corpuscular HGB Conc 33.0 g/dL (31.8-35.4); Mean Corpuscular Hemoglobin 27.9 pg (27.0-31.2); Mean Corpuscular Volume 84.5 fl (81-99); Nucleated Red Blood Cells % 0 %; Platelet Count 272 K/mm3 (142-424); Red Blood Count 4.84 M/mm3 (4.20-5.40); Red Cell Distribution Width-SD 43.5 fL; White Blood Count 11.1 K/mm3 (4.8-10.8)
[2025-07-13 17:52] LABS: Lactate Venous 2.9 mmol/L (0.4-2.0)
[2025-07-13] MEDS: IPRATROPIUM/ALBUTEROL 3 ML NEB 9 ML IH (17:53)
[2025-07-13] MEDS: MAGNESIUM SULFATE IN WATER 2 GM/50 ML PIGGYBACK IV (17:53)
[2025-07-13] MEDS: METHYLPREDNISOLONE SOD SUCC 125MG VIAL 125 MG IV (17:53)
[2025-07-13 17:57] LABS: Coronavirus 19, PCR Not Detected (NotDetected); Influenza A, PCR Not Detected (NotDetected); Influenza B, PCR Not Detected (NotDetected)
--- NOTE | 2025-07-13 18:04 | CT_ITS ---
PROCEDURE INFORMATION: Exam: CTA Chest With Contrast Exam date and time: 07/13/2025 7:17 PM Age: 74 years old Clinical indication: Shortness of breath; Additional info: SOMerary quiñones TECHNIQUE: Imaging protocol: Computed tomographic angiography of the chest with contrast. Exam focused on the arteries. 3D rendering (Not supervised by radiologist): MIP and/or 3D reconstructed images were created by the technologist. Radiation optimization: All CT scans at this facility use at least one of these dose optimization techniques: automated exposure control; mA and/or kV adjustment per patient size (includes targeted exams where dose is matched to clinical indication); or iterative reconstruction. Contrast material: ISOVUE; Contrast volume: 70 ml; Contrast route: INTRAVENOUS (IV); COMPARISON: CR XR CHEST 2V 10/11/2024 12:58 PM FINDINGS: Pulmonary arteries: Normal. No pulmonary emboli. Aorta: There is moderate calcific atherosclerotic disease of the thoracic aorta without aneurysmal dilatation. Lungs: Left lower lobe calcified nodule compatible with prior granulomatous process. Dependent bilateral lung base opacities favor atelectasis. Pleural spaces: Right anterior thoracic pleural-parenchymal scarring. Heart: Unremarkable. No cardiomegaly. No pericardial effusion. Lymph nodes: Unremarkable. No enlarged lymph nodes. Liver: There is diffuse hypoattenuation of the liver compatible with moderate hepatic steatosis. Gallbladder and biliary ducts: There are surgical clips within the gallbladder fossa. Bones/joints: Postsurgical changes compatible with vertebroplasty of T10. Soft tissues: Unremarkable. IMPRESSION: No acute findings.
[2025-07-13 18:07] LABS: Chloride 104 mmol/L (98-107)
[2025-07-13 18:08] LABS: Albumin Level 4.2 g/dl (3.5-5.0); Potassium 3.2 mmoL/L (3.5-5.1); Sodium 139 mmol/L (136-145)
[2025-07-13 18:10] LABS: Alanine Aminotransferase 19 U/L (12-78); Aspartate Amino Transferase 26 U/L (14-36); Blood Urea Nitrogen 7 mg/dl (7-17); Creatinine Clearance Estimated 63 mL/min (50-200); Creatinine,Serum 0.70 mg/dl (0.52-1.04); Estimated Glomerular Filt Rate 82 ml/min (>60); GFR (African American) 99 ML/MIN (>60)
[2025-07-13 18:11] LABS: Albumin/Globulin Ratio 1.4 (1.1-1.8); Alkaline Phosphatase 63 U/L (38-126); Anion Gap 15.2 mEq/L (5-15); Bilirubin,Total 0.8 mg/dl (0.2-1.3); Calcium 9.1 mg/dl (8.4-10.2); Carbon Dioxide 23 mmol/L (22.0-30.0); Globulin 3.0 g/dL (1.3-3.2); Glucose 220 mg/dl (74-100); Total Protein,Serum 7.2 g/dl (6.3-8.2)
[2025-07-13 18:20] LABS: NT Pro Brain Natriuretic Pep. 1400 pg/mL (0-450)
--- NOTE | 2025-07-13 18:33 | PC.NURSE ---
Dr Chew at bedside doing cardiac POCUS
[2025-07-13 18:34] LABS: Troponin I < 0.01 ng/ml (0.00-0.034)
[2025-07-13] MEDS: 0.9 % SODIUM CHLORIDE 1000ML 1,000 ML 999 ML IV (19:00)
--- NOTE | 2025-07-13 19:15 | PC.NURSE ---
report given to Lara LUEVANO at 1904
[2025-07-13] MEDS: 0.9 % SODIUM CHLORIDE 50 ML VIAL IV (19:17)
[2025-07-13] MEDS: IOPAMIDOL-370 (76%);100ML BOTTLE 70 ML IV (19:18)
[2025-07-13] MEDS: SODIUM CHLORIDE 0.9% 10ML SYR (RAD ONLY) 10 ML IV (19:18)
[2025-07-13] MEDS: CEFTRIAXONE 1 GM 1 GM in 0.9 % SODIUM CHLORIDE 50 ML IV (19:23)
[2025-07-13 20:20] LABS: VBG HCO3 21.6 mmol/L (23-30); VBG PCO2 36.3 mmol/L (35-51); VBG PH 7.39 mmol/L (7.31-7.41); VBG PO2 79.7 mmol/L (28-40)
[2025-07-13 20:21] LABS: Lactate Venous 4.5 mmol/L (0.4-2.0)
[2025-07-13] MEDS: BENZONATATE 100MG CAPSULE 100 MG PO (20:55)
[2025-07-13 21:53] LABS: Reflex Lactic Add Lactic Reflex
== END 2025-07-13 21:30 | disposition home or self-care (01) ==
PROVIDERS: Nurse Practitioner; Emergency Provider Emergency Medicine; PCP Internal Medicine Adolescent Medicine
DX: J40 Bronchitis, not specified as acute or chronic (principal)
CPT/HCPCS: 71045; 71275; 80053; 82803; 83880; 84484; 85025; 87040; 87636; 93005; 96361; 96365; 96367; 96375; 99285; J0696; J2919; J3475; J7030; Q9967

== ENCOUNTER 2025-09-04 14:49 | Outpatient (CLI) | payer MEDICARE, BC, SELFPAY ==
--- NOTE | 2025-09-04 14:53 | MR_ITS ---
FINAL REPORT CLINICAL HISTORY: AGE RELATED OSTEOPOROSIS W CURRENT FX KYPHOPLASTY IN OCT 2024 HX OF T10 FRACTURE FINDINGS: Multiplanar MR imaging of the thoracic spine was performed without contrast. On the sagittal T2-weighted images, there is mild abnormal signal throughout the thoracic discs. There is 40% loss of height of the T10 vertebral body without evidence of marrow edema. There are postoperative changes from prior kyphoplasty. There is no evidence of acute fracture. The vertebral alignment is normal. No bony mass is identified. The thoracic spinal cord has an unremarkable appearance without evidence of mass, edema or syrinx. There is no evidence of canal stenosis or cord compression. On the axial images, there is a mild disc bulge at T9-10 with mild bilateral neuroforaminal narrowing. There is no evidence of significant canal stenosis. No paraspinous soft tissue abnormality is seen. IMPRESSION: Mild disc bulge at T9-10 with mild bilateral neuroforaminal narrowing. Abnormal loss of height of T10 without evidence of marrow edema. Reviewed, Interpreted and Dictated by Jose Daniel Mckee MD Transcribed by Jeannette Jorgensen Authenticated and [facility]
--- OUTSIDE RECORDS SUMMARY | 2025-09-04 14:53 | XMS_ITS | Clinical Summary ---
Author Organization [facility] ([place], [place], [place], [place], [place]) Address [address] [place] [address] Care Team Providers Care Refrigeration Service Inspector Name Role Phone Darius Joseph MD Primary Care Provider [phone] Selin Alex MD Unavailable [phone] Allergies Active Allergy Reactions Criticality Noted Date Comments Bacitracin 04/14/2018 Codeine 09/25/2023 Other reaction(s): nausea Denosumab 09/25/2023 Neomycin 04/14/2018 Polymyxin B 04/14/2018 Medications fexofenadine (TRACY) 180 MG tablet Take 1 tablet (180 mg total) by mouth daily. Active Active Problems Problem Noted Date Diagnosed Date Colon polyps 09/19/2023 09/19/2023 Seasonal rhinitis 09/19/2023 09/19/2023 Vitamin B12 deficiency 09/19/2023 3 Abnormal echocardiogram 09/19/2023 Shortness of breath 09/19/2023 Hypertension 09/19/2023 GERD (gastroesophageal reflux disease) 3 Breast cancer 09/19/2023 Osteopenia 09/19/2023 Lower back pain 12/12/2022 09/19/2023 Encounters Date Type Department Care Team Description 07/04/2025 Telephone [facility] [place] [address] [place] [address] Shawanda Logan MS Appointment from Last 3 Months Family History Medical History Relation Name Comments Cancer Father Leukemia Father Colon cancer Mother Diabetes Mother Heart disease Mother Hypertension Mother Stroke Mother Arthritis Other Cancer Other Diabetes Other Gout Other Heart disease Other High blood pressure Other Kidney disease Other Thyroid disease Other Breast cancer Neg Hx Ovarian cancer Neg Hx Relation Name Status Comments Father Mother Other Social History Tobacco Use Types Packs/Day Years Used Date Smoking Tobacco: Never Smokeless Tobacco: Never Alcohol Use Standard Drinks/Week Comments Not Asked 0 (1 standard drink = 0.6 oz pur e alcohol) VERY LITTLE CAFFEINE USE Family and Community Support Answer Johnnie e Recorded Help with Day to Day Activities Not on file 11/09/2023 Feeling Lonely or Isolated Not on file 11/09 Educational Attainment Answer Date Kiko rded Speak language other than French at home Not on file 11/09/2023 Want help with school or training Not on file 11/09/2023 Substance Use Answer Date Recorded Used prescription meds for non-medical reasons N ot on file 11/09/2023 Used illegal drugs past 12 months Not on file 11/09/2023 Comments Unknown Sex and Gender Information Value Date Recorded Sex Assigned at Not on file Legal Sex Female 5:14 PM CDT Gender Identity Not on file Sexual Orientation Not on file Last Filed Vital Signs Vital Sign Reading Time Taken Comments Blood Pressure 177/97 02/10/2025 10:51 AM EDT Pulse 111 02/10/2025 10:51 AM EDT Temperature - - Respiratory Rate 20 03/27/2024 10:34 AM EDT Oxygen Saturation 98% 03/27/2024 10:34 AM EDT Inhaled Oxygen Concentration - - Weight 79.4 kg (175 lb) 02/10/2025 10:43 AM EDT Height 167.6 cm (5' 6 ) 02/10/2025 10:43 AM EDT Body Mass Index 28.25 02/10/2025 10:43 AM EDT Plan of Treatment Upcoming Encounters Date Type Department Care Team (Late st Contact Info) Description 06/03/2026 9:45 AM EDT Appointment [address] [address] Health Maintenance Due Date Last Done Comments Depression Screening (12+) 1961 Hepatitis C Screening 1967 Pneumococcal 50+ years (1 of 1 - PCV) 1999 Shingles Vaccine (Zoster) (1 of 2) 1999 Medicare Initial AWV G0438 07/01/2015 DXA SCAN 05/07/2022 05/07/2020 Respiratory Syncytial Virus (RSV) Adult or (1 - 1-dose 75+ series) 2024 Falls Risk Screening 10/30/2024 COVID-19 VACCINE (2 - 2024-2 6 season) 2025 01/28/2021 Influenza Vaccine (#1) 2025 09/04/2023, 2020 Tobacco Cessation Counseling and Screening (12+) 02/10/2026 02/10/2025 DTAP/TDAP/TD VACCINES (2 - T d or Tdap) 04/14/2028 04/14/2018 Breast Cancer Screening Discontinued 05/29/20 25, 05/20/2024, 05/17/2023, Additional history exists Procedures Procedure Name Priority Date/Time Associated Diagnosis Comments MM DIGITAL MAMMO SCREEN WITH LAI BILATERAL Routine 05/29/2025 9:47 AM EDT Visit for screening mammogram DXA BONE DENSITY SPINE AND HIP Routine 05/07/2020 3:23 PM EDT from Last 3 Months or Most Recently Relevant to Health Maintenance Results * MM digital mammo screen with lai bilateral (05/29/2025 9:47 AM EDT) Anatomical Region Laterality Modality Breast Bilateral Mammography 06/01/2025 2:56 PM EDT Impressions 06/01/2025 3:10 PM EDT No mammographic evidence of malignancy. BI-RADS CATEGORY: 2 , BENIGN FINDING(S). RECOMMENDED FOLLOW-UP: Routine annual screening mammography. A letter including results and recommendations was sent to the patient. Density notification was provided as well. Patient information entered into a reminder system with a target due date for the next mammogram. At our facility, a siletz tribe marker is positioned over a visible skin lesion and a linear marker is used to indicate a scar. A triangular marker is placed on a self reported palpable finding. Mammography does not detect approximately 10-15% of breast cancers. An annual clinical breast exam by the patient's breast care physician and regular monthly self breast exams by the patient are integral parts of breast cancer screening. A normal mammogram does not completely exclude the presence of breast cancer, especially if there is an abnormal finding on physical exam. When clinically indicated, a biopsy should not be deferred because of a normal mammogram report. : 1950 Images reviewed, interpreted, and dictated by Opal Yusuf MD Narrative 06/01/2025 3:10 PM EDT BILATERAL SCREENING DIGITAL MAMMOGRAPHY CLINICAL INDICATION: Routine screening personal history of right breast cancer in 2016. FAMILY HISTORY: No family history. TECHNIQUE: Bilateral CC and MLO views were obtained with 2-D and 3-D digital acquisitions. The study was read with the assistance of CAD. COMPARISON: Previous studies back to 2021. FINDINGS: No spiculated mass, calcifications or new area of architectural distortion is seen. There are scattered areas of fibroglandular density bilaterally. No change identified. Posttreatment change on the right is stable. us Darius Joseph MD IMG MAMMOGRAPHY ORDERABLES F inal Result * DXA bone density spine and hip (05/07/2020 3:23 PM EDT) Anatomical Region Laterality Modality Bone Radiographic Do ging 05/07/2020 3:23 PM EDT Narrative 05/07/2020 11:12 PM EDT PROCEDURE: BONE DENSITOMETRY (DXA) REASON FOR EXAM: Postmenopausal osteoporosis RISK FACTORS: Estrogen deficiency COMPARISON STUDY: 02/15/2018 from [facility] FINDINGS: Bone densitometry was performed using a [employer] 123 QDR series machine. Sites measured included the spine and left hip. Both sites appear to be valid. Using L1-4, the bone mineral density of the spine is 0.760 g/cm2, compared to 0.786 g/cm2 on the prior exam. This corresponds to a T-score of -2.6 on the present exam, compared to a T-score of -2.4 previously. Using the femoral neck, the bone mineral density of the hip is 0.569 g/cm2, compared to 0.579 g/cm2 on the prior exam. This corresponds to a T-score of -2.5 on the present exam, compared to a T-score of -2.4 previously. NOTE: T-score: standard deviation compared with peak bone mass of young adult mean. Z-score: standard deviation compared with age-matched mean. * Following the recommendations of the International Society of Bone Densitometry, classification of hip BMD is based upon the lower of two T-scores; total hip or femoral neck. FINAL IMPRESSION: OSTEOPOROSIS: Lowest T-score is at or below -2.5. This patient's T-score meets the World Health Organization criteria for osteoporosis. RECOMMENDATION: After secondary causes of osteoporosis are excluded, recommend treatment with an antiresorptive or anabolic agent. Repeat BMD measurement in 2 years. UNIVERSAL GUIDELINES: 1. Adequate intake of calcium (at least 1200 mg/day). 2. Vitamin D supplementation (800 to 1000 IU/day) for individuals at risk of insufficiency. 3. Regular weight-bearing exercise. 4. Fall prevention. 5. Avoidance of tobacco and alcohol. Procedure Note Vanessa Matamoros MD - 02/14/2023 PROCEDURE: BONE DENSITOMETRY (DXA) REASON FOR EXAM: Postmenopausal osteoporosis RISK FACTORS: Estrogen deficiency COMPARISON STUDY: 02/15/2018 from [facility] FINDINGS: Bone densitometry was performed using a [employer] 123 QDR series machine. Sites measured included the spine and left hip. Both sites appear to be valid. Using L1-4, the bone mineral density of the spine is 0.760 g/cm2, compared to 0.786 g/cm2 on the prior exam. This corresponds to a T-score of -2.6 on the present exam, compared to a T-score of -2.4 previously. Using the femoral neck, the bone mineral density of the hip is 0.569 g/cm2, compared to 0.579 g/cm2 on the prior exam. This corresponds to a T-score of -2.5 on the present exam, compared to a T-score of -2.4 previously. NOTE: T-score: standard deviation compared with peak bone mass of young adult mean. Z-score: standard deviation compared with age-matched mean. * Following the recommendations of the International Society of Bone Densitometry, classification of hip BMD is based upon the lower of two T-scores; total hip or femoral neck. FINAL IMPRESSION: OSTEOPOROSIS: Lowest T-score is at or below -2.5. This patient's T-score meets the World Health Organization criteria for osteoporosis. RECOMMENDATION: After secondary causes of osteoporosis are excluded, recommend treatment with an antiresorptive or anabolic agent. Repeat BMD measurement in 2 years. UNIVERSAL GUIDELINES: 1. Adequate intake of calcium (at least 1200 mg/day). 2. Vitamin D supplementation (800 to 1000 IU/day) for individuals at risk of insufficiency. 3. Regular weight-bearing exercise. 4. Fall prevention. 5. Avoidance of tobacco and alcohol. Vanessa Matamoros MD IMG DXA ORDERABLES Final Resul t from Last 3 Months or Most Recently Relevant to Health Maintenance Insurance [facility] [employer] MEDICARE PART A B Care Teams Refrigeration Service Inspector Relationship Specialty Start Date End Date Darius Joseph MD [address] [place] [address] [place] [address] PCP - General Adolescent Medicine 05/17/23 Selin Alex MD [address] [place] [address] Consulting Physician Orthopedic Surgery - Hand 02/10/25
--- OUTSIDE RECORDS SUMMARY | 2025-09-04 14:53 | XMS_ITS | Data Portability ---
Author Organization [facility] RAMILA Sandoval [place] Address [address] [facility] [address] [place] [address] Care Team Providers Care Managed Care Manager Name Role Phone AGGIE SOTO Primary Care Provider [phone] AGGIE SOTO Referring Provider [phone] Assessment No assessment recorded. Plan of Treatment Reminders Order Date Submit Date Provider Last Modified By Organization Details Last Modified Time Details Appointments RECHEC K 2024 01:30P M MARY BARRIENTOS MD Not available Not available Not available DERM VISIT 2025 10:10A M ROSAURA BAUM MARINE STEWARD Not available Not available Not available DERM ESTABL ISHED 2025 09:30A M ROSAURA BAUM MARINE STEWARD Not available Not available Not available Lab surgic al pathol ogy study 2024 07 025 [facility], [facility] [place], [address], 04/30/2025 11:03:01 Referral None record ed. Procedures None record ed. Surgeries None record ed. Imaging None record ed. Medication Orders None record ed. Patient TargetsNo targets recorded. Patient Instructions Encounter Date Encounter Id Patient Instructions Last Modified By Organization Details Last Modified Time 10/18/2019 [id number] 1. VNG results reviewed with patient 2. Recommend vestibular physical therapy 3. F/u prn, or per physical therapy recommendations. [email or web address] Not available 10/18/2019 09:38:00 Reason for Referral None Reported. Results Created Date Observation Date Name Description Value Unit Range Abnormal Flag Note LastModifiedBy Organization Detail LastModifiedTime 04/29/2004/29/2025 SURGI LEO surgical SEE BELOW abnormal Wyatt topat holog y Repor t NAME: BRIGIDA RESENDEZ PATH: [id number] PROCE DURE DATE: 04/29 SIGNO UT DATE: 04/30 Copy to: Diagn osis: Right dorsa l forea rm- BASAL CELL CARCI NOMA, SUPER FICIA L Comme nt: The jaret ns are free of tumor in the secti ons exami tay. AJCC: T1, Nx, Mx SOURC E OF SPECI MEN: SKIN, R DORSA L FOREA RM CLINI LEO INFOR MATIO N: R/O: BCC. Gross Descr iptio n: The speci men consi sted of a huang fragm ent which was trise cted and measu red 10 x 8 x 1 mm. All submi tted in one casse tte. Micro scopi c Descr iptio n: Super ficia l aggre carreon of basal oid cells are prese nt at the derma l-epi derma l junct ion. ELIZ ARRIOLA MD Mena d Out Date: 04/30 11:02 1 Not Available [facility] [address] [facility], [place], [address], 04/30/2025 11:03:01 08/28/20 25 08/28/2025 urina lysis panel , auto Unknown Analyte Clean Catch Not Available [facility] [place] [facility] [address] , [place], [address], 08/28/2025 14:02:42 08/28/20 25 08/28/2025 urina lysis panel , auto Unknown Analyte Yellow Not Available [facility] [place] [facility] [address] , [place], [address], 08/28/2025 14:02:42 08/28/20 25 08/28/2025 urina lysis panel , auto Unknown Analyte Clear Not Available [facility] [place] [facility] [address] F, [place], [address], 08/28/2025 14:02:42 08/28/20 25 08/28/2025 urina lysis panel , auto Unknown Analyte 1.020 Not Available [facility] With [address] F, [place], [address], 08/28/2025 14:02:42 08/28/20 25 08/28/2025 urina lysis panel , auto Unknown Analyte 1.003 - 1.030 Not Available [facility] [address] Karyn Domingo, [place], [address], 08/28/2025 14:02:42 08/28/2008/28/2025 urina lysis panel , auto Unknown Analyte 5.0 Not Available [facility] access hospital With [address] Karyn Domingo, [place], [address], 08/28/2025 14:02:42 08/28/20 25 08/28/2025 urina lysis panel , auto Unknown Analyte 5.0 - 8.0 Not Available [facility] [address] Karyn Domingo, [place], [address], 08/28/2025 14:02:42 08/28/20 25 08/28/2025 urina lysis panel , auto Unknown Analyte 75 Hugo/uL Not Available [facility] With [address], [place], [address], 08/28/2025 14:02:42 08/28/20 25 08/28/2025 urina lysis panel , auto Unknown Analyte Negati ve Not Available [facility] [address] Karyn Domingo, [place], [address], 08/28/2025 14:02:42 08/28/20 25 08/28/2025 urina lysis panel , auto Unknown Analyte Negati ve Not Available [facility] [address] Karyn Domingo, [place], [address], 08/28/2025 14:02:42 08/28/2008/28/2025 urina lysis panel , auto Unknown Analyte Negati ve Not Available [facility] With [address] Karyn Domingo, [place], [address], 08/28/2025 14:02:42 08/28/2008/28/2025 urina lysis panel , auto Unknown Analyte Negati ve Not Available [facility] With [address], [place], [address], 08/28/2025 14:02:42 08/28/2008/28/2025 urina lysis panel , auto Unknown Analyte Negati ve Not Available [facility] [address], [place], [address], 08/28/2025 14:02:42 08/28/20 25 08/28/2025 urina lysis panel , auto Unknown Analyte Normal Not Available [facility] With [address], [place], [address], 08/28/2025 14:02:42 08/28/2008/28/2025 urina lysis panel , auto Unknown Analyte Normal Not Available [facility] With [address], [place], [address], 08/28/2025 14:02:42 08/28/20 25 08/28/2025 urina lysis panel , auto Unknown Analyte Negati ve Not Available [facility] With [address], [place], [address], 08/28/2025 14:02:42 08/28/20 25 08/28/2025 urina lysis panel , auto Unknown Analyte Negati ve Not Available [facility] With [address], [place], [address], 08/28/2025 14:02:42 08/28/2008/28/2025 urina lysis panel , auto Unknown Analyte Normal Not Available [facility] With [address], [place], [address], 08/28/2025 14:02:42 08/28/2008/28/2025 urina lysis panel , auto Unknown Analyte Normal Not Available [facility] With [address], [place], [address], 08/28/2025 14:02:42 08/28/2008/28/2025 urina lysis panel , auto Unknown Analyte Negati ve Not Available [facility] [address], [place], [address], 08/28/2025 14:02:42 08/28/2008/28/2025 urina lysis panel , auto Unknown Analyte Negati ve Not Available [facility] [address] [place], [place], [address], 08/28/2025 14:02:42 08/28/2008/28/2025 urina lysis panel , auto Unknown Analyte Negati ve Not Available [facility] [address], [place], [address], 08/28/2025 14:02:42 08/28/2008/28/2025 urina lysis panel , auto Unknown Analyte Negati ve Not Available [facility] With [address], [place], [address], 08/28/2025 14:02:42 Result Notes None recorded. Problems Name Problem SNOMED Code Status Onset Date Resolution Date Notes Provider Name and Address Organization Details Recorded Time History of malignant neoplasm of breast 482225251 Active 2024 [facility] Problem Notes None recorded. Procedures Surgical History Date Name Laterality Status Provider Name and Address Organization Details Recorded Time 06/17/20 25 DAK - ED&C; trunk,arm,leg completed Marilydona Robles [facility] 06/17/2025 13:08:28 04/29/20 25 DAK - Cryo AK completed Marilydona Robles [facility] 04/29/2025 09:52:26 04/29/20 25 DAK - Biopsy, Tangential completed Marily Robles [facility] 04/29/2025 09:51:34 09/30/20 19 Balance Testing completed BAKARI MULLINS [address] [place], [address], [facility] 09/30/2019 12:16:58 08/16/20 19 Tympanogram completed BAKARI MULLINS [address] [place], [address], [facility] 08/16/2019 14:00:42 08/16/20 19 Audiogram completed MONICA MENDEZ AUD [address] [place], [address], [facility] 08/16/2019 14:00:40 Tonsillectomy completed [facility] 08/16/2019 13:53:44 cholecystectomy completed [facility] 08/16/2019 13:53:53 hysterectomy completed [facility] 08/16/2019 13:54:04 lumpectomy of right breast completed [facility] 08/16/2019 13:54:22 Unlisted px hands/fingers completed [facility] 08/16/2019 13:54:30 Unlisted px foot/toes completed [facility] 08/16/2019 13:54:45 Appendectomy completed [facility] 08/28/2025 13:59:19 reconstruction of eyelid completed yTe Donnie [facility] 08/28/2025 13:59:32 Imaging Results None recorded. Procedure Notes None recorded. Medical Equipment None Reported. Allergies Allergen ID Allergen Name Allergen Category Reaction Reaction Severity Criticality Documentation Date Start Date Code Code System Note Provider Name and Address Organization Details Recorded Time 259027 bacitraci n / neomycin / polymyxin B / pramoxine medicatio n Not available Not available Not available 09/23/20162011 83860 0 RxNorm Comme nt: Creat ed By: Guille Briggs; Creat ed Date: 2011 4:11: 52 PM; Not Available [facility] 04:32:33 Medications Name Sig Start Date Stop Date Status Note LastModified by Organization Details LastModified Time amoxicill in 500 mg capsule 08/16 completed Not Available Not Available Not Available doxycycli ne hyclate 100 mg capsule 08/16 completed Not Available Not Available Not Available carvedilo l 12.5 mg tablet TAKE 1 TABLET BY MOUTH TWICE DAILY WITH FOOD active Not Available Not Available No t Available loperamid e 2 mg capsule 08/16 completed Not Available Not Available Not Available cetirizin e 10 mg tablet TAKE 1 TABLET BY MOUTH ONCE DAILY active Not Available Not Available No t Available azithromy ronal 250 mg tablet TAKE 2 TABLETS BY MOUTH ON DAY 1, AND THEN TAKE 1 TABLET BY MOUTH ONCE A DAY ON DAY 2 THROUGH DAY 5 08/28 completed Not Available Not Available Not Available hydrocodo ne 5 mg-acetam inophen 325 mg tablet 08/16 completed Not Available Not Available Not Available phenazopy ridine 200 mg tablet TAKE 1 TABLET BY MOUTH TWICE DAILY AFTER A MEAL active Not Available Not Available No t Available prednison e 20 mg tablet TAKE 2 TABLETS BY MOUTH EVERY DAY FOR 5 DAYS active Not Available Not Available No t Available chlorthal idone 25 mg tablet TAKE 1 TABLET BY MOUTH ONCE DAILY active Not Available Not Available No t Available Microzide 12.5 mg capsule 08/16 completed Duration : 10 days;Med ication Descript ion: hydrochl orothiaz nicho; Route:or al; refills: 0; Quantity :30 capsule Not Available Not Available Not Available ondansetr on 8 mg disintegr ating tablet DISSOLVE 1 TABLET IN MOUTH 4 TIMES DAILY active Not Available Not Available No t Available pantopraz ole 20 mg tablet,de layed release TAKE 1 TABLET BY MOUTH ONCE DAILY FOR 28 DAYS active Not Available Not Available No t Available alendrona te 35 mg tablet TAKE 1 TABLET ONCE A WEEK 30 MINUTES BEFORE THE FIRST FOOD, BEVERAGE OR MEDICINE OF THE DAY WITH PLAIN WATER FOR 30 DAYS 08/28 completed Not Available Not Available Not Available methenami ne hippurate 1 gram tablet Take 1 tablet twice a day by oral route for 90 days. 2024 active Not Available Not Available Not Avai lable amoxicill in 875 mg tablet 08/16 completed Not Available Not Available Not Available methocarb phillip 750 mg tablet TAKE 1 TABLET BY MOUTH THREE TIMES DAILY active Not Available Not Available No t Available benzonata te 100 mg capsule TAKE 1 CAPSULE BY MOUTH THREE TIMES DAILY NEEDED FOR COUGH 08/28 completed Not Available Not Available Not Available indapamid e 1.25 mg tablet Take 1 tablet every day by oral route. active Not Available Not Available No t Available hydrochlo rothiazid e 25 mg tablet 08/16 completed Not Available Not Available Not Available Nasonex 50 mcg/actua tion [place] 2 sprays every day by intranas al route. active Not Available Not Available No t Available ibuprofen 600 mg tablet 08/16 completed Not Available Not Available Not Available oxycodone -acetamin ophen 7.5 mg-325 mg tablet TAKE 1 TABLET BY MOUTH EVERY 6 HOURS NEEDED FOR 10 DAYS active Not Available Not Available No t Available methylpre dnisolone 4 mg tablets in a dose pack TAKE BY MOUTH DIRECTED ON INSIDE OF PACKAGE 08/28 completed Not Available Not Available Not Available fluticaso ne propionat e 50 mcg/actua tion nasal spray,juan f pension 08/16 completed Not Available Not Available Not Available clotrimaz ole 1 % topical cream 08/16 completed Not Available Not Available Not Available dicyclomi ne 10 mg capsule 08/16 completed Not Available Not Available Not Available oxycodone 5 mg tablet TAKE 1 TABLET BY MOUTH ONCE DAILY active Not Available Not Available No t Available olmesarta n 20 mg tablet TAKE 1 TABLET BY MOUTH ONCE DAILY active Not Available Not Available No t Available Restasis 0.05 % eye drops in a dropperet te Two times a day 08/16 completed Instruct ions: 2 boxes;Fr equency: bid;Alt Frequenc y: ou;Medic ation Descript ion: cycloSPO RINE ophthalm ic; Dosage:1 drop; Route:op hthalmic ; refills: 10; Quantity :1 emulsion Not Available Not Available Not Available Premarin 0.9 mg tablet 08/16 completed Duration : 10 days;Med ication Descript ion: conjugat ed estrogen s; Route:or al; refills: 0; Quantity :21 tablet Not Available Not Available Not Available nitrofura ntoin monohydra te/macroc rystals 100 mg capsule TAKE 1 CAPSULE BY MOUTH EVERY 12 HOURS FOR 5 DAYS 08/28 completed Not Available Not Available Not Available solifenac in 10 mg tablet Take 1 tablet every day by oral route for 90 days. 2024 active Not Available Not Available Not Avai lable Michelle-D 24 Hour 08/28 completed Medicati on Descript ion: fexofena dine-pse udoephed rine; Route:or al; refills: 0 Not Available Not Available Not Available Havrix (PF) 1,440 ADELINE unit/mL intramusc ular syringe 08/16 completed Not Available Not Available Not Available Patanase 0.6 % nasal spray 08/16 completed Medicati on Descript ion: olopatad ine nasal; Route:na fernanda; refills: 0 Not Available Not Available Not Available Vitamin B12 active Not Available Not Available Not Available Vitals Date Recorded Body height Body mass index (BMI) Body weight Provider Name and Address Organization Details Last Updated DateTime 08/28/2025 167.64 cm 28.7 kg/m2 63085.44 g Tye Donnie [facility] 08/28/2025 13:57:09 Date Recorded Body height Body mass index (BMI) Body weight Body temperature Heart rate Systolic And Diastolic Provider Name and Address Organization Details Last Updated DateTime 9 167.64 cm 29.9 kg/m2 99969.6 9 g 97.2 [degF] 92 /min 141/79 mm[Hg] Alllewis Zimmerman [facility] 9 09:28:11 Social History Question Answer Notes LastModified by Organizat ion Details LastModified Time Tobacco Smoking Status Never [facility] 13:53:24 How Much Tobacco Do You Chew? None Information not available 08/16/2019 What Was The Date Of Your Most Recent Tobacco Screening? 04/29/2025 [email or web address] Information not available 04/29/2025 How Much Tobacco Do You Smoke? No Information not available 08/16/2019 Sex: Female Functional Status Question Answer Note LastModified by Organizat ion Details LastModified Time What is your level of alcohol consumption? None Information not available 08/16/2019 Do you or have you ever used smokeless tobacco? [id number] Information not available 08/16/2019 Do you or have you ever used e-cigarettes or vape? Never used electronic cigarettes Information not available 08/16/2019 Mental Status None recorded. Family History Relationship Description Onset Age of this Age Resolved Age Notes LastModified by Organization Details LastModified Time Daughter Disorder of thyroid gland Not available 08/16 13:52:18 Father Family history of malignant neoplasm Not available 08/16 13:52:35 Mother Family history of malignant neoplasm Not available 08/16 13:52:35 Mother Heart disease Not available 08/16 13:52:47 Mother Hypertensive disorder Not available 08/16 13:52:56 Mother Cerebrovascu lar accident Not available 13:53:09 Sister Family history of malignant neoplasm Not available 08/16 13:52:35 Son Diabetes mellitus Not available 08/16 13:53:16 Medical History Condition Response Coronary Artery Disease N Other N Gout N Kidney Stones Y Kidney Cyst N Enlarged Prostate N Heart Arrhythmia N Head Trauma/Injury N Erectile Dysfunction N Emphysema N Sexually Transmitted Disease N Depression N Pneumonia Y Incontinence Y Prostate Problems N Cancer Prostate N Paralysis N Anxiety Disorder N Hemorrhoids N Obesity N Arthritis Y Infertility N Acid Reflux (GERD) Y Hematuria N Cancer Y Stroke N Neck Injury N Previous Radiation Therapy? Y Neurologic Disorder N Kidney Disease N Heart Conditions N Kidney or Bladder Problems N If you get up at night to urinate, how m any times? Y Urinary Problems Y Constipation N Brain Injury N Ulcers N Do you get up at night to urinate? Y Prostate Hypertrophy N Bleeding Disorder N Low Testosterone N Tuberculosis N Previous Chemotherapy? N AIDS/HIV N BPH Y Urinary Tract Infection Y Asthma Y Cardiac Disease N Thyroid Disorder N Hepatitis N PCOS N Colon Cancer N Hernia N Colon/Rectal Disorders N Ostomy N Glaucoma N Pacemaker N Anesthesia Complications N Genitourinary Disease N Radiation Therapy Y Chronic Kidney Disease N Bladder or Kidney Problems Y Back Injury Y High Cholesterol N High PSA N Nervous System Disorder N Liver Disease N Organ Transplant N Dialysis N Allergies/Hayfever Y False Teeth N Chronic Obstructive Pulmonary Disease N Parkinson's Disease N Chemotherapy N Transplant N Anemia N Multiple Sclerosis N Chest Pain N Back Pain Y Proteinuria N Heart Attack (ME) N Mental Illness N Ovarian Cancer N Diabetes N Seizures/Epilepsy N Genitourinary problem(s) N Congestive Heart Failure (CHF) N Kidney Failure N Sleep Apnea N Heart Disease N Bronchitis Y Hypertension Y Gynecological History Statement/Question Response Female Hormone Problem N # of Pregnancies 2 Abnormal Periods N # of Births 2 Could you be now? N Current Control Method hysterectom y Uterus/Ovaries Problem N Obstetrics History GPAL:G 0 P 0 0 0 0 Immunizations Vaccine Type Date Status Note Provider Nam e and Address Organization Details Recorded Time Novel [id number] , all formulations 9 completed Not Available [facility] 08/28/2025 13:04:30 Tdap 8 completed Not Available [facility] 08/28/2025 13:04:30 COVID-19, mRNA, LNP-S, PF, 100 mcg/0.5mL dose or 50 mcg/0.25mL dose 1 completed Not Available [facility] 08/28/2025 13:04:30 Influenza, high-dose, trivalent, PF 1 completed Not Available [facility] 08/28/2025 13:04:30 Influenza, split virus, quadrivalent, PF 2 completed Not Available [facility] 08/28/2025 13:04:30 Influenza, high-dose, trivalent, PF 3 completed [facility] 08/28/2025 13:04:30 RSV, recombinant, protein subunit RSVpreF, adjuvant reconstituted, 0.5 mL, PF 4 completed Not Available [facility] 08/28/2025 13:04:30 zoster recombinant 4 completed Not Available [facility] 08/28/2025 13:04:30 zoster recombinant 4 completed Not Available [facility] 08/28/2025 13:04:30 Influenza, high-dose, trivalent, PF 4 completed Not Available [facility] 08/28/2025 13:04:30 Influenza, high-dose, trivalent, PF 5 completed Not Available [facility] 08/28/2025 13:04:30 Past Encounters Encounter ID Performer Location Encounter Start Date Encounter Closed Date Diagnosis/Indication Diagnosis SNOMED-CT Code Diagnosis ICD10 Code Diagnosis IMO Codes Diagnosis Note [id number] MD DAVID RODARTE III, RD [address] [place] [address] 08/16/2019 13:31:21 08/16/2019 15:27:13 Sensorineural hearing loss of bilateral ears 538798282 H90.3 Bilateral tinnitus 01648 48897 102 H93.13 Dizziness 658665940 R42 She appears to be having recurrent vertigo without an obvious etiology. We would like to have this further evaluated with a VNG. [id number] BAKARI MULLINS RD [address] [place] [address] 08/16/2019 14:00:13 08/16/2019 14:19:25 Dizziness 475330729 R42 Bilateral tinnitus 38372 38520 102 H93.13 Sensorineu ral hearing loss of bilateral ears 219890129 H90.3 [id number] BAKARI MULLINS [facility] [place] [address] 09/30/2019 09:46:40 09/30/2019 12:17:49 Dizziness 093179981 R42 [id number] MD DAVID RODARTE III, RD [address] [place] [address] 10/18/2019 09:22:28 10/18/2019 12:22:22 Dysfunction of vestibular system 608143575 H81.92 - Left Vertigo 460931909 R42 Dizziness 063621238 R42 She appears to be having recurrent vertigo without an obvious etiology. Her VNG did show unilateral weakness on the left side, the etiology is unclear. Sensorineu ral hearing loss of bilateral ears 917091331 H90.3 Bilateral tinnitus 76829 45613 102 H93.13 Allergic rhinitis 045482 04 J30.9 Deviated nasal septum 12 7004893 J34.2 [id number] GOLD Orta, SH[address]LYN [address] [address] [place] [address] 04/29/2025 09:10:24 04/29/2025 10:02:02 Multiple benign melanocytic nevi 497635606 D22.5 - Benign moles seen on exam today - SPF 30 or higher broad-spec trum sunscreen recommende d with re-applica tion every 2 hours - Discussed sun protection measures, including wide-brimm ed hat, sun-protec tive clothing, and avoidance of sun during peak hours of 10am-4pm - Avoid tanning beds as these can increase the chances of all 3 types of skin cancer - Instructed to monitor for changes and to call us for appointmen t with any changing or worrisome lesions Seborrheic keratosis 394 402739 L82.1 - Benign overgrowth s of skin - Hereditary Senile angioma 4515556 I 78.1 - Benign blood vessel growths - Hereditary Solar lentigo 43525839 L 81.4 - Benign brown spots - Sun-induce d Neoplasm o f uncertain behavior of skin 41447138 D48.5 Recommend blade biopsy. Risks, benefit, and procedure discussed with patient. Consent obtained. Discussed the biopsy only takes the top layer of the lesion for testing. This does NOT treat the skin cancer if it is one. Advised they would need to return for more treatment given the type and depth of the skin cancer when the results come in. Multiple a ctinic keratoses 566814812 L57.0 188145 Actinic keratoses are precancero us lesions that may progress to squamous cell carcinoma if untreated. UV light and genetics may increase risk. Treated lesions should blister, scab over, and heal within a few weeks. If treated lesion(s) does not resolve within 1-2 months, patient agrees to follow up for re-evaluat ion. [id number] GOLD Orta, SHERLYN [address] [place] [address] 06/17/2025 11:59:33 06/17/2025 13:16:07 Basal cell carcinoma of upper extremity 702354829 C44.612 [id number] Path #: [id number] 2Site: Right dorsal forearm Pathology discussed with patient.Ph bianca reviewed for site confirmati on An ED&C was recommende d. The risks, alternativ es, and benefits were discussed. A verbal informed consent was discussed and agreed to with patient. Tolerated procedure well. Call if the lesion returns. [id number] MARY BARRIENTOS MD [facility] [address] [place] [address],[address] [place] [address] 08/28/2025 13:03:44 08/28/2025 14:30:10 Recurrent urinary tract infection 071718950 N39.0 716940 - Encourage increased hydration and consider cranberry tablets for UTI prevention . - Prescribe methenamin e for UTI prevention . Overactive urinary bladder [id number] N32.81 [id number] - Consider bladder spasm medication to manage symptoms. - Monitor the impact of indapamide on urinary frequency and adjust treatment as necessary. Kidney stone [id number] N2 0.0 16316 - No current interventi on required as the patient is asymptomat ic. Acute urin dejah tract infection [id number] N39.0 325374 - Encourage increased hydration and consider cranberry tablets for UTI prevention . - Prescribe methenamin e for UTI prevention . Health Concerns Section Related Observation LastModified by Organization Detai ls LastModified Time None Recorded Concern Status LastModified by Organization Details LastModified Time None Recorded Advance Directives Directive None Recorded Payers Insurance Date Sequence Insurance Name Policy Number Policy Hart Covered Member ID Hart Member ID Guarantor Name 09/02/2025 2 [place] [id number] Shamika Horton [id number] Shamika Horton 08/29/2025 1 [place] Shamika Horton [id number] Shamika Horton Notes Date Note Type Note Provider Name and Address Organization Details Recorded Time 10/18/2019 text/html Shamika returns today in follow up of her VNG results. VNG showed left unilateral weakness suggesting left peripheral vestibular involvement. Presence of abnormal random saccades is an isolated finding. APPRENTICE ARCHITECT involvement could not be ruled out. She does have bilateral HF SNHL and tinnitus in both ears. Her episodes of vertigo are random and occur about once per month. Shamika tries to stay physically active. She mentions she does have allergies which she treats with Michelle and Nasonex Nasal spray. MATILDA SPANGLER III, MD [address] [place], [address], [facility] 10/18/2019 12:09:52 04/29/2025 text/html Here for a full body skin examination - last skin check: 08/2020 - Re-establishing- no history of skin cancer- spots of concern today: nose GOLD BAUM APRN [address] [place], [address], [facility] 04/30/2025 10:31:41 06/17/2025 text/html Patient is here for an ED&C -path #: [id number] - location: Right dorsal forearm - bx proven Superficial BCC *Pt is accompanied by *pt also has a spot on her arm right above the area being treated today she would like you to look at GOLD BAUM APRN [address] [place], [address], [facility] 06/18/2025 07:22:39 08/28/2025 text/html The patient is a 75-year-old female presenting with overactive bladder symptoms and recurrent urinary tract infections. She reports increased urinary frequency, urinating every two hours during the day and three times at night, which she attributes to the diuretic indapamide prescribed for hypertension. She experiences urgency but denies any difficulty initiating urination or hematuria. The patient has a history of recurrent urinary tract infections, with the most recent episode occurring about a month ago, characterized by dysuria. She was treated with antibiotics and pyridium, which provided relief. She reports experiencing UTIs every five to six months. The patient has a history of a tension-free vaginal tape (TVT) procedure performed in 2003, which initially provided significant relief from urinary symptoms. She also has a history of hysterectomy and ductal carcinoma in situ of the breast. The patient reports a history of kidney stones approximately 30 years ago, which were managed with a basket extraction procedure. She describes the experience as extremely painful. She has been experiencing sciatica and underwent kyphoplasty in October following a vertebral fracture in September. She has received several steroid injections for pain management, which she believes have contributed to her hypertension. Documentation on this patient encounter was supported using voice-enabled Al technology. The patient consented to recording for the purpose of documenting the encounter. Provider reviewed content of the generated note prior to signature. Not Available Not Available Not Available OBGyn Episode No OBEpisode recorded.
--- OUTSIDE RECORDS SUMMARY | 2025-09-04 14:53 | XMS_ITS | Encounter Summary ---
Author Organization [employer] ([place], [place], [place], [place], [place]) Address [address] [place] [address] Care Team Providers Care Human Factors Ergonomist Name Role Phone Darius Joseph MD Primary Care Provider + [phone] Selin Alex MD Unavailable [phone] Encounter Details Date Type Department Care Team (Late st Contact Info) Description 11/16/2021 Transcribed Document [facility] [place] [address] [place] [address] ProviderShabnam MD [address] [place] [address] [id number] Social History Tobacco Use Types Packs/Day Years Used Date Smoking Tobacco: Never Assessed Comments Unknown Sex and Gender Information Value Date Recorded Sex Assigned at Not on file Legal Sex Female 5:14 PM CDT Gender Identity Not on file Sexual Orientation Not on file documented as of this encounter Miscellaneous Notes * Cerner Conversion Note - Shabnam ProviderMD - 11/16/2021 10:00 AM INSURANCE AGENCY SALES MANAGER [facility] Endo PreOp Summary Primary Physician: PRISCILLA PEARCE MD-GAE Finalized Date/Time: 11/16/21 09:23:11 Pt. Name: SHAMIKA HORTON /Sex: 1950 Female Med Rec #: [id number] Physician: PRISCILLA PEARCE MD-GAE Financial #: [id number] Pt. Type: O Room/Bed: END/ Admit/Disch: 11/16/21 08:37:00 - Institution: [facility] Endo PreOp Case Times Entry 1 In Preop 11/16/21 09:14:00 Ready for Holding n/a Room Patient Ready for n/a Surgery Patient Out of Preop 11/16/21 09:22:00 Patient Out of n/a Holding Room Last Modified By: Leah Zuniga RN 11/16/21 09:23:09 Finalized By: Leah Zuniga, RN Document Signatures Signed By: Leah Zuniga RN 11/16/21 09:23 documented in this encounter Plan of Treatment Upcoming Encounters Date Type Department Care Team (Late st Contact Info) Description 06/03/2026 9:45 AM EDT Appointment [address] [place] [address] documented as of this encounter Visit Diagnoses Not on filedocumented in this encounter Care Teams Human Factors Ergonomist Relationship Specialty Start Date End Date Darius Joseph MD [address] [place] [address] [place] [address] PCP - General Adolescent Medicine 05/17/23 Selin Alex MD [address] [place], [place] [id number] Consulting Physician Orthopedic Surgery - Hand 02/10/25 documented as of this encounter
--- OUTSIDE RECORDS SUMMARY | 2025-09-04 14:53 | XMS_ITS | Encounter Summary ---
Author Organization [employer] ([place], [place], [place], [place], [place]) Address [address] [place] [address] Care Team Providers Care Slurry Man Name Role Phone Darius Joseph MD Primary Care Provider + [phone] Selin Alex MD Unavailable [phone] Encounter Details Date Type Department Care Team (Late st Contact Info) Description 11/16/2021 Transcribed Document [facility] [place] [facility] [place] [address] ProviderShabnam MD [address] [place] [address] Social History Tobacco Use Types Packs/Day Years Used Date Smoking Tobacco: Never Assessed Comments Unknown Sex and Gender Information Value Date Recorded Sex Assigned at Not on file Legal Sex Female 5:14 PM CDT Gender Identity Not on file Sexual Orientation Not on file documented as of this encounter Miscellaneous Notes * Cerner Conversion Note - Historical ProviderMD - 11/16/2021 9:16 AM CAKE WRAPPER Pre Procedure Adult Entered On: 11/16/2021 9:18 EST Performed On: 11/16/2021 9:16 EST by Leah Zuniga RN Height and Weight, Clinical Dosing Height Source : Stated Height Entry Format : [place] Height, Feet : 5 ft(Converted to: 152 cm, 60 Inch) Height, Inches : 6 Inch(Converted to: 0 ft 6 Inch, 15.24 cm) Clinical Height : 167.64 cm Weight Source : Standing scale Weight Entry Format : [place] Clinical Dosing Weight : 86.02 kg Weight, Pounds : 189 lb Weight, Ounces : 4 oz Body Surface Area (BSA) : 1.96 m2 Body Mass Index : 30.6 kg/m2 (HI) [place] Body Weight : 59 kg Leah Zuniga RN - 11/16/2021 9:16 EST Health Histories Smoking Status : Never (less than 100 in lifetime; none in last 30 days) Smokeless Tobacco Status : Never Leah Zuniga RN - 11/16/2021 9:16 EST Social History (As Of: 11/16/2021 09:18:26 EST) Tobacco: Use in Last 12 Months: No. Smoking Status Never smoker. (Last Updated: 04/16/2015 09:47:28 EDT by SOHAIL LANDAVERDE RN) Alcohol: Alcohol Use History No. (Last Updated: 04/16/2015 09:47:17 EDT by SOHAIL LANDAVERDE, CHLOÉ) Substance Abuse: Drug Use Hx: No. (Last Updated: 07/31/2018 09:59:26 EDT by Yasmin Sullivan RN) Nutrition/Health: Caffeine intake amount: 1. (Last Updated: 04/16/2015 09:47:22 EDT by SOHAIL LANDAVERDE, CHLOÉ) Infectious Disease History Does patient have symptoms of COVID-19? : No Has the Patient Been Tested for COVID-19 in the last 14 days? : PreProcedure/NON-PUI COVID-19 Testing Does the Patient state known exposure to a COVID-19 positive case in the last 14 days? : No Patient Vaccinated for COVID-19 : Fully vaccinated Leah Zuniga RN - 11/16/2021 9:16 EST Infectious Disease Risk Screening Grid Cough < 2 wks of unknown origin : NO Cough > 2 weeks : NO Blood in Sputum : NO Fever or self-reported Fever : NO Rash of unknown origin : NO Headache : NO Stiff neck : NO Night Sweats : NO Unexplained Weight Loss : NO Diarrhea (3 episode per day) : NO Leah Zuniga RN - 11/16/2021 9:16 EST Physical contact outside [place] in the last 30 days : No Hospitalized in Foreign Country : No Infectious Disease History : Chicken pox/Shingles, Influenza, Measles INF Disease TB Screening Calc : 0 INF Disease Recent Travel Calc : 0 Leah Zuniga RN - 11/16/2021 9:16 EST COVID19 PreProcedure Screening Is this an Emergent or Add on Procedure? : No Date PreProcedure COVID-19 test known? : Yes Date of PreProcedure COVID-19 : 11/12/2021 EST Has patient been isolated since the test : Yes Exposed to COVID19 symptoms since test? : No Leah Zuniga RN - 11/16/2021 9:16 EST Anesthesia/Transfusion History Family History of Anesthesia Reaction : No prior transfusion(s) Transfusion History : Prior anesthesia reaction Type of Anesthesia Reaction : Excessive nausea/vomiting Family History of Anesthesia Reaction : None Leah Zuniga RN - 11/16/2021 9:16 EST Functional Assessment Living Situation : Home Current Home Treatments : None Leah Zuniga RN - 11/16/2021 9:16 EST [place] Suicide Severity Rating Scale (C-SSRS) CSSRS Past Month Wish to be : No CSSRS Past Month Suicidal Thoughts : No CSSRS Lifetime Suicide Behavior : No Suicide Severity Rating Score : 0 Suicide Severity Rating : No Additional Care Required at this time Leah Zuniga RN - 11/16/2021 9:16 EST Psychosocial History Currently in Unsafe Situation : No Leah Zuniga RN - 11/16/2021 9:16 EST Advance Directive Patient has Advance Directive *Q : No, patient refuses Advance Directive information Leah Zuniga RN - 11/16/2021 9:16 EST General Info Want Family/Rep/Phys Notified of Admit : No Emergency Contact #1 : Emergency Contact #1 Phone Number : Emergency Contact #1 Relationship : Emergency Contact #2 : Emergency Contact #2 Phone Number : Emergency Contact #2 Relationship : Primary Language : Sammarinese Preferred Communication Mode : Verbal Communication Barrier : None Mems Integration Engineer Needed : No Leah Zuniga RN - 11/16/2021 9:16 EST Sleep Apnea Risk Assmt Hx of Obstructive Sleep Apnea Diagnosis : No Snore Loudly : No Tired, Fatigued, or Sleepy During Day : No Observed Stopping Breathing During Sleep : No Have/Are Being Treated for Hypertension : No BMI Greater Than 35 kg/m2 : No Age over 50 Years Old : Yes Neck Circumference Greater Than 40 cm : No Gender Male : No STOP-BANG Sleep Apnea Risk Level Score : 1 Leah Zuniga RN - 11/16/2021 9:16 EST Jai Scale Jai Sensory Perception : No impairment Jai Moisture : Rarely moist Jai Activity : Walks frequently Jai Mobility : No limitation Jai Nutrition : Excellent Jai Friction and Shear : No apparent problem Jai Score : 23 Leah Zuniga RN - 11/16/2021 9:16 EST Fall Risk Scales ABCs Fall Injury Risk Identification : None THOMPSON Hx Falls Immediate/Within 3 Months : No Thompson Secondary Diagnosis : No THOMPSON Use of Ambulatory Aid : None THOMPSON IV Therapy or IV Access : Yes Thompson Gait/Transferring : Normal, bedrest, immobile Thompson Mental Status : Oriented to own ability Thompson Fall Risk Score : 20 THOMPSON Fall Scale Risk Level : 0-24 Low Risk [place] Fall Interventions : Adequate lighting, Wheels locked Leah Zuniga RN - 11/16/2021 9:16 EST Valuables and Belongings Valuables and Belongings : Clothing Clothing : Common streetwear Clothing Disposition : Bedside Leah Zuniga RN - 11/16/2021 9:16 EST Electronically signed by [facility] Conversion Pack Puller Cerner at 02/17/2023 1:08 PM CDT documented in this encounter Plan of Treatment Upcoming Encounters Date Type Department Care Team (Late st Contact Info) Description 06/03/2026 9:45 AM EDT Appointment [address] [place] [address] documented as of this encounter Visit Diagnoses Not on filedocumented in this encounter Care Teams Slurry Man Relationship Specialty Start Date End Date Darius Joseph MD [address] [place] [address] PCP - General Adolescent Medicine 05/17/23 Selin Alex MD [address] [place], [place] [id number] Consulting Physician Orthopedic Surgery - Hand 02/10/25 documented as of this encounter
--- OUTSIDE RECORDS SUMMARY | 2025-09-04 14:53 | XMS_ITS | Clinical Summary ---
Author Organization [facility] Address [address] [place] [id number] Phone Care Team Providers Care Biscuit Machine Operator Name Role Phone CHARLES PARK, AGGIE Primary Care Provider [phone] Ismael PARK, Alvarado Reagan Unavailable [phone] Reason for Visit and Chief Complaint The Chief Complaint is: Low back pain radiating to right hip Problems Includes: Problems addressed during this encounter and other active Problems Current Visit Onset Date Resolved Date Provider Donita suarez Status Lower Back Pain 12/12/2022 Alvarado Guevara MD Act julien Last Documented On 3 8:57AM ; [facility] Joint Pain Hip Right 12/12/2022 Alvarado Mcneal D Active Last Documented On 3 9:24AM ; [facility], [facility] Plan of Treatment Fall Risk Assessment: This patient has been identified as a fall risk. Balance/gait along with postural blood pressure, vision and home fall hazards have been assessed. Medications have been reviewed, and recommendations made with regard to contributing factors for future falls. Plan of care: Consideration of vitamin D supplementation along with balance and strength training with consideration for formal physical therapy has been discussed with the patient. - Last Documented On 12/12/2022 11:54AM ; [facility] Pending Tests Order Diagnosis Results Due Ordering P rovider Therapy - Physical Therapy Lumbar 12/12/22 Alvarado Guevara MD Last Documented On 3 11:54AM ; [facility] Instructions to patient Lose weight Last Documented On 3 9:01AM ; [facility] Assessments Includes: Assessments from this encounter No Assessments Recorded Instructions Includes: Instructions from this encounter Instructions to patient Lose weight Last Documented On 3 9:01AM ; [facility] Medical Equipment - Implanted Devices Includes: Current Devices No Medical Equipment Recorded Medications Includes: Medications discussed during this encounter and other current Medications New / Renewed during this visit Alvarado Guevara MD on 12/12/2022 Celecoxib 100 MG Oral Capsule Provider: Alvarado Guevara MD 30 day supply: 60 capsule, 2 refills Diagnosis: Take 1 tablet by mouth every 12 hours Pharmacy: [facility] [address] , [facility], [address] - Last Documented On 3 10:14AM By Jill Nelson ; [facility] Current Medications (continue as prescribed) Michelle Allergy 60 MG Oral Tablet 12/12/2022 Provide r: Diagnosis: Last Documented On 3 9:20AM By Jill Nelson ; [facility] Celecoxib 200 MG Oral Capsule 12/07/2022 Provider: AGGIE SOTO MD Diagnosis: Last Documented On 3 8:57AM By Bharath Christianson ; [facility] Medications Administered Includes: Administered Medications from this encounter No Administered Medications Recorded Vital Signs Includes: Vital Signs from this encounter Vital Name 12/12/2022 09:23A Height (in) 66 Weight (lb) 180 Body Mass Index 29.1 Body Surface Area 1.9 Last Documented: On 12/12/2022 9:24AM ; [facility] Results Includes: Results discussed during this encounter No Results Recorded For Specified Dates History of Present Illness Includes: History of Present Illness from this encounter HPI Shamika Horton is a 72 year old female. - Symptoms heat makes pain better bending makes pain worse. - Allergy list reviewed - Problem list reviewed - Medication list reviewed - Patient pain level from 1-10: 5 - History of Home Exercise - No previous treatment. Medications used for this condition: Social History Description Last Updated Tobacco non-user 12/12/2022 Last Documented On 3 11:54AM ; [facility] Caffeine use 12/12/2022 Last Documented On 3 11:54AM ; [facility] Exercising regularly 12/12/2022 Last Documented On 3 11:54AM ; [facility] No recent change in diet 12/12/2022 Last Documented On 3 11:54AM ; [facility] Not a current smoker. 12/12/2022 Last Documented On 3 11:54AM ; [facility] Not using alcohol 12/12/2022 Last Documented On 3 11:54AM ; [facility] Not using drugs 12/12/2022 Last Documented On 3 11:54AM ; [facility] Smoking Status Unknown Procedures and Surgical History Includes: Procedures from this encounter Procedures Code Diagnosis Performing Provider Service L ocation Service Date use of tobacco assessment performed 1000F Last Documented On 3 9:01AM ; [facility] patient screened for future fall risk: documentation of any fall with injury in past year 1100F Last Documented On 3 9:01AM ; [facility] an MRI was performed [facility] [id number] Last Documented On 3 8:59AM ; [facility] Surgical History Last Updated History of appendectomy 12/12/2022 Last Documented On 3 11:54AM ; [facility] History of hysterectomy 12/12/2022 Last Documented On 3 11:54AM ; [facility] Medical History Includes: Medical History addressed during this encounter Description Last Updated History of arthritis 12/12/2022 Last Documented On 3 11:54AM ; [facility] History of History of Cancer 12/12/2022 Last Documented On 3 11:54AM ; [facility] History of osteoporosis 12/12/2022 Last Documented On 3 11:54AM ; [facility] Family History Includes: Family History addressed during this encounter Description Last Updated Diabetes mellitus 12/12/2022 Last Documented On 3 11:54AM ; [facility] Family history of cancer 12/12/2022 Last Documented On 3 11:54AM ; [facility] Family history of heart disease 12/12/19 23 Last Documented On 3 11:54AM ; [facility] Family history of rheumatoid arthritis 0 12/12/2022 Last Documented On 3 11:54AM ; [facility] Family history of thromboembolic disease 12/12/2022 Last Documented On 3 11:54AM ; [facility] Stroke / Seizures 12/12/2022 Last Documented On 3 11:54AM ; [facility] Review of Systems Includes: Review of Systems from this encounter Systemic: Not feeling tired and no recent weight loss. Recent weight gain. Head: No headache and no sinus pain. Eyes: No vision problems. Cataracts. No Glasses/Contacts and no Glaucoma. Otolaryngeal: Hearing loss. No tinnitus. Cardiovascular: No chest pain or discomfort, no palpitations, no Hypertension, and no High Cholesterol. Pulmonary: No daytime asthma symptoms and no chronic cough. No wheezing. Gastrointestinal: No heartburn and no abdominal pain. No Indigestion, no Acid Reflux, no Peptic Ulcer, no GI Stomach Bleed, and no Ulcers. Endocrine: No hot flashes, no muscle weakness, no Diabetes, no Hypothyroid, and no Hyperthyroid. Hematologic: No easy bleeding. A tendency for easy bruising. No Anemia. Musculoskeletal: Arthritis and lower back pain. No soft tissue swelling and no localized joint pain. Neurological: No dizziness, no convulsions, and no numbness. Psychological: No anxiety, no emotional lability, no depression, and no insomnia. Not crying for no reason. Skin: No dry skin. No Ulcers, no Scars, and no rash. Allergic and Immunologic: Complaint of seasonal allergic reaction. Mental Status Includes: Mental Status from this encounter Description No anxiety Functional Status Includes: Functional Status from this encounter No Functional Status Recorded Physical Exam Includes: Physical Exam from this encounter Allergies Includes: Active Allergies No Known Allergies Encounters Encounter Provider Location Date Check-In Time Check-Out Time Diagnosis Physician Specified Alvarado Guevara MD [facility] 12/12/19 23 8:35AM 10:08AM Insurance Includes: Active Insurance Policies Plan Name Member ID Group # Subscriber Relationship Effect julien Dates 1 - Medicare Part B [facility] [id number] Shamika Horton Self 2 - [facility] [id number] Shamika Horton Self Clinical Notes Includes: Clinical Notes from this encounter * Progress note Date Encounter Last Documented by 12/12/2022 Physician Specified Olivier ayala on 12/12/2022; 11:54 AM, Alvarado Guevara MD; [facility] Active Problems & Conditions - Joint Pain in the Right Hip - Lower Back Pain Chief Complaint The Chief Complaint is: Low back pain radiating to right hip. Referred Here Referred by PCP. History of Present Illness Shamika Horton is a 72 year old female. - Symptoms heat makes pain better bending makes pain worse. - Allergy list reviewed - Problem list reviewed - Medication list reviewed - Patient pain level from 1-10: 5 - History of Home Exercise - No previous treatment. Medications used for this condition: Current Medication - Michelle Allergy 60 MG Oral Tablet take as directed 0 days, 0 refills - Celecoxib 200 MG Oral Capsule 10 days, 0 refills Past Medical/Surgical History Diagnoses: History of Cancer. Osteoporosis. Arthritis Surgical: - Appendectomy - Hysterectomy Social History Not a current smoker. Current diet: No recent change in diet. Caffeine use: Caffeine use. Tobacco use: Tobacco non-user. Alcohol: Not using alcohol. Drug Use: Not using drugs. Habits: Exercising regularly. Allergies - No Known Allergies Family History Cancer Heart disease Stroke / Seizures Diabetes mellitus Thromboembolic disease Rheumatoid arthritis Review Of Systems Systemic: Not feeling tired and no recent weight loss. Recent weight gain. Head: No headache and no sinus pain. Eyes: No vision problems. Cataracts. No Glasses/Contacts and no Glaucoma. Otolaryngeal: Hearing loss. No tinnitus. Cardiovascular: No chest pain or discomfort, no palpitations, no Hypertension, and no High Cholesterol. Pulmonary: No daytime asthma symptoms and no chronic cough. No wheezing. Gastrointestinal: No heartburn and no abdominal pain. No Indigestion, no Acid Reflux, no Peptic Ulcer, no GI Stomach Bleed, and no Ulcers. Endocrine: No hot flashes, no muscle weakness, no Diabetes, no Hypothyroid, and no Hyperthyroid. Hematologic: No easy bleeding. A tendency for easy bruising. No Anemia. Musculoskeletal: Arthritis and lower back pain. No soft tissue swelling and no localized joint pain. Neurological: No dizziness, no convulsions, and no numbness. Psychological: No anxiety, no emotional lability, no depression, and no insomnia. Not crying for no reason. Skin: No dry skin. No Ulcers, no Scars, and no rash. Allergic and Immunologic: Complaint of seasonal allergic reaction. Physical Findings - Vitals taken 12/12/2022 09:23 am Height 66 in Weight 180 lbs Body Mass Index 29.1 kg/m2 Body Surface Area 1.9 m2 Standard Measurements: - Patient was overweight. Previous Tests Imaging: MRI Scan: An MRI was performed [facility]. Available previous imaging studies were reviewed Available previous history reviewed Counseling/Education - Lose weight Plan StartCited - Other Therapy/Physical Therapy: Lumbar Instructions: See PT order attached Celecoxib 100 MG capsule Take 1 tablet by mouth every 12 hours, 30 days, 2 refills EndCited Fall Risk Assessment: This patient has been identified as a fall risk. Balance/gait along with postural blood pressure, vision and home fall hazards have been assessed. Medications have been reviewed, and recommendations made with regard to contributing factors for future falls. Plan of care: Consideration of vitamin D supplementation along with balance and strength training with consideration for formal physical therapy has been discussed with the patient. Notes This dictation was done with voice recognition software and may contain errors and omissions. Patient is here with complaints of low back pain has been going on for several years. She is not had any treatment for this. Other than Celebrex which did give her some relief. She only got 10 days prescription for that. She has good strength in both lower extremities. She can touch her toes and has normal gait. Sensations grossly intact palpable pulses good skin turgor. Her MRI shows some mild facet arthropathy at L4-5. I believe this is likely causing her pain. Recommend trying an injection at this level as well as a home exercise program physical therapy and will continue with the Celebrex. We will see her back as needed. She does not need back surgery. Practice Management Use of tobacco assessment performed and patient screened for future fall risk documentation of any fall with injury in past year. Care Team - AGGIE SOTO MD - [employer] Health Reminders - Assess BMI satisfied 12/12/2022. - Assess Tobacco Use satisfied 12/12/2022.
--- OUTSIDE RECORDS SUMMARY | 2025-09-04 14:53 | XMS_ITS | Clinical Summary ---
Author Organization [facility] Address [address] [place] [address] Care Team Providers Care Anesthesiology Physician Name Role Phone Darius Joseph MD Primary Care Provider Social History Tobacco Use Types Packs/Day Years Used Date Smoking Tobacco: Never Assessed Abuse Screen Answer Date Recorded Unsafe at Home or Work/School Not on file Feels Threatened by Someone? Not on file 06/2023 Does Anyone Keep You from Co ntacting Others or Doint Things Outside the Home? Not on file 08/07/2023 Physical Sign of Abuse Present Not on file 1 Housing Stability Answer Date Recorded Current Living Arrangements Not on file 06/2023 Potentially Unsafe Housing Conditions Not on aidan e 08/07/2023 Family and Community Support Answer Ojhnnie e Recorded Help with Day-to-Day Activities Not on file 08/07/2023 Lonely or Isolated Not on file 08/07/2023 Employment Answer Date Recorded Do you want help finding or keeping work or a beth b? Not on file 08/07/2023 Disabilities Answer Date Recorded Concentrating, Remembering, or Making Decisions Difficulty Not on file 08/07/2023 Doing Errands Independently Difficulty Not on fi le 08/07/2023 Education Answer Date Recorded Help with school or training? Not on file Preferred Language Not on file 08/07/2023 Comments Unknown Sex and Gender Information Value Date Recorded Sex Assigned at Not on file Legal Sex Female 11:22 AM EDT Gender Identity Not on file Sexual Orientation Not on file Plan of Treatment Health Maintenance Due Date Last Done Comments DXA SCAN 1950 Pneumococcal Vaccine 50+ (1 of 1 - PCV) 1999 ZOSTER VACCINE (1 of 2) 1999 ANNUAL PHYSICAL 10/11/2020 HEPATITIS C SCREENING 10/11/2020 RSV Vaccine - Adults (1 - 1- dose 75+ series) 2024 INFLUENZA VACCINE 05/30/2025 09/04/2023, , 08/17/2021 COVID-19 Vaccine (2 - 2024-2 6 season) 2025 01/28/2021 TDAP/TD VACCINES (2 - Td or Tdap) 04/14/2028 018, 04/14/2018 MAMMOGRAM Discontinued 05/17/2023, 04/29, 05/16/2022, Additional history exists Insurance MEDICARE A & B [facility] Care Teams Anesthesiology Physician Relationship Specialty Start Date End Date Darius Joseph MD [address] [facility] [address] [place] [address] PCP - General Adolescent Medicine 10/11/20
--- OUTSIDE RECORDS SUMMARY | 2025-09-04 14:53 | XMS_ITS | Encounter Summary ---
Author Organization [employer] ([place], [place], [place], [place], [place]) Address [address] [place] [address] Care Team Providers Care Linux Vmware Administrator Name Role Phone Darius Joseph MD Primary Care Provider + [phone] Selin Alex MD Unavailable [phone] Encounter Details Date Type Department Care Team (Late st Contact Info) Description 02/25/2019 Transcribed Document [facility] Family Medicine Formerly [facility], [facility] [place] [address] ProviderShabnam MD [address] [place] [address] Social History Tobacco Use Types Packs/Day Years Used Date Smoking Tobacco: Never Assessed Comments Unknown Sex and Gender Information Value Date Recorded Sex Assigned at Not on file Legal Sex Female 5:14 PM CDT Gender Identity Not on file Sexual Orientation Not on file documented as of this encounter Miscellaneous Notes * Cerner Conversion Note - Historical ProviderMD - 02/25/2019 10:07 AM CDT [facility] Follow Up Note RE: ALEXI HORTONLEY : 1950 Date of Service: 02/25/2019 Referring Provider: JELENA NG (Jack) Reason for Referral: DCIS, observation only CC: breast tenderness Cancer History: 1) Routine screening mammogram December 28, 2015. This showed new microcalcifications in the upper outer quadrant of the right breast. She had been very compliant and up-to-date with mammograms. 2) Right breast core biopsy of this area was done on January 11, 2016. 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 No invasive carcinoma was seen. Estrogen receptor was negative, Progesterone receptor negative. 3) Right breast lumpectomy with additional inferior lateral margin taken January 26, 2016. Pathology shows high-grade ductal carcinoma in situ, solid and cribriform type. Tumor extended to within 1 mm of the inferior and superficial margins. Additional inferior lateral margin showed high-grade ductal carcinoma in situ. Inked margin was negative for tumor. 4) R breast XRT 03/01?03/22/16. 5) Arimidex daily 04/14; stopped after a few weeks due to joint pain, weight gain, dyspnea. We did not restart given that DCIS was ER-/AR- HPI: Ms. Horton returns for follow-up for breast cancer. She reports bilateral breast tenderness from recent mammogram. Denies chest pain, dyspnea, new breast changes, diarrhea, constipation. Full ADLs. ECOG PS 1. Past Medical History: Right breast DCIS as above, seasonal allergies, kidney stones, anxiety Was on hormone replacement therapy from time of total hysterectomy in 1991 until November 2015 when she stopped due to insurance no longer covering the medication , first child was born when she was 35 Past Surgical History: Total abdominal hysterectomy bilateral salpingo-oophorectomy 1991 for endometriosis and menorrhagia, tonsillectomy, appendectomy, cholecystectomy, hand and foot surgery, dental surgeries Allergies: No Known Drug Allergies wheat Unknown Unknown Medication List: Michelle (Fexofenadine) [Fexofenadine (Michelle)] 0 Oral As Directed Multi Vitamin (multivit &minerals-ferrous fum) [multivit &minerals-ferrous fum (Multi Vitamin)] 1 Tablet Oral Daily Social History: She is . She is a retired teacher. She has her masters degree. They live in [facility]. She never been a smoker. Denies alcohol or illicit drug use. Family History: Father had myelodysplastic syndrome transformed into acute leukemia. He of the disease in his 80s. Her mother had colon cancer and from a severe stroke following her colon cancer surgery. Patient's brother may have had bladder cancer, was an alcoholic. Patient's sister was diagnosed with a stage IV colon cancer around age 50 and his surviving 12 years after her initial diagnosis. No family history of other breast cancer. No ovarian, pancreatic, gastric, prostate cancer in the family. Review of Systems: Full review of 14 systems negative except as per hpi Vital Signs: Vital Signs & Weight; Pulse - 92, 93; B/P - 143/78, 147/73; Pulse Ox - 98%RA, 98%RA; Height (in) (inch) - 65.98; Weight (lb) (lb) - 184.97, 184.86; BSA(D) (m*2) - 1.93, 1.93 Physical Examination: Gen-NAD, alert and oriented x3. Eyes-PER, EOMI, no scleral icterus. ENT-Oropharynx clear without lesions or exudate. Neck-Supple without JVD or thyromegaly. Lymph-No cervical, supraclavicular, or axillary adenopathy. CV-RRR, no murmurs, rubs or gallops. Lungs-CTAB, no wheezes, rales, or rhonchi. Abd-soft, ntnd, positive bowel sounds, no mass, no hepatosplenomegaly. Extremities-no cyanosis, clubbing, or edema. 2+ distal pulses throughout. Skin-No rashes or jaundice. Minimal rash over her hands consistent with poison salome exposure Heme-No petechiae or ecchymoses. Neuro-Normal speech and gait. Strength and sensation grossly intact upper and lower extremities. Psych-Normal mood and affect. Breast exam--both breast soft without mass or skin changes. No palpable axillary adenopathy bilaterally. Right breast lumpectomy incision well-healed. Tenderness over right UOQ near lumpectomy incision. Laboratory: Date Time Date Time j Radiology: 1) Diagnostic mammogram of the right breast on January 05, 2016 that showed calcifications in the right upper outer quadrant spreading over a 4 x 4 centimeter area. 2) DEXA scan 02/05/16 c/w with osteopenia. T score -2.3 at left femur, -1.7 at lumbar spine. Patient refused Prolia or Zometa. 3) Bilateral diagnostic mammogram on 02/15/18. BI-RADS 2: Benign finding. 4) DEXA on 02/15/18. Osteopenia. Spine: T-score -1.7. Hip: T-score -2.4. 5) MRI lumbar spine wo contrast on 12/22/17. Negative MRI. Small T2 hypointensity in let kidney?may be due to hemorrhagic cyst. 6) Bilateral diagnostic mammogram on 02/21/19. BI-RADS 2: Benign finding. 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 ER negative, AR negative. Right breast lumpectomy January 26, 2016. R breast XRT completed 03/22/16. She could not tolerate Arimidex and stopped after taking only one week. not planning to start any further adjuvant endocrine therapy. She did not have invasive cancer and DCIS was hormone receptor negative. We'll continue with close follow-up and monitoring with exam including breast exam every 6 months. Nothing to suggest cancer recurrence today. 2) DEXA on 02/15/18. Osteopenia. Spine: T-score -1.7. Hip: T-score -2.4. Discussed using either Zometa or Prolia to decrease risk of bone loss and fracture, she declined both. She is taking calcium and Vitamin D. Encouraged weight bearing exercise. Repeat DEXA in 2 years. She is not on AI. 3) Left sided back pain. Referred to PT. 4) Recommended that she continue to avoid all forms of exogenous Estrogen given her breast cancer history. 5) Breast imaging. Bilateral diagnostic mammogram on 02/21/19. BI-RADS 2: Benign finding. Repeat 12 months 6) Follow-up. Observation alone after lumpectomy +XRT for ER-/AR- DCIS. In remission. Will see her back in 1 year per her request with breast exam with DEXA prior. Please call with any additional questions or concerns that may arise. CC: Darius Joseph JOHN R (Jack) Diagnosis List: [ICD10] C50.411 Malignant neoplasm of upper-outer quadrant of right female breast Z79.899 Other technician terminal and repeater (current) drug therapy R06.00 Dyspnea, unspecified M85.80 Other specified disorders of bone density and structure, unspecified site [facility] MD Dina Washburn MD [address], [address], [place] [address] 1 Electronically signed by Interface, [facility] Conversion Transitions Rn Care Coordinator Cerner at 02/17/2023 1:14 PM CDT documented in this encounter Plan of Treatment Upcoming Encounters Date Type Department Care Team (Late st Contact Info) Description 06/03/2026 9:45 AM EDT Appointment [facility] [address] [place] [address] documented as of this encounter Visit Diagnoses Not on filedocumented in this encounter Care Teams Linux Vmware Administrator Relationship Specialty Start Date End Date Darius Joseph MD [address] [place] [address] [place] [address] PCP - General Adolescent Medicine 05/17/23 Selin Alex MD [address] [place] [address] Consulting Physician Orthopedic Surgery - Hand 02/10/25 documented as of this encounter
--- OUTSIDE RECORDS SUMMARY | 2025-09-04 14:53 | XMS_ITS | Encounter Summary ---
Author Organization [employer] ([place], [place], [place], [place], [place]) Address [address] [place] [address] Care Team Providers Care Psychologist Private Practice Name Role Phone Darius Joseph MD Primary Care Provider + [phone] Selin Alex MD Unavailable [phone] Encounter Details Date Type Department Care Team (Late st Contact Info) Description 11/16/2021 Transcribed Document [facility] Family Medicine [address] [place] [address] ProviderShabnam MD [address] [place] [address] [id number] Social History Tobacco Use Types Packs/Day Years Used Date Smoking Tobacco: Never Assessed Comments Unknown Sex and Gender Information Value Date Recorded Sex Assigned at Not on file Legal Sex Female 5:14 PM CDT Gender Identity Not on file Sexual Orientation Not on file documented as of this encounter Miscellaneous Notes * Cerner Conversion Note - Shabnam ProviderMD - 11/16/2021 9:38 AM CONCHE LOADER AND UNLOADER [facility] Endo IntraOp Summary Primary Physician: PRISCILLA PEARCE MD-GAE Finalized Date/Time: 11/16/21 09:57:39 Pt. Name: CATHREINE HORTON /Sex: 1950 Female Med Rec #: [id number] Physician: PRISCILLA PEARCE MD-GAE Financial #: [id number] Pt. Type: O Room/Bed: END/ Admit/Disch: 11/16/21 08:37:00 - Institution: [facility] Endo - Case Attendance Entry 1 Entry 2 Entry 3 Case Attendee PRISCILLA PEARCE MD-GABBI BERRIOS, RN Yonny Quiroga, RN-PATIENT CARE BEDSIDE NON-EXEMPT Role Performed Surgeon/Proceduralist, Warp Drawer, First Warp Drawer, Second First Time In 11/16/21 09:33:00 11/16/21 08:29:00 11/16/21 08:29:00 Time Out 11/16/21 09:58:00 11/16/21 09:58:00 11/16/21 09:58:00 Procedure Colonoscopy, Colon Colonoscopy, Colon Colonoscopy, Colon Polypectomy Polypectomy Polypectomy Other Attendee Superficial Wound Closed By: Last Modified By: Yonny Quiroga Manus, David, Manus, David RN-PATIENT CARE BEDSIDE RN-PATIENT CARE BEDSIDE RN-PATIENT CARE BEDSIDE NON-EXEMPT 11/16/21 NON-EXEMPT 11/16/21 NON-EXEMPT 11/16/21 09:55:39 09:55:39 09:55:39 Entry 4 Entry 5 Entry 6 Case Attendee MatthewRossi kleinhan, Patient TERESA AMAYA, CHRISTOPHER DIAZ, Enroute Controller I MD-ANS Role Performed Scrub, First SECOND MATE/Nurse Assembler Faucets Anesthesiologist of Record Time In 11/16/21 08:29:00 11/16/21 08:29:00 11/16/21 08:29:00 Time Out 11/16/21 09:58:00 11/16/21 09:58:00 11/16/21 09:58:00 Procedure Colonoscopy, Colon Colonoscopy, Colon Colonoscopy, Colon Polypectomy Polypectomy Polypectomy Other Attendee Superficial Wound Closed By: Last Modified By: Yonny Quiroga Manus, David, Manus, David, RN-PATIENT CARE BEDSIDE RN-PATIENT CARE BEDSIDE RN-PATIENT CARE BEDSIDE NON-EXEMPT 11/16/21 NON-EXEMPT 11/16/21 NON-EXEMPT 11/16/21 09:55:39 09:55:39 09:55:39 [facility] Endo - Case Attendance Audit 11/16/21 09:55:39 Diversity Manager: [id number] Modifier: [id number] <+> Time Out 1 <*> Procedure Colonoscopy, Colon Polypectomy 2 <+> Time Out 2 <*> Procedure Colonoscopy, Colon Polypectomy 3 <+> Time Out 3 <*> Procedure Colonoscopy, Colon Polypectomy 4 <+> Time Out 4 <*> Procedure Colonoscopy, Colon Polypectomy 5 <+> Time Out 5 <*> Procedure Colonoscopy, Colon Polypectomy 6 <+> Time Out 6 <*> Procedure Colonoscopy, Colon Polypectomy 11/16/21 09:51:58 Diversity Manager: [id number] Modifier: [id number] 1 <*> Procedure Colonoscopy 2 <+> Time In 2 <*> Procedure Colonoscopy 3 <+> Time In 3 <*> Procedure Colonoscopy 4 <+> Time In 4 <*> Procedure Colonoscopy 5 <+> Time In 5 <*> Procedure Colonoscopy 6 <+> Time In 6 <*> Procedure Colonoscopy 11/16/21 09:35:03 Diversity Manager: [id number] Modifier: [id number] 1 <+> Time In 1 <*> Procedure Colonoscopy <+> 2 Case Attendee <+> 2 Role Performed <+> 2 Procedure <+> 3 Case Attendee <+> 3 Role Performed <+> 3 Procedure <+> 4 Case Attendee <+> 4 Role Performed <+> 4 Procedure <+> 5 Case Attendee <+> 5 Role Performed <+> 5 Procedure <+> 6 Case Attendee <+> 6 Role Performed <+> 6 Procedure [facility] Endo - Case times Entry 1 Patient In Room Time 11/16/21 08:29:00 Out Room Time 11/16/21 09:58:00 Anesthesia Start Time 11/16/21 08:29:00 Stop Time 11/16/21 09:58:00 Surgery / Procedure Times Start Time 11/16/21 09:38:00 Stop Time 11/16/21 09:55:00 Last Modified By: Yonny Quiroga RN-PATIENT CARE BEDSIDE NON-EXEMPT 11/16/21 09:55:35 [facility] Endo - Case times Audit 11/16/21 09:55:35 Diversity Manager: [id number] Modifier: [id number] <+> 1 Out Room Time <+> 1 Stop Time <+> 1 Stop Time 11/16/21 09:39:11 Diversity Manager: [id number] Modifier: [id number] <+> 1 Start Time 11/16/21 09:35:18 Diversity Manager: [id number] Modifier: [id number] 1 <*> In Room Time 11/16/21 09:33:00 1 <+> Start Time [facility] Endo - Cultures and Spec Summary Entry 1 Cultrures and Specimens Specimen Ordered: Yes Test(s) Routine/Path-Lab Requested/Final Disposition Last Modified By: Yonny Quiroga RN-PATIENT CARE BEDSIDE NON-EXEMPT 11/16/21 09:54:29 [facility] Endo - Delays Entry 1 Delay Reason Other, No Delay Duration 0 Minute(s) Last Modified By: Yonny Quiroga RN-PATIENT CARE BEDSIDE NON-EXEMPT 11/16/21 09:35:30 [facility] Endo - Departure from OR Entry 1 Integumentary Assessment Transfer/Handoff Transfer to Other Handoff Method Bedside/Face to face Post-op Transport Stretcher/Gurney Via Patient Transport TERESA AMAYA, Accompanied by JANICE PLATA MELISSA A, RN Last Modified By: Yonny Quiroga RN-PATIENT CARE BEDSIDE NON-EXEMPT 11/16/21 09:35:35 [facility] Endo - Endoscopy Details Entry 1 Abdomen Procedure Soft, Non-distended, Assessment Non-Tender Procedure Abdomen 11/16/21 09:31:00 Assessment D/T Radio Frequency Ablation Abdominal Pressure Last Modified By: Yonny Quiroga RN-PATIENT CARE BEDSIDE NON-EXEMPT 11/16/21 09:36:06 [facility] Endo - Fire Risk Assessment Entry 1 Fire Info Surgical Site or 0- No Incision Above the Xyphoid Open O2 Source 1- Yes (Mask or Cannula) Available Ignition 1- Yes (ESU, Laser, Light Source) Fire Risk 2 Assessment Score Fire Score Fire Risk Yes Assessment Complete Fire Risk GABBI CAMACHO RN Assessment Verified By Fire Risk 11/16/21 09:31:00 Assessment Verified Date/Time Fire Risk Last Modified By: Yonny Quiroga RN-PATIENT CARE BEDSIDE NON-EXEMPT 11/16/21 09:36:16 [facility] Endo - General Case Commissioner Of Internal Revenue 1 Case Information OR Endo 03 [facility] Case Level 1 Room Verified Yes Wound Class No Incision Specialty Gastroenterology Anesthesia Type General ASA Class 2 Diagnosis Preop Diagnosis Hx of polyps Postop Same As Preop Yes Postop Diagnosis Hx of polyps Wound Class Definitions Last Modified By: Yonny Quiroga RN-PATIENT CARE BEDSIDE NON-EXEMPT 11/16/21 09:36:55 [facility] Endo - Intraoperative Assessment Entry 1 Valid History / Yes Physical in Chart Preoperative Yes Checklist Reviewed/Evaluated Patient is Latex No Sensitive Last Modified By: Yonny Quiroga RN-PATIENT CARE BEDSIDE NON-EXEMPT 11/16/21 09:37:05 [facility] Endo - Intraoperative Equipment Entry 1 Type Scope Equipment Intraop Monitoring Electrocardiogram Three lead placement (ECG) Electrode Placement Blood Pressure Non-Invasive BP Device Source Antiembolic Devices Scopes Flexible Endoscopes Colonoscope Used Scope Serial L Number/Identificatio n Number Photo/Video Documentation Last Modified By: Yonny Quiroga RN-PATIENT CARE BEDSIDE NON-EXEMPT 11/16/21 09:37:20 [facility] Endo - Patient Positioning Entry 1 Procedure Colonoscopy, Colon Polypectomy Body Position Lateral, right side up Left Arm Position Resting at side Right Arm Position Resting at side Left Leg Position Other Right Leg Position Other Position Comments Left leg straight, Right leg over left leg Positioned By GABBI CAMACHO RN Position Verified Last Modified By: Yonny Quiroga RN-PATIENT CARE BEDSIDE NON-EXEMPT 11/16/21 09:37:32 [facility] Endo - Patient Positioning Audit 11/16/21 09:51:58 Diversity Manager: [id number] Modifier: [id number] 1 <*> Procedure Colonoscopy [facility] Endo - Sign In Entry 1 Patient, Site, Yes Procedure Identified Surgical Consent Yes Confirmed Surgical Site N/A Marked by person performing procedure Airway Hypothermia Risk No Warming Measures No Taken Last Modified By: Yonny Quiroga RN-PATIENT CARE BEDSIDE NON-EXEMPT 11/16/21 09:37:46 [facility] Endo - Sign Out Entry 1 RN Confirmation Surgical Yes Procedure(s) Identified Instrument, Sponge N/A and Sharps Counts Correct/Documented Equipment Problems N/A Documented Specimen Labeled Yes Correctly Urinary Catheter N/A Documented in IView Wound Yes classification reviewed, verified and updated post case in both the General Case Data and Procedure segments Safety Checklist Yes Elements Complete? RN Sign Out GABBI CAMACHO RN Signature RN Sign Out 11/16/21 09:58:00 Signature Date/Time Plan of Care Outcome - Fire Risk OUTCOME STATEMENT: Goal met Patient is free from injury related to surgical fire Plan of Care Outcome - Pt Positioning OUTCOME STATEMENT: Goal met Absence of signs and symptoms of positioning injury. Plan of Care Outcome - Skin Prep OUTCOME STATEMENT: Goal met Intraoperative care is consistent with measures to prevent infection Plan of Care Outcome - Xray/Images OUTCOME STATEMENT: N/A Absence of observable signs or symptoms of radiation injury Plan of Care Outcome - Counts OUTCOME STATEMENT: Goal met Absence of signs and symptoms of injury related to extraneous objects Last Modified By: Yonny Quiroga RN-PATIENT CARE BEDSIDE NON-EXEMPT 11/16/21 09:56:58 [facility] Endo - Sign Out Audit 11/16/21 09:57:29 Diversity Manager: [id number] Modifier: [id number] <+> 1 OUTCOME STATEMENT: Absence of signs and symptoms of injury related to extraneous objects <+> 1 OUTCOME STATEMENT: Absence of signs and symptoms of positioning injury. <+> 1 OUTCOME STATEMENT: Absence of observable signs or symptoms of radiation injury <+> 1 OUTCOME STATEMENT: Patient is free from injury related to surgical fire <+> 1 Surgical Procedure(s) Identified <+> 1 Specimen Labeled Correctly <+> 1 Equipment Problems Documented <+> 1 Instrument, Sponge and Sharps Counts Correct/Documented <+> 1 Safety Checklist Elements Complete? <+> 1 RN Sign Out Signature <+> 1 OUTCOME STATEMENT: Intraoperative care is consistent with measures to prevent infection [facility] Endo - Surgical Procedures Entry 1 Entry 2 Procedure Colonoscopy Colon Polypectomy Modifiers Additional descending colon polyp Procedure Description Primary Procedure Yes No Primary Surgeon PRISCILLA PEARCE MD-GAE MARTIN, KATHLEEN, MD-GAE Start 11/16/21 09:38:00 11/16/21 09:38:00 Stop 11/16/21 09:55:00 11/16/21 09:55:00 Physician States 11/16/21 09:42:00 11/16/21 09:42:00 Cecum Reached Anesthesia Type MAC MAC Specialty Gastroenterology Gastroenterology Wound Class No Incision No Incision Last Modified By: Yonny Quiroga Manus, David, RN-PATIENT CARE BEDSIDE RN-PATIENT CARE BEDSIDE NON-EXEMPT 11/16/21 NON-EXEMPT 11/16/21 09:50:01 09:51:56 [facility] Endo - Surgical Procedures Audit 11/16/21 09:57:08 Diversity Manager: [id number] Modifier: [id number] <+> 1 Stop <+> 2 Stop 11/16/21 09:51:56 Diversity Manager: [id number] Modifier: [id number] <+> 2 Procedure <+> 2 Primary Procedure <+> 2 Primary Surgeon <+> 2 Specialty <+> 2 Start <+> 2 Wound Class <+> 2 Anesthesia Type <+> 2 Additional Procedure Description <+> 2 Physician States Cecum Reached 11/16/21 09:50:01 Diversity Manager: [id number] Modifier: [id number] 1 <*> Procedure Colonoscopy 1 <+> Start 1 <+> Physician States Cecum Reached [facility] Endo - Time Out Entry 1 Procedure to be Colonoscopy, Colon Performed Polypectomy Time Out Time Out Pause Time 11/16/21 09:37:00 All activity Yes suspended (unless life threatening emergency) Team Verbally Correct patient Confirms Information identity, Consent form is present and accurate, Agreement on the procedure to be done, Correct patient position, Relevant images/results properly labeled/appropriately displayed, Reconcile problems if responses among team members differ Antibiotic N/A Prophylaxis Administered Or In Progress Within the Last 60 Minutes Beta Trinity N/A Administered Venous N/A Thromboembolism Prophylaxis Required Anticipated Critical Events Surgeon None expected Last Modified By: Yonny Quiroga RN-PATIENT CARE BEDSIDE NON-EXEMPT 11/16/21 09:51:59 [facility] Endo - Time Out Audit 11/16/21 09:51:59 Diversity Manager: [id number] Modifier: [id number] 1 <*> Procedure to be Performed Colonoscopy Case Comments <None> Finalized By: Yonny Quiroga RN-PATIENT CARE BEDSIDE NON-EXEMPT Document Signatures Signed By: Yonny Quiroga RN-PATIENT CARE BEDSIDE NON-EXEMPT 11/16/21 09:57 Electronically signed by Dionne [facility] Conversion Professor Of Legal Studies Cerner at 02/17/2023 1:12 PM CDT documented in this encounter Plan of Treatment Upcoming Encounters Date Type Department Care Team (Late st Contact Info) Description 06/03/2026 9:45 AM EDT Appointment [address] [place] [address] documented as of this encounter Visit Diagnoses Not on filedocumented in this encounter Care Teams Psychologist Private Practice Relationship Specialty Start Date End Date Darius Joseph MD [address] [place] [address] PCP - General Adolescent Medicine 05/17/23 Selin Alex MD [address] [place] [address] Consulting Physician Orthopedic Surgery - Hand 02/10/25 documented as of this encounter
--- OUTSIDE RECORDS SUMMARY | 2025-09-04 14:53 | XMS_ITS ---
Care Plan - [facility] Created on: September 04, 2025 Shamika Horton : 1950 Sex: Female Author Organization [facility] Address [address] [place] [address] Phone Care Team Providers Care Bean Sprout Laborer Name Role Phone CHARLES PARK, AGGIE Primary Care Provider [phone] Ismael PARK, Alvarado Reagan Unavailable [phone]
--- OUTSIDE RECORDS SUMMARY | 2025-09-04 14:53 | XMS_ITS | Referral Summary ---
Author Organization [employer] ([place], [place], [place], [place], [place]) Address [address] [place] [address] Care Team Providers Care Critical Care Nurse Name Role Phone Darius Joseph MD Primary Care Provider [phone] Selin Alex MD Unavailable [phone] Encounters Date Type Department Care Team Description 07/04/2025 Telephone [facility] - [place] [address] [place] [id number] [place], [place] Appointment from Last 3 Months Allergies Active Allergy Reactions Criticality Noted Date [...] 09/19/2023 Hypertension 09/19/2023 GERD (gastroesophageal reflux disease) Breast cancer 09/19/2023 Osteopenia 09/19/2023 Lower back pain 12/12/2022 09/19/2023 Social History Tobacco Use Types Packs/Day Years [...] Date Kiko rded Speak language other than Sinhala at home Not on file 11/09/2023 Want [...] Info) Description 06/03/2026 9:45 AM EDT Appointment [address] [address] Procedures Procedure Name Priority Date/Time Associated Diagnosis [...] the next mammogram. At our facility, a [place] marker is positioned over a visible skin [...] FACTORS: Estrogen deficiency COMPARISON STUDY: 02/15/2018 from [facility] FINDINGS: Bone densitometry was performed using a Vaccinogen QDR series machine. Sites measured included the [...] FACTORS: Estrogen deficiency COMPARISON STUDY: 02/15/2018 from [facility] FINDINGS: Bone densitometry was performed using a Vaccinogen QDR series machine. Sites measured included the [...] of tobacco and alcohol. Vanessa Matamoros MD [facility] [place] [facility] Final Resul t from Last 3 Months or Most Recently Relevant to Health Maintenance Insurance [facility] SUPPL MEDICARE PART A B Care Teams Critical Care Nurse Relationship Specialty Start Date End Date Darius Joseph MD [address] [place] [address] PCP - General Adolescent Medicine 05/17/23 Selin Alex MD [address] [place] [address] Consulting Physician Orthopedic Surgery - [facility] 02/10/25
--- OUTSIDE RECORDS SUMMARY | 2025-09-04 14:53 | XMS_ITS ---
Author Organization [facility] , [facility] Address [address] [place] [address] Phone Care Team Providers Care Residential Builder Name Role Phone AGGIE SOTO MD Primary Care Provider [phone] Ismael PARK, Alvarado Reagan Unavailable [phone] Problems Includes: Active, inactive, and resolved Problems All Visits Onset Date Resolved Date Provider Condition S tatus Lower Back Pain 12/12/2022 Alvarado Guevara MD Act julien Last Documented On 3 8:57AM ; [facility], [facility] Joint Pain Hip Right 12/12/2022 Alvarado Lang Active Last Documented On 3 9:24AM ; [facility], [facility] Plan of Treatment Instructions to patient Lose weight Last Documented On 3 9:01AM ; [facility] Assessments Includes: Assessments for all patient encounters No Assessments Recorded Instructions Includes: Instructions for all patient encounters Instructions to patient Lose weight Last Documented On 3 9:01AM ; [facility] Medical Equipment - Implanted Devices Includes: Current and historical Devices No Medical Equipment Recorded Medications Includes: Current and historical Medications Current Medications (continue as prescribed) Michelle Allergy 60 MG Oral Tablet 12/12/2022 Provide r: Diagnosis: Last Documented On 3 9:20AM By Jill Nelson ; [facility] Celecoxib 200 MG Oral Capsule 12/07/2022 Provider: AGGIE SOTO MD Diagnosis: Last Documented On 3 8:57AM By Bharath Christianson ; [facility] Past Medications on file Celecoxib 100 MG Oral Capsule 12/12/2022 - 03/12/2023 Provider: Alvarado Guevara MD Diagnosis: Take 1 tablet by mouth every 12 hours Last Documented On 3 10:14AM By Jill Nelson ; [facility] Medications Administered Includes: Administered Medications in patient's chart No Administered Medications Recorded Results Includes: Results from 09/04/2024 through 09/04/2025 No Results Recorded For Specified Dates History of Present Illness History of Present Illness not supported for this document type No History of Present Illness Recorded Social History Description Last Updated Tobacco non-user 12/12/2022 Last Documented On 3 11:54AM ; [facility] Caffeine use 12/12/2022 Last Documented On 3 11:54AM ; [facility] Exercising regularly 12/12/2022 Last Documented On 3 11:54AM ; [facility] No recent change in diet 12/12/2022 Last Documented On 3 11:54AM ; [facility] Not a current smoker. 12/12/2022 Last Documented On 3 11:54AM ; [facility] Not using alcohol 12/12/2022 Last Documented On 3 11:54AM ; [facility] Not using drugs 12/12/2022 Last Documented On 3 11:54AM ; [facility] Smoking Status Unknown Procedures and Surgical History Surgical History Last Updated History of appendectomy 12/12/2022 Last Documented On 3 11:54AM ; [facility] History of hysterectomy 12/12/2022 Last Documented On 3 11:54AM ; [facility] Medical History Includes: Medical History in patient's chart Description Last Updated History of arthritis 12/12/2022 Last Documented On 3 11:54AM ; [facility] History of History of Cancer 12/12/2022 Last Documented On 3 11:54AM ; [facility] History of osteoporosis 12/12/2022 Last Documented On 3 11:54AM ; [facility] Family History Includes: Family History in patient's chart Description Last Updated Diabetes mellitus 12/12/2022 Last Documented On 3 11:54AM ; [facility] Family history of cancer 12/12/2022 Last Documented On 3 11:54AM ; [facility] Family history of heart disease 12/12/19 Last Documented On 3 11:54AM ; [facility] Family history of rheumatoid arthritis 0 12/12/2022 Last Documented On 3 11:54AM ; [facility] Family history of thromboembolic disease 12/12/2022 Last Documented On 3 11:54AM ; [facility] Stroke / Seizures 12/12/2022 Last Documented On 3 11:54AM ; [facility] Review of Systems Review of Systems not supported for this document type No Review of Systems Recorded Mental Status No Mental Status Recorded Functional Status No Functional Status Recorded Physical Exam Physical Exam not supported for this document type No Physical Exam Recorded Allergies Includes: Active, inactive, and resolved Allergies No Known Allergies Insurance Includes: Active Insurance Policies Plan Name Member ID Group # Subscriber Relationship Effect julien Dates 1 - Medicare Part B of [place] [id number] Shamika Fuentes 2 - [facility] [id number] Shamika Fuentes Clinical Notes Includes: Signed Clinical Notes starting from 10/13/2022 No Clinical Notes Recorded
--- OUTSIDE RECORDS SUMMARY | 2025-09-04 14:53 | XMS_ITS | Encounter Summary ---
Author Organization [employer] ([place], [place], [place], [place], [place]) Address [address] [place] [address] Care Team Providers Care Network Cable Installer Name Role Phone Darius Joseph MD Primary Care Provider [phone] Selin Alex MD Unavailable [phone] Encounter Details Date Type Department Care Team (Late st Contact Info) Description 11/15/2021 Transcribed Document [facility] Family Medicine [facility] [place] [address] Shabnam العلي MD [address] [place] [id number] Social History Tobacco Use Types Packs/Day Years Used Date Smoking Tobacco: Never Assessed Comments Unknown Sex and Gender Information Value Date Recorded Sex Assigned at Not on file Legal Sex Female 5:14 PM CDT Gender Identity Not on file Sexual Orientation Not on file documented as of this encounter Miscellaneous Notes * Cerner Conversion Note - Shabnam العلي MD - 11/15/2021 2:56 PM HEALTH INFORMATICS SPECIALIST Patient Education Materials Follows: General Anesthesia, Adult, Care After This sheet gives you information about how to care for yourself after your procedure. Your health care provider may also give you more specific instructions. If you have problems or questions, contact your health care provider. What can I expect after the procedure? After the procedure, the following side effects are common: ??? Pain or discomfort at the IV site. ??? Nausea. ??? Vomiting. ??? Sore throat. ??? Trouble concentrating. ??? Feeling cold or chills. ??? Feeling weak or tired. ??? Sleepiness and fatigue. ??? Soreness and body aches. These side effects can affect parts of the body that were not involved in surgery. Follow these instructions at home: For the time period you were told by your health care provider: ??? Rest. ??? Do not participate in activities where you could fall or become injured. ??? Do not drive or use machinery. ??? Do not drink alcohol. ??? Do not take sleeping pills or medicines that cause drowsiness. ??? Do not make important decisions or sign legal documents. ??? Do not take care of children on your own. Eating and drinking ??? Follow any instructions from your health care provider about eating or drinking restrictions. ??? When you feel hungry, start by eating small amounts of foods that are soft and easy to digest (bland), such as toast. Gradually return to your regular diet. ??? Drink enough fluid to keep your urine pale yellow. ??? If you vomit, rehydrate by drinking water, juice, or clear broth. General instructions ??? If you have sleep apnea, surgery and certain medicines can increase your risk for breathing problems. Follow instructions from your health care provider about wearing your sleep device: ? Anytime you are sleeping, including during daytime naps. ? While taking prescription pain medicines, sleeping medicines, or medicines that make you drowsy. ??? Have a responsible adult stay with you for the time you are told. It is important to have someone help care for you until you are awake and alert. ??? Return to your normal activities as told by your health care provider. Ask your health care provider what activities are safe for you. ??? Take byex-trr-xzzvtth and prescription medicines only as told by your health care provider. ??? If you smoke, do not smoke without supervision. ??? Keep all follow-up visits as told by your health care provider. This is important. Contact a health care provider if: ??? You have nausea or vomiting that does not get better with medicine. ??? You cannot eat or drink without vomiting. ??? You have pain that does not get better with medicine. ??? You are unable to pass urine. ??? You develop a skin rash. ??? You have a fever. ??? You have redness around your IV site that gets worse. Get help right away if: ??? You have difficulty breathing. ??? You have chest pain. ??? You have blood in your urine or stool, or you vomit blood. Summary ??? After the procedure, it is common to have a sore throat or nausea. It is also common to feel tired. ??? Have a responsible adult stay with you for the time you are told. It is important to have someone help care for you until you are awake and alert. ??? When you feel hungry, start by eating small amounts of foods that are soft and easy to digest (bland), such as toast. Gradually return to your regular diet. ??? Drink enough fluid to keep your urine pale yellow. ??? Return to your normal activities as told by your health care provider. Ask your health care provider what activities are safe for you. This information is not intended to replace advice given to you by your health care provider. Make sure you discuss any questions you have with your health care provider. Document Revised: 07/01/2021 Document Reviewed: 01/28/2021 [employer] Patient Education ? 2020 [employer]. Radiology Colonoscopy, Adult, Care After This sheet gives you information about how to care for yourself after your procedure. Your doctor may also give you more specific instructions. If you have problems or questions, call your doctor. What can I expect after the procedure? After the procedure, it is common to have: ??? A small amount of blood in your poop (stool) for 24 hours. ??? Some gas. ??? Mild cramping or bloating in your belly (abdomen). Follow these instructions at home: Eating and drinking ??? Drink enough fluid to keep your pee (urine) pale yellow. ??? Follow instructions from your doctor about what you cannot eat or drink. ??? Return to your normal diet as told by your doctor. Avoid heavy or fried foods that are hard to digest. Activity ??? Rest as told by your doctor. ??? Do not sit for a long time without moving. Get up to take short walks every 1?2 hours. This is important. Ask for help if you feel weak or unsteady. ??? Return to your normal activities as told by your doctor. Ask your doctor what activities are safe for you. To help cramping and bloating: ??? Try walking around. ??? Put heat on your belly as told by your doctor. Use the heat source that your doctor recommends, such as a moist heat pack or a heating pad. ? Put a towel between your skin and the heat source. ? Leave the heat on for 20?30 minutes. ? Remove the heat if your skin turns bright red. This is very important if you are unable to feel pain, heat, or cold. You may have a greater risk of getting burned. General instructions ??? If you were given a medicine to help you relax (sedative) during your procedure, it can affect you for many hours. Do not drive or use machinery until your doctor says that it is safe. ??? For the first 24 hours after the procedure: ? Do not sign important documents. ? Do not drink alcohol. ? Do your daily activities more slowly than normal. ? Eat foods that are soft and easy to digest. ??? Take gwew-lmb-izrjpxz or prescription medicines only as told by your doctor. ??? Keep all follow-up visits as told by your doctor. This is important. Contact a doctor if: ??? You have blood in your poop 2?3 days after the procedure. Get help right away if: ??? You have more than a small amount of blood in your poop. ??? You see large clumps of tissue (blood clots) in your poop. ??? Your belly is swollen. ??? You feel like you may vomit (nauseous). ??? You vomit. ??? You have a fever. ??? You have belly pain that gets worse, and medicine does not help your pain. Summary ??? After the procedure, it is common to have a small amount of blood in your poop. You may also have mild cramping and bloating in your belly. ??? If you were given a medicine to help you relax (sedative) during your procedure, it can affect you for many hours. Do not drive or use machinery until your doctor says that it is safe. ??? Get help right away if you have a lot of blood in your poop, feel like you may vomit, have a fever, or have more belly pain. This information is not intended to replace advice given to you by your health care provider. Make sure you discuss any questions you have with your health care provider. Document Revised: 08/21/2020 Document Reviewed: 05/11/2020 Else[employer] Patient Education ? 2020 [employer] documented in this encounter Plan of Treatment Upcoming Encounters Date Type Department Care Team (Late st Contact Info) Description 06/03/2026 9:45 AM EDT Appointment [address] [place] [address] documented as of this encounter Visit Diagnoses Not on filedocumented in this encounter Care Teams Network Cable Installer Relationship Specialty Start Date End Date Darius Joseph MD [address] [place] [address] PCP - General Adolescent Medicine 05/17/23 Selin Alex MD [address] [place], [place] [id number] Consulting Physician Orthopedic Surgery - Hand 02/10/25 documented as of this encounter
--- OUTSIDE RECORDS SUMMARY | 2025-09-04 14:54 | XMS_ITS | Clinical Summary ---
Author Organization [facility] , [facility] Address [address] [place] [address] Phone Care Team Providers Care Die Maintenance Technician Name Role Phone CHARLES PARK, AGGIE Primary Care Provider [phone] Ismael PARK, Alvarado Reagan Unavailable [phone] Reason for Visit and Chief Complaint facet Problems Includes: Problems addressed during this encounter and other active Problems All Visits Onset Date Resolved Date Provider Condition S tatus Lower Back Pain 12/12/2022 Alvarado Guevara MD Act julien Last Documented On 3 8:57AM ; [facility], [facility] Joint Pain Hip Right 12/12/2022 Alvarado Lang Active Last Documented On 3 9:24AM ; [facility], [facility] Plan of Treatment Fall Risk Assessment: [...] with the patient. - Last Documented On 12/26/2022 8:13AM ; [facility], [facility] Assessments Includes: Assessments from this encounter No Assessments Recorded Medical Equipment - Implanted Devices Includes: Current Devices No Medical Equipment Recorded Medications Includes: Medications discussed during this encounter and other current Medications Current Medications (continue as prescribed) Michelle Allergy 60 MG Oral Tablet 12/12/2022 Provide r: Diagnosis: Last Documented On 3 9:20AM By Jill Nelson ; [facility] Celecoxib 200 MG Oral Capsule 12/07/2022 Provider: AGGIE SOTO MD Diagnosis: Last Documented On 8:57AM [facility] Medications Administered Includes: Administered Medications from this encounter No Administered Medications Recorded Results Includes: Results discussed during this encounter No Results Recorded For Specified Dates History of Present Illness Includes: History of Present Illness from this encounter No History of Present Illness Recorded Social History No Social History Recorded - Smoking Status Unknown Medical History Includes: Medical History addressed during this encounter No Medical History Recorded Family History Includes: Family History addressed during this encounter No Family History Recorded Review of Systems Includes: Review of Systems from this encounter No Review of Systems Recorded Mental Status Includes: Mental Status from this encounter No Mental Status Recorded Functional Status Includes: Functional Status from this encounter No Functional Status Recorded Physical Exam Includes: Physical Exam from this encounter Allergies Includes: Active Allergies No Known Allergies Encounters Encounter Provider Location Date Check-In Time Check-Out Time Diagnosis facet Juan Huerta PA-C [facility] 12/22/19 2:17PM 3:13PM Insurance Includes: Active Insurance Policies Plan Name Member ID Group # Subscriber Relationship Effect julien Dates 1 - Medicare Part B [facility] [id number] Shamika Horton [facility] 2 - [facility] [id number] Shamika Fuentes Clinical Notes Includes: Clinical Notes from this encounter * Progress note Date Encounter Last Documented by 12/22/2022 facet Last documented on 12/26/2022; 8:13 AM, Juan Huerta PA-C; [facility] Physical Findings HPI: Low back pain, facet arthropathy Exam: Skin over the lumbar spine is clean and dry. No rash or sign of cellulitis. The patient was brought to the fluoroscopic suite and informed of the risks and benefits of the procedure. The patient gave consent and elected to proceed. The overlying skin was cleaned and prepped in the usual sterile fashion with chlorhexidine. Fluoroscopy was utilized to guide a 3-1/2 inch 22-gauge spinal needle over the Right: L4-L5 facet joint Left: L4-L5 facet joint Subsequently an injection of 0.5 mL of betamethasone, 0.5 mL Marcaine was injected into each facet joint. The patient tolerated the procedure well and there were no complications. Follow-up: The patient was seen by myself, Juan Huerta PA-C Electronically signed IFRAH Cifuentes Plan Fall Risk Assessment: This patient has been [...]
== END 2025-09-04 23:59 | disposition home or self-care (01) ==
LOC: RAD 14:50
PROVIDERS: PCP Internal Medicine Adolescent Medicine; Visit Provider Student in an Organized Health Care Education/Training Program
DX: M51.34 Other intervertebral disc degeneration, thoracic region (principal); M99.72 Connective tissue and disc stenosis of intervertebral foramina of thoracic region; M48.8X4 Other specified spondylopathies, thoracic region; M80.08XA Age-related osteoporosis with current pathological fracture, vertebra(e), initial encounter for fracture
CPT/HCPCS: 72146